=== PATIENT | female | born 1950 | race Caucasian/White ===

== ENCOUNTER 2019-11-10 20:00 | Outpatient (CLI) | payer MEDICARE, OTHER, SELFPAY | END 2019-11-10 20:01 | disposition home or self-care (01) | LOC: SLEEP 11-11 08:45 | PROVIDERS: Family Provider Internal Medicine; PCP Internal Medicine; Visit Provider Specialist | DX: G47.33 Obstructive sleep apnea (adult) (pediatric) (principal) | CPT/HCPCS: 95810; 95811 ==

== ENCOUNTER 2020-01-11 07:57 | Day surgery (SDC) | payer MEDICARE, OTHER, SELFPAY ==
[2020-01-08 07:49] VITALS: BMI 30.9
--- NOTE | 2020-01-11 08:34 | ANES.PREANE2 ---
Pre-Anesthetic Assessment Pre-Anesthetic Assessment: Height/Weight: Height 1.63 m Weight 81.647 kg Preop Diagnosis: dysphagia Proposed Procedure: Operation Date: 01/11/20 09:00 Proposed Procedures p EGD(Not Applicable) - Matthew Noel MD Was Beta Desmond taken within 24 hours: Yes Last intake: 1700 solid and liquid. Social: Social History: No alcohol and No tobacco (quit 1999. ) Exam: Pre-Anes Outpt Exam: alert, oriented x 3, clear to auscultation bilaterally and regular rate & rhythm Airway: Submandibular: Other Cervical ROM: WNL MP: 1 Dentition: Full Pulmonary: Pulmonary: MALDONADO and Sleep apnea (cpap) Comments: lung cancer CV/HEM: CV/HEM: Afib and HTN : : None reported Hepatic: Hepatic: None reported GI: GI: None reported Metabolic: Metabolic: Thyroid Musc/skel: Musc/skel: OA/DJD Neuropsych: Neuropsych: KRAUS Anesthetic Plan: ASA status: 3 Anesthesia: MAC PFSH Anesthesia PFSH: Social History Smoking and tobacco status: never smoked Alcohol intake: never Household members: spouse Housing: House Marital status: History of recent travel: No Data Anesthesia Cardiac Studies: No Data to Display
[2020-01-11 08:37] VITALS: BP 155/64; PULSE 73; RESP 20; TEMP 36.1; O2SAT 97
[2020-01-11] MEDS: sodium chloride 0.9% 1,000 ML 30 ML (08:56)
--- NOTE | 2020-01-11 08:59 | W.PM.OPSUD ---
Surgery/Procedure H&P Update DATE OF PROCEDURE: January 11, 2020 DATE H&P PERFORMED: 01/06/20 PREOP DIAGNOSIS: dysphagia PLANNED PROCEDURE: Operation Date: 01/11/20 09:00 Proposed Procedures p EGD(Not Applicable) - Matthew Noel MD
[2020-01-11 09:33] VITALS: BP 118/67; PULSE 67; RESP 16; TEMP 36.1
--- NOTE | 2020-01-11 09:36 | ANE.PACU2 ---
 Inpatient post-anesthesia follow up: Airway intact: Yes Vital signs: Temperature 97 F Pulse Rate 73 Respiratory Rate 20 Blood Pressure 155/64 Pulse Oximetry 97 Oxygen Delivery Me thod Room Air Oxygen Flow Rate Fraction of Inspir ed Oxygen Hydration adequate: Yes Nausea and vomiting: No Mental status: Baseline
[2020-01-11 09:48] VITALS: BP 122/85; PULSE 61; RESP 18; O2SAT 95
== END 2020-01-11 10:11 | disposition home or self-care (01) ==
PROVIDERS: Family Provider Internal Medicine; PCP Internal Medicine; Visit Provider Internal Medicine
PROC: 0DJ08ZZ Inspection of Upper Intestinal Tract, Via Natural or Artificial Opening Endoscopic (ICD-10-PCS; CPT 43235; principal; 2020-01-11 09:00)
DX: R13.10 Dysphagia, unspecified (principal); I48.91 Unspecified atrial fibrillation; K21.9 Gastro-esophageal reflux disease without esophagitis; Z85.118 Personal history of other malignant neoplasm of bronchus and lung; G47.33 Obstructive sleep apnea (adult) (pediatric); Z87.891 Personal history of nicotine dependence; G47.30 Sleep apnea, unspecified; I10 Essential (primary) hypertension; M19.90 Unspecified osteoarthritis, unspecified site
CPT/HCPCS: 12345; 43235; J2704; J7030

== ENCOUNTER 2020-03-11 13:07 | Outpatient (CLI) | payer MEDICARE, OTHER, SELFPAY ==
--- NOTE | 2020-03-11 13:30 | CT_ITS ---
WS: [id number] CT HEAD TECHNIQUE: Noncontrast and contrast-enhanced CT of the head. 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 FINDINGS: Prior postoperative changes right frontotemporal craniotomy with beam hardening artifact from aneury sm clips. Beam hardening artifact degrades images through the right temporal lobe. Chondromalacia at right temporal lobe. Right parietal shunt catheter with tip in the body of the left lateral ventricle . Lateral ventricles are stable since the prior examinations in 2018. Third ventricle measures 13 mm unchanged since April 10, 2019. Temporal lobes and fourth ventricle are decompressed. No significant transependymal edema. No evidenc e of progressive hydrocephalus. Mild small vessel changes with moderate parenchymal volume loss.Chronic lacunar infarct right thalamu s. Right parietal kolby hole. Mastoid air cells are well aerated. Paranasal sinuses are well aerated. Small left maxillary retentio n cyst. No abnormal intracranial enhancement. CT/CT head wo/w con [id number] IMPRESSION: 1. Right parietal shunt catheter with tip in the left lateral ventricle. No ev idence of progressive hydrocephalus. Stable dilatation of the third ventricle c ompared to April 10, 2019. No transependymal edema. 2. 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 Right parietal kolby hole. Marii m Bernardo artifact. 3. Chronic lacunar infarct right thalamus is unchanged. 4. No abnormal intracranial enhancement. 5. Mild small vessel changes with moderate parenchymal volume loss.
[2020-03-11 13:49] LABS: Blood Urea Nitrogen 12 mg/dL (8-23)
[2020-03-11] MEDS: iohexol 300 mg/mL 100 mL Btl IV (14:10)
== END 2020-03-11 13:08 | disposition home or self-care (01) ==
LOC: RADWPI 13:14
PROVIDERS: Family Provider Internal Medicine; PCP Internal Medicine; Visit Provider Internal Medicine
DX: Z98.2 Presence of cerebrospinal fluid drainage device (principal); I63.81 Other cerebral infarction due to occlusion or stenosis of small artery
CPT/HCPCS: 70470; 82565; 84520; Q9967

== ENCOUNTER → 2020-04-06 16:06 | Outpatient (BNVA) | payer MEDICARE, OTHER, SELFPAY | PROVIDERS: Family Provider Internal Medicine; PCP Internal Medicine; Visit Provider Internal Medicine | DX: R41.89 Other symptoms and signs involving cognitive functions and awareness (principal); E03.9 Hypothyroidism, unspecified; N39.0 Urinary tract infection, site not specified; Z98.2 Presence of cerebrospinal fluid drainage device | CPT/HCPCS: 80053; 82607; 84443; 85025 ==

== ENCOUNTER 2020-05-11 12:00 | Outpatient (CLI) | payer MEDICARE, OTHER, SELFPAY ==
--- NOTE | 2020-05-11 12:15 | MM_ITS ---
WS: [id number] BILATERAL SCREENING DIGITAL MAMMOGRAM WITH CAD HISTORY: SCREENING COMPARISON: 01/01/2019 and 12/25/2017 and 12/11/2017 Bilateral CC and MLO views submitted. Computer aided detection analyzed. Breast composition: The breasts are heterogeneously dense, which may obscure small masses. No suspici ous masses, microcalcifications or architectural distortion. MM/[place] [id number] IMPRESSION: BI-RADS: 1-Negative FOLLOW UP: 1 Year Follow-up
== END 2020-05-11 12:01 | disposition home or self-care (01) ==
LOC: RADSHAW 12:09
PROVIDERS: PCP Internal Medicine; Visit Provider Legal Medicine
DX: Z12.31 Encounter for screening mammogram for malignant neoplasm of breast (principal)
CPT/HCPCS: 77067

== ENCOUNTER 2020-10-27 15:23 | Inpatient (IN) | payer MEDICARE, OTHER, SELFPAY ==
[2020-10-27] VITALS (11 sets, daily range): BP systolic 121–176; BP diastolic 53–82; PULSE 66–98; RESP 16–25; TEMP 36.4–37.7; O2SAT 90–97; BMI 29.8
--- NOTE | 2020-10-27 | SCC_ITS ---
Procedure Done: Intramedullary nail left hip 95.8 seconds of fluoroscopic guidance, for a cumulative dose of 19.48 mGy, was provided to Dr. Esteves by the radiology department. C-arm images of the LEFT hip were saved for the patient's permanent record. [facility]
--- NOTE | 2020-10-27 15:45 | CTR_ITS ---
PROCEDURE INFORMATION: Exam: CT Head Without Contrast Exam date and time: 10/27/2020 4:01 PM Age: 70 years old Clinical indication: Injury or trauma; Blunt trauma (contusions or hematomas); Without loss of consciousness; Prior surgery; Surgery date: 6+ months; Surgery type: Lift Operator shunt; Patient HX: Nh PT w unwitnessed fall denies loc C/O L hip pain - multiple recent falls per staff TECHNIQUE: Imaging protocol: Computed tomography of the head without contrast. Radiation optimization: All CT scans at this facility use at least one of these dose optimization techniques: automated exposure control; mA and/or kV adjustment per patient size (includes targeted exams where dose is matched to clinical indication); or iterative reconstruction. COMPARISON: CT head wo/w con [id number] 03/11/2020 1:58 PM RADIATION DOSE METRICS: Total DLP (mGy-cm): 888.07 FINDINGS: Tubes, catheters and devices: Right parietal approach ventriculostomy catheter with its tip in the left lateral ventricle. Brain: There are moderate periventricular and subcortical lucencies consistent with chronic microvascular ischemic changes. Cerebral ventricles: No ventriculomegaly. Bones/joints: Right frontotemporal craniotomy . 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 Paranasal sinuses: Visualized sinuses are unremarkable. No fluid levels. Mastoid air cells: Visualized mastoid air cells are well aerated. Orbital cavity: Bilateral cataract surgery. Soft tissues: Unremarkable. CT/CT head wo con* [id number] IMPRESSION: No acute intracranial abnormality. Chronic microvascular ischemic changes. Radiation Dose CTDIVOL = (mGy): DLP = 888.07 (mGy-cm)
--- NOTE | 2020-10-27 15:45 | CTR_ITS ---
PROCEDURE INFORMATION: Exam: CT Abdomen And Pelvis Without Contrast Exam date and time: 10/27/2020 4:01 PM Age: 70 years old Clinical indication: Injury or trauma; Blunt; Lower; Prior surgery; Surgery date: 6+ months; Surgery type: Hyst, aneurysm; Patient HX: Nh PT w unwitnessed fall denies loc C/O L hip pain - multiple recent falls per staff TECHNIQUE: Imaging protocol: Computed tomography of the abdomen and pelvis without contrast. Radiation optimization: All CT scans at this facility use at least one of these dose optimization techniques: automated exposure control; mA and/or kV adjustment per patient size (includes targeted exams where dose is matched to clinical indication); or iterative reconstruction. COMPARISON: No relevant prior studies available. RADIATION DOSE METRICS: Total DLP (mGy-cm): 947.47 FINDINGS: Mediastinal space: Moderate size hiatal hernia. Liver: Normal. No mass. Gallbladder and bile ducts: Normal. No calcified stones. No ductal dilation. Pancreas: Normal. No ductal dilation. Spleen: Normal. No splenomegaly. Adrenal glands: Normal. No mass. Kidneys and ureters: 1.2 cm cyst in the lower pole of left kidney. Stomach and bowel: Diverticulosis of the sigmoid colon. Appendix: No evidence of appendicitis. Intraperitoneal space: Unremarkable. No free air. No significant fluid collection. Vasculature: Atherosclerotic calcification of the abdominal aorta and bilateral iliac vessels. Lymph nodes: Unremarkable. No enlarged lymph nodes. Urinary bladder: Unremarkable as visualized. Reproductive: Unremarkable as visualized. Bones/joints: There is acute comminuted fracture of the left femoral neck . Diffuse demineralization of the bones. Soft tissues: Bilateral inguinal hernias containing fat. A catheter, likely a AUTOMOTIVE LUBE TECHNICIAN shunt with its tip in the left lower abdomen. CT/CT abdomen pelvis wo con [id number] IMPRESSION: Acute comminuted fracture of the left femoral neck. COMMENTS: Consistent with the [employer]'s Incidental Findings Committee white paper (J Am Miguel Radiol 2018): Any incidental renal lesion less than 1 cm or classified as too small to characterize, or any incidental cystic renal lesion characterized as simple-appearing, is likely benign. No follow-up imaging is recommended for these lesions per consensus recommendations based on imaging criteria. Radiation Dose CTDIVOL = (mGy): DLP = 947.47 (mGy-cm)
--- NOTE | 2020-10-27 15:45 | XRR_ITS ---
PROCEDURE INFORMATION: Exam: XR Chest, 1 View Exam date and time: 10/27/2020 3:51 PM Age: 70 years old Clinical indication: Injury or trauma; Fall; Sprain or strain TECHNIQUE: Imaging protocol: XR of the chest Views: 1 view. COMPARISON: CR Chest 2 views* [id number] 12/21/2016 12:16 PM FINDINGS: Lungs: Unremarkable. No consolidation. Pleural space: Unremarkable. No pleural effusion. No pneumothorax. Heart/Mediastinum: Unremarkable. No cardiomegaly. Bones/joints: Unremarkable. XR/XR chest 1V portable [id number] IMPRESSION: No acute findings.
--- NOTE | 2020-10-27 15:56 | ED_ITS ---
HPI - Extremity Problem General: Chief complaint: Extremity Injury, Lower Stated complaint: FALL, L HIP PAIN Time Seen by Provider: 10/27/20 15:26 History of Present Illness: HPI Narrative: The patient is a 70-year-old female on Xarelto who comes to the ER after a fall. She says she was getting out of the bathroom and fell backwards hitting her tailbone and back of her head and upper neck. Says she still has pain in those areas. Denies loss of consciousn ess. She says she laid there for a while and then decided to call ambulance to come in. She is in severe pain in her tailbone region Pain Consistency: constant Quality: sharp Associated symptoms: Deny chest pain or rash Review of Systems 2 General: Reports: 10 or more systems reviewed and unremarkable except in HPI and below Const: Denies: fatigue Eyes: Denies: change in vision, blurry vision or eye redness ENMT: Denies: throat pain, swelling of lips/tongue, ear or mastoid pain or nasal congestion Card: Denies: chest pain, palpitations, irregular heart rhythm, edema, dyspnea on exertion or orthopnea Resp: Denies: dyspnea, productive cough or non-productive cough GI: Denies: abdominal pain, diarrhea or GI cramping : Denies: flank pain, difficulty voiding, urinary frequency or urinary urgency Musc: Reports: neck pain, back pain, joint pain and limited range of motion; Denies: extremity pain, joint redness or muscle weakness Skin/Breast: Denies: rash, pruritus, erythema, skin pain or skin tenderness Neuro: Reports: headache(s) and difficulty walking; Denies: numbness in extremities, weakness in extremities, sensory changes, dizziness, confusion or Slurred speech present Psych: Denies: anxiety or depression Endo: Denies: polyuria All/Imm: Denies: urticaria, throat swelling or tongue swelling PFSH ED PFSH: Medical History A-fib GERD (gastroesophageal reflux disease) H/O: lung cancer KRISTIN (obstructive sleep apnea) Surgical History S/P aneurysm repair X3 S/P hemorrhoidectomy S/P hysterectomy S/P LATHE WINDER shunt Social History Smoking and tobacco status: never smoked Alcohol intake: never Household members: spouse Housing: House Marital status: History of recent travel: No Physical Exam Const: COMMON NORMALS: no acute distress, average body habitus, patient oriented x3, no limitations, healthy appearing, alert and well nourished GENERAL APPEARANCE: cooperative, comfortable, well kempt and well developed ORIENTATION/CONSCIOUSNESS: Yes awake, Yes oriented to person, Yes oriented to place and Yes oriented to time HENMT: COMMON NORMALS: normocephalic, external ears normal and Normal external nose present HEAD & SCALP: normal to inspection and normocephalic NOSE: Normal external nose present EXTERNAL EAR: Yes external ears normal MOUTH: Normal oral and palatal mucosa present THROAT: posterior oropharynx normal Eye: COMMON NORMALS: Equal, round and reactive pupils present and EOMs intact bilaterally GENERAL EYE: appearance normal, both eyes and all related structures PUPIL: Yes Equal, round and reactive pupils present Neck/C-Spine: COMMON NORMALS: full ROM, no lymphadenopathy, no meningeal signs and no JVD GENERAL: Yes normal visual inspection OTHER: Mild tenderness to paracervical musculature. No midline tenderness or bony step-offs. Mild tenderness to posterior scalp no significant bruising or abrasions seen. Lymph: LYMPHATIC: no lymphadenopathy noted Chest: COMMONS NORMALS: normal inspection of the chest and normal palpation of entire chest wall Resp: COMMON NORMALS: normal respiratory effort, No retractions, No use of accessory muscles, clear to auscultation bilaterally and percussion normal EFFORT & INSPECTION: Yes able to speak in complete sentences AUSCULTATION: clear to auscultation bilaterally PERCUSSION: percussion normal Cardio: COMMON NORMALS: no JVD, regular rate, regular rhythm, S1 normal heart sound present, S2 normal heart sound present and Peripheral pulses 2+ throughout RATE: regular rate RHYTHM: regular rhythm HEART SOUNDS: S1 normal heart sound present and S2 normal heart sound present PERIPHERAL PULSES: Peripheral pulses 2+ throughout GI: COMMON NORMALS: Normal to inspection, nondistended, normoactive bowel sounds present, Soft to palpation, non-tender and no masses INSPECTION: Yes normal to inspection PALPATION: Yes Soft to palpation : COMMON NORMALS: Yes no CVA tenderness BLADDER/KIDNEY EXAM: Yes no CVA tenderness Back/Pelvis: COMMON NORMALS: no CVA tenderness and thoracic and lumbar spine normal to inspection LUMBAR SPINE/LOWER BACK: Yes ROM limited, Yes pain with ROM, Yes lumbar spinal tenderness and Yes paraspinal muscle tenderness SACRUM: tenderness COCCYX: Coccyx tenderness present BACK IMAGE (FEMALE): 1. Severe pain and tenderness Extremity: COMMON NORMALS: normal to inspection, full ROM, capillary refill normal, no joint enlargement and no pedal edema GENERAL: Yes normal exam except as noted Neuro: COMMON NORMALS: patient oriented x3, CN's II-XII intact bilaterally, moves all extremities, no focal motor deficits, no sensory deficits noted and gait normal SENSORIUM/ORIENTATION: Yes alert, Yes oriented to person, Yes oriented to place and Yes oriented to time MENINGEAL SIGNS: Yes no meningeal signs Psych: COMMON NORMALS: mental status grossly normal, Normal thought process present, cooperative, normal affect and speech normal APPEARANCE: Yes well kempt ATTITUDE: Yes calm SPEECH: Yes normal speech THOUGHT PROCESS: Normal thought process present Skin: COMMON NORMALS: no rashes or lesions noted GENERAL SKIN EXAM: no rashes or lesions noted Course Vital Signs: Vital signs: Vital Signs Temperature 97.5 F L 10/27/20 15:23 Pulse Rate 79 10/27/20 16:31 Respiratory Rate 21 H 10/27/20 16:31 Blood Pressure 163/75 10/27/20 15:31 Pulse Oximetry 97 10/27/20 16:31 MDM - Extremity (Nontraumatic) MDM Narrative: Medical decision making narrative: The patient came in after a fall. She has a fracture to her left femoral neck. Discussed with Dr. Esteves who will see her tomorrow. Dr. Wade accepts for her care upstairs Lab Data: Labs: Lab Results 10/27/20 10/27/20 10/27/20 Range/Units 16:50 16:50 16:50 WBC 15.5 H (4.0-10.0) 10^3/ uL RBC 4.38 (4.1-5.3) 10^6/u L Hgb 12.7 (11.5-15.3) g/dL Hct 39.4 (37.0-47.0) % MCV 90.0 (81-99) fL MCH 29.0 (28.0-34.0) pg MCHC 32.2 (30.0-36.0) g/dL RDW 13.1 (12.1-15.1) % Plt Count 321 (130-400) 10^3/c mm MPV 8.9 (7.4-10.4) fL Neut % (Auto) 83.8 % Lymph % (Auto) 11.0 % [place] % (Auto) 3.8 % Eos % (Auto) 0.3 % Baso % (Auto) 0.3 % Neut # (Auto) 12.95 H (1.8-7.7) 10^3/u L Lymph # (Auto) 1.7 (0.8-4.8) 10^3/u L [place] # (Auto) 0.6 (0.2-0.9) 10^3/u L Eos # (Auto) 0.1 (0.0-0.8) 10^3/u L Baso # (Auto) 0.1 (0.0-0.1) 10^3/u L Nucleated RBC % (a uto) 0 % Nucleated RBCs # 0.0 /100WBC Sodium 141 (136-145) mmol/L Potassium 3.9 (3.5-5.1) mmol/L Chloride 104 (98-107) mmol/L Carbon Dioxide 27 (22-29) mmol/L Anion Gap 13.9 (5-19) BUN 26 H (8-23) mg/dL Creatinine 1.3 H (0.5-0.9) mg/dL GFR Calculation Not Reportable Glucose 120 H (65-115) mg/dL Calculated Osmolal ity 298 H (285-295) mOsm/k g Calcium 9.7 (8.5-10.5) mg/dL Total Bilirubin 0.4 (0.15-1.2) mg/dL AST 38 H (0-32) U/L ALT 30 (0-33) U/L Alkaline Phosphata se 105 (35-105) IU/L Total Protein 7.3 (6.6-8.7) g/dL Albumin 4.1 (3.5-5.2) g/dL Globulin 3.2 (1.3-4.6) g/dL Urine Color Yellow (Yellow) Urine Appearance Hazy A (CLEAR) Urine pH 5 (5-7) Ur Specific Gravit y 1.020 (1.005-1.030) Urine Protein Neg (Negative) Urine Glucose (UA) Norm (Normal) Urine Ketones Negative (Negative) Urine Blood Neg (Negative) Urine Nitrate Negative (Negative) Urine Bilirubin Neg (Negative) Urine Urobilinogen Norm (Negative) mg/dL Ur Leukocyte Laila ase Negative (Negative) Amorphous Sediment Not Reportable Discharge Plan Discharge Prescriptions: No Action Xarelto 20 mg tablet 20 mg PO DAILY@08 RF: 0 metoprolol succinate 25 mg tablet extended release 24 hr 25 mg PO DAILY@08 RF: 0 Advair HFA 115-21 mcg/actuation HFA aerosol inhaler 2 puff INHALATION BID PRN (Reason: sob) Qty: 36 RF: 3 doxycycline hyclate 100 mg capsule 100 mg PO BID@08,20 RF: 0 citalopram 40 mg tablet 40 mg PO DAILY@08 RF: 0 levothyroxine [Synthroid] 25 mcg tablet 25 mcg PO DAILY@06 RF: 0 pantoprazole 40 mg tablet,delayed release (DR/EC) 40 mg PO DAILY@06 RF: 0 fluticasone propionate [Allergy Relief (fluticasone)] 50 mcg/actuation spray,suspension 2 spray INTRANASAL BID@08,20 RF: 0 quetiapine 50 mg tablet 50 mg PO BID@08,20 RF: 0 Discharge Diet: Usual diet Discharge Activity: Bedrest Coding Level of Care Code ED Registered Physical Therapist for [facility]el[facility] Fwd Exam Comprehensive
--- NOTE | 2020-10-27 16:44 | XRR_ITS ---
PROCEDURE INFORMATION: Exam: XR Cervical Spine, 2 or 3 Views Exam date and time: 10/27/2020 5:07 PM Age: 70 years old Clinical indication: Injury or trauma; Fall; Sprain or strain, cervical ligaments; Prior surgery; Surgery date: 6+ months TECHNIQUE: Imaging protocol: XR of the cervical spine, 2 or 3 views. COMPARISON: MRA Carotid wo contrast [id number] 07/12/2016 12:28 PM FINDINGS: Tubes, catheters and devices: A right-sided CARDIAC CATHETERIZATION TECHNICIAN shunt catheter is visualized. Bones/joints: Degenerative changes of the spine. Soft tissues: Unremarkable. Vasculature: Atherosclerotic calcification of the aortic arch. XR/XR cervical spine 3V* [id number] IMPRESSION: No acute abnormality.
--- NOTE | 2020-10-27 16:49 | ECG_ITS ---
[facility] Test Date: 2020-10-27 Pat Name: Hilary Moreno Department: Room: Gender: Female Cardiac Care Unit Nurse: : 1950 Requested By: Ted Arellano Order Number: [id number] Mcmahan MD: Joon Almeida M.D. Measurements Intervals [place] Rate: 65 P: 82 CT: 171 QRS: 36 QRSD: 86 T: 63 QT: 425 QTc: 444 Interpretive Statements SINUS RHYTHM WITH SINUS ARRHYTHMIA No previous ECG available for comparison Electronically Signed On 10-28-2020 17:56:27 TOOL ROOM ATTENDANT by Joon Almeida M.D. [email or web address]
[2020-10-27 17:03] LABS: Basophils # 0.1 10^3/uL (0.0-0.1); Basophils % 0.3 %; Eosinophils # 0.1 10^3/uL (0.0-0.8); Eosinophils % 0.3 %; Hematocrit 39.4 % (37.0-47.0); Hemoglobin 12.7 g/dL (11.5-15.3); Lymphocytes # 1.7 10^3/uL (0.8-4.8); Mean Corpuscular HGB Conc 32.2 g/dL (30.0-36.0); Mean Platelet Volume 8.9 fL (7.4-10.4); Monocytes # 0.6 10^3/uL (0.2-0.9); Monocytes % 3.8 %; Neutrophils # 12.95 10^3/uL (1.8-7.7); Neutrophils % 83.8 %; Nucleated Red Blood Cells % 0 %; Platelet Count 321 10^3/cmm (130-400); Red Blood Count 4.38 10^6/uL (4.1-5.3); Red Cell Distribution Width 13.1 % (12.1-15.1); White Blood Count 15.5 10^3/uL (4.0-10.0)
[2020-10-27 17:28] LABS: Alanine Aminotransferase 30 U/L (0-33); Albumin Level 4.1 g/dL (3.5-5.2); Alkaline Phosphatase 105 IU/L (35-105); Anion Gap 13.9 (5-19); Aspartate Amino Transferase 38 U/L (0-32); Blood Urea Nitrogen 26 mg/dL (8-23); Calcium 9.7 mg/dL (8.5-10.5); Carbon Dioxide 27 mmol/L (22-29); Chloride 104 mmol/L (98-107); Globulin 3.2 g/dL (1.3-4.6); Glucose 120 mg/dL (65-115); Osmolality Calculated 298 mOsm/kg (285-295); Potassium 3.9 mmol/L (3.5-5.1); Sodium 141 mmol/L (136-145); Total Bilirubin 0.4 mg/dL (0.15-1.2); Total Protein 7.3 g/dL (6.6-8.7)
[2020-10-27 17:50] LABS: Add Urine Microscopic? YES; Bilirubin Urine Neg (Negative); Blood Urine Neg (Negative); Glucose Urine UA Norm (Normal); Ketones Urine Negative (Negative); Leukocyte Esterase Urine Negative (Negative); Nitrate Urine Negative (Negative); Protein Urine Neg (Negative); Urine Appearance Hazy (CLEAR); Urine Color Yellow (Yellow); Urobilinogen Urine Norm (Negative); pH Urine 5 (5-7)
[2020-10-27 18:01] LABS: Add Urine Culture? No; Bacteria Urine 1+ /hpf; Mucus Urine 2+ /hpf; RBC Urine 0-4 /hpf (0-2)
[2020-10-27] MEDS: morphine 4 mg/mL SDV 1 mL 2 MG IVP ×2 (18:04→21:33)
--- NOTE | 2020-10-27 18:41 | P.HP_ITS ---
Providers/Chief Complaint Primary Care Provider: Matthew Noel MD Chief Complaint: FALL, L HIP PAIN History of Present Illness Hilary Moreno is a 70 year old female with a past medical history of atrial fibrillation on Xarelto, history of ventricular peritoneal shunt, history of stroke, history of pulmonary emboli, dementia, GERD, KRISTIN who presents to [facility] status post fall. Currently patient is alert to person, place, not to time, she at times is fairly scattered, is difficult to get a straight answer from her. She tells me that today she was in a local hardware store, she is playing with her grandkids, when she turned around, and fell to the ground, hitting her tailbone, the back of her head, her upper neck, no loss of consciousness, no preceding chest pain, no palpitations, no loss of consciousness, no seizure-like episodes, no urinary or bowel incontinence, currently having severe pain over the right pelvis Patient also repeats intermittent episodes of chest pain, denies a cardiovascular history, does have a history of atrial fibrillation, chest pain is substernal, fairly nonspecific, nonradiating, not associate with lightheadedness, dizziness, no diaphoresis Review of Systems Const: Denies: fever(s), chills, fatigue or malaise Eyes: Denies: change in vision or blurry vision ENMT: Denies: nasal congestion Resp: Denies: dyspnea, productive cough, non-productive cough or wheezing GI: Denies: abdominal pain, nausea, vomiting, hematemesis, diarrhea, constipation, hematochezia or melena : Denies: flank pain, dysuria or urinary frequency Musc: Reports: neck pain, back pain, extremity pain and joint pain Skin/Breast: Denies: rash Neuro: Denies: headache(s), dizziness or vertigo Psych: Denies: anxiety or depression Endo: Denies: polyuria or polydipsia Medications/Allergies Home Medications Medication Instructions Recorded Confirmed Last Taken Type rivaroxaban 20 mg tablet 20 mg PO DAILY@11/12/19 10/27/20 10/27/20 History fluticasone propionate 115 2 puff INHALATION BID PRN #36 gm 03/10/20 10/27/20 Unknown Rx mcg-salmeterol 21 mcg/actuation HFA inhaler metoprolol succinate 25 mg 25 mg PO DAILY@08 10/10/20 10/27/20 10/27/20 History tablet,extended release 24 hr citalopram 40 mg PO DAILY@10/27/20 10/27/20 10/27/20 History doxycycline hyclate 100 mg PO BID@10/27/20 10/27/20 10/27/20 History fluticasone propionate [Allergy 2 spray INTRANASAL BID@10/27/20 10/27/20 10/27/20 History Relief (fluticasone)] levothyroxine [Synthroid] 25 mcg PO DAILY@10/27/20 10/27/20 10/27/20 History pantoprazole 40 mg PO DAILY@10/27/20 10/27/20 10/27/20 History quetiapine 50 mg PO BID@10/27/20 10/27/20 10/27/20 History Allergies Allergy/AdvReac Type Severity Reaction Status Date / Time lorazepam [From Ativan] Allergy Unknown Verified 10/24/20 12:52 PFSH Acute PFSH: Medical History (Updated 10/27/20 @ 18:52 by Darshan Wade MD) A-fib Cataract Cerebral aneurysm Chronic diarrhea GERD (gastroesophageal reflux disease) H/O: lung cancer History of CVA (cerebrovascular accident) History of pulmonary embolism Hyperthyroidism Hypertriglyceridemia KRISTIN (obstructive sleep apnea) Primary osteoarthritis of left knee Surgical History (Updated 10/27/20 @ 18:48 by Darshan Wade MD) History of esophagogastroduodenoscopy (EGD) 06/14/2014 S/P aneurysm repair X3 S/P appendectomy S/P arterial stent S/P colonoscopy 06/14/2014- REFLUX ESOGAPHAGITIS- GASTRITIS S/P hemorrhoidectomy S/P hysterectomy S/P ventriculoperitoneal shunt S/P COPYIST shunt Social History Smoking and tobacco status: never smoked Alcohol intake: never Household members: spouse Housing: House Marital status: History of recent travel: No Vitals/I&O/Wt Last Vital Signs Temp 97.5 F L 10/27/20 15:23 Pulse 87 10/27/20 18:00 Resp 18 10/27/20 18:04 BP 132/66 10/27/20 18:00 Pulse Ox 90 10/27/20 18:00 Weight last 48 hrs Weight 83.915 kg Physical Exam Const: COMMON NORMALS: no acute distress GENERAL APPEARANCE: cooperative and comfortable ORIENTATION/CONSCIOUSNESS: Yes awake, Yes oriented to person and Yes oriented to place; not oriented to time HENMT: COMMON NORMALS: normocephalic HEAD & SCALP: normocephalic Eye: COMMON NORMALS: Equal, round and reactive pupils present and EOMs intact bilaterally GENERAL EYE: appearance normal, both eyes and all related stru ctures PUPIL: Yes Equal, round and reactive pupils present Neck/C-Spine: COMMON NORMALS: full ROM, no lymphadenopathy, no JVD and Thyroid normal THYROID: Thyroid normal Lymph: LYMPHATIC: no lymphadenopathy noted Resp: COMMON NORMALS: normal respiratory effort, No retractions, No use of accessory muscles and clear to auscultation bilaterally AUSCULTATION: clear to auscultation bilaterally Cardio: COMMON NORMALS: no JVD, regular rate, regular rhythm, S1 normal heart sound present, S2 normal heart sound present, No gallops present (Cardio), No clicks present (Cardio) and No murmurs present (Cardio) RATE: regular rate RHYTHM: regular rhythm HEART SOUNDS: S1 normal heart sound present and S2 no rmal heart sound present GI: COMMON NORMALS: Normal to inspection, nondistended, normoactive bowel sounds present, Soft to palpation, non-tender and No hepatosplenomegaly present PALPATION: Yes Soft to palpation and Yes No hepatosplenomegaly present Extremity: COMMON NORMALS: normal to inspection, full ROM and no pedal edema Neuro: COMMON NORMALS: patient oriented x3, CN's II-XII intact bilaterally and no focal motor deficits OTHER: Does not move the right extremity, has right pelvic pain Psych: COMMON NORMALS: mental status grossly normal, Normal thought process present and cooperative THOUGHT PROCESS: Normal thought process present Urinary Catheter Management^: Gar: Cath Placed During This Visit: yes Reason for Continuing Indwelling Catheter: Required Immobilization for Trauma or Surgery or Anesthesia Urinary Catheter Date of Insertion: 10/27/20 Urinary Catheter Time of Insertion: 17:28 Data : 10/27/20 16:50 10/27/20 16:50 A&P Assessment and plan (1) Fracture of hip: -Acute comminuted fracture of the left femoral neck -Anticoagulation currently Xarelto on hold -SCDs -Pain control with morphine -Orthopedic surgery on consult -Patient has chest pain, will have to have a cardiac evaluation -Risk factors include prior history of stroke, pulmonary emboli Status: Acute (2) Dementia with behavioral disturbance: - Status: Acute (3) UTI (urinary tract infection): Rocephin Status: Acute (4) Acute kidney injury: Gentle IV hydration Status: Acute (5) GERD (gastroesophageal reflux disease): Status: Acute (6) A-fib: -Continue metoprolol - telemetry monitoring -Hold Xarelto Status: Acute (7) KRISTIN (obstructive sleep apnea): Will start CPAP Status: Acute (8) History of CVA (cerebrovascular accident): Brain: There are moderate periventricular and subcortical lucencies consistent with chronic microvascular ischemic changes. Cerebral ventricles: No ventriculomegaly. Bones/joints: Right frontotemporal craniotomy . 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 Paranasal sinuses: Visualized sinuses are unremarkable. No fluid levels. Mastoid air cells: Visualized mastoid air cells are well aerated. Orbital cavity: Bilateral cataract surgery. Soft tissues: Unremarkable. Status: Inactive (9) History of pulmonary embolism: -Has finished Xarelto therapy Status: Inactive (10) Chest pain: -Atypical chest pain -Initial EKG shows sinus tachycardia, no acute ST-T wave changes -Serial troponins, serial EKGs, cardiac echo -Telemetry monitoring -N.p.o. midnight for stress test tomorrow morning Status: Acute Attestations Medical Necessity Statement*: Patient requires hospitalization, inpatient, greater than 2 midnights, for left hip fracture, chest pain Coding Level of Care Code Acute Motors And Controls Tester for [facility] Fwd Diagnoses Fracture of hip S72.009A Dementia with behavioral disturbance F03.91 UTI (urinary tract infection) N39.0 Acute kidney injury N17.9 GERD (gastroesophageal reflux disease) K21.9 A-fib I48.91 KRISTIN (obstructive sleep apnea) G47.33 History of CVA (cerebrovascular accident) Z86.73 History of pulmonary embolism Z86.711 Chest pain R07.9
--- NOTE | 2020-10-27 18:53 | P.PN_ITS ---
Subjective Subjective: Interval history: chart and images reviewed will put full consult in am Plan to do IM hip nail in am at 9 Vitals/I&O/Wt Last Vital Signs Temp 97.5 F L 10/27/20 15:23 Pulse 87 10/27/20 18:00 Resp 18 10/27/20 18:04 BP 132/66 10/27/20 18:00 Pulse Ox 90 10/27/20 18:00 Weight last 48 hrs Weight 185 lb Physical Exam Urinary Catheter Management^: Gar: Cath Placed During This Visit: yes Reason for Continuing Indwelling Catheter: Required Immobilization for Trauma or Surgery or Anesthesia Urinary Catheter Date of Insertion: 10/27/20 Urinary Catheter Time of Insertion: 17:28 Data : 10/27/20 16:50 10/27/20 16:50 Attestations Medical Necessity Statement*: surgery Coding Level of Care Code Acute 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
--- NOTE | 2020-10-27 18:56 | XRR_ITS ---
PROCEDURE INFORMATION: Exam: XR Left Hip with Pelvis when Performed Exam date and time: 10/27/2020 7:59 PM Age: 70 years old Clinical indication: Injury or trauma; Fall; Blunt trauma (contusions or hematomas); Injury date: 10/27/20; Injury details: PT fell on left hip, pain in left hip; Additional info: Plan to do surgery on left hip in am TECHNIQUE: Imaging protocol: XR Left hip with pelvis when performed. Views: 2 or 3 views. COMPARISON: CT abdomen pelvis wo con [id number] 10/27/2020 4:13 PM FINDINGS: Bones/joints: Acute comminuted fracture of the left femoral neck. The femoral head remains located in the acetabulum. Degenerative changes of the right hip joint. Soft tissues: Unremarkable. XR/XR hip LT 2-3V wo/w pel* [id number] IMPRESSION: Acute comminuted fracture of the left femoral neck.
--- NOTE | 2020-10-27 20:34 | ECG_ITS ---
[facility] Test Date: 2020-10-27 Pat Name: Hilary Moreno Department: Room: Gender: Female Cardiology Technologist: : 1950 Requested By: Darshan Wade Order Number: [id number] Martir MD: Abiola Hannon M.D. Measurements Intervals [place] Rate: 88 P: 77 CT: 178 QRS: 49 QRSD: 85 T: 58 QT: 383 QTc: 464 Interpretive Statements SINUS RHYTHM Compared to ECG 10/27/2020 15:46:21 Sinus arrhythmia no longer present Electronically Signed On 10-30-2020 10:02:56 JUSTOWRITER OPERATOR by Abiola Hannon M.D. [id number]
--- NOTE | 2020-10-27 21:20 | PC.NURSE ---
waiting on pharmacy to verify meds attempted to contact, but no answer to my call.
[2020-10-27 21:28] LABS: Lactic Sepsis W/Reflex 1.3 mmol/L (0.5-2.2)
[2020-10-27] MEDS: cefTRIAXone 1,000 MG in sodium chloride 0.9% (plus) 50 ML 100 MG IV (21:34)
[2020-10-27] MEDS: sodium chloride 0.9% 1,000 ML 75 ML IV (21:34)
[2020-10-27] MEDS: quetiapine 25 mg Tablet 50 MG PO (21:34)
[2020-10-27 21:40] LABS: NT Pro B Type Natriuretic Pept 731 pg/mL (0-125); Thyroid Stimulating Hormone 2.67 uIU/mL (0.27-4.20)
[2020-10-28] VITALS (24 sets, daily range): BP systolic 129–171; BP diastolic 46–103; PULSE 88–99; RESP 13–22; TEMP 36.5–37.2; O2SAT 18–98
--- NOTE | 2020-10-28 | XR_ITS ---
WS: [id number] Exam: XR hip LT 2-3V wo/w pel* [id number] Date/Time of Exam: 10/28/2020 12:00 AM Reason For Exam: OR PICS Comparison 10/27/2020. Previously noted comminuted intertrochanteric fracture of the left hip is been stabilized with an int ramedullary larry and femoral neck screw. Alignment appears excellent for healing. Postoperative change s in the adjacent soft tissues. XR/XR hip LT 2-3V wo/w pel* [id number] IMPRESSION: 1. Satisfactory internal orthopedic fixation involving an intertrochanteric fra cture of the left hip.
--- NOTE | 2020-10-28 00:30 | ECG_ITS ---
[facility] Test Date: 2020-10-28 Pat Name: Hilary Moreno Department: Room: 250 Gender: Female Closing Manager: : 1950 Requested By: Darshan Wade Order Number: [id number] Martir MD: Abiola Hannon M.D. Measurements Intervals [place] Rate: 89 P: 69 RI: 173 QRS: 3 QRSD: 89 T: 38 QT: 370 QTc: 453 Interpretive Statements SINUS RHYTHM MINIMAL VOLTAGE CRITERIA FOR LVH, CONSIDER NORMAL VARIANT [MEETS CRITERIA IN ONE OF: R(aVL), S(V1), R(V5), R(V5/V6)+S(V1)] NONSPECIFIC T-WAVE ABNORMALITY WARNING: DATA QUALITY MAY AFFECT INTERPRETATION Compared to ECG 10/27/2020 20:49:52 T-wave abnormality now present Electronically Signed On 10-30-2020 10:13:39 PHARMACY INFORMATICS MANAGER by Abiola Hannon M.D. [id number]
[2020-10-28 04:59] LABS: Basophils % 0.4 %; Eosinophils # 0.1 10^3/uL (0.0-0.8); Eosinophils % 0.8 %; Hematocrit 35.3 % (37.0-47.0); Hemoglobin 11.2 g/dL (11.5-15.3); Lymphocytes # 1.9 10^3/uL (0.8-4.8); Lymphocytes % 18.6 %; Mean Corpuscular HGB Conc 31.7 g/dL (30.0-36.0); Mean Corpuscular Hemoglobin 28.9 pg (28.0-34.0); Mean Platelet Volume 9.3 fL (7.4-10.4); Monocytes # 0.8 10^3/uL (0.2-0.9); Monocytes % 7.7 %; Neutrophils # 7.42 10^3/uL (1.8-7.7); Neutrophils % 72.2 %; Nucleated Red Blood Cells % 0 %; Platelet Count 268 10^3/cmm (130-400); Red Blood Count 3.88 10^6/uL (4.1-5.3); Red Cell Distribution Width 13.2 % (12.1-15.1); White Blood Count 10.3 10^3/uL (4.0-10.0)
[2020-10-28] MEDS: levothyroxine 25 mcg Tablet PO (05:11)
[2020-10-28] MEDS: sodium chloride 0.9% 1,000 ML 75 ML IV ×2 (05:11→22:52)
[2020-10-28] MEDS: pantoprazole DR 40 mg Tablet PO (05:11)
[2020-10-28 05:19] LABS: INR 1.31 (0.8-1.2)
[2020-10-28 05:32] LABS: Alanine Aminotransferase 23 U/L (0-33); Albumin Level 3.9 g/dL (3.5-5.2); Alkaline Phosphatase 93 IU/L (35-105); Aspartate Amino Transferase 30 U/L (0-32); Blood Urea Nitrogen 24 mg/dL (8-23); Carbon Dioxide 24 mmol/L (22-29); Chloride 107 mmol/L (98-107); Creatinine Clr Calc Pharmacy 50.4626; Globulin 2.5 g/dL (1.3-4.6); Glucose 102 mg/dL (65-115); Magnesium 1.8 mg/dL (1.7-2.3); Osmolality Calculated 298 mOsm/kg (285-295); Sodium 142 mmol/L (136-145); Total Bilirubin 0.4 mg/dL (0.15-1.2); Total Protein 6.4 g/dL (6.6-8.7)
[2020-10-28 05:37] LABS: Troponin(5th) Baseline 21 ng/L (0-10)
[2020-10-28 06:40] LABS: Troponin 5 2HR 19.53 ng/L (0-10)
[2020-10-28 06:41] LABS: Troponin 5 2HR Delta -1.47 ABS# (0-10)
[2020-10-28] MEDS: metoprolol succinate ER (24 HR) 25 mg Tablet PO (07:59)
--- NOTE | 2020-10-28 08:35 | PM.CONSULT ---
Providers/Reason For Consult Consulting Physican/Specialty*: hospitalist Reason for Consult*: left hip fracture Attending Physician: Darshan Wade MD Primary Care Provider: Matthew Noel MD History of Present Illness History of Present Illness Hilary Moreno is a 70 year old female with a past medical history of atrial fibrillation on Xarelto, history of ventricular peritoneal shunt, history of stroke, history of pulmonary emboli, dementia, GERD, KRISTIN who presents to [facility] status post fall. Currently patient is alert to person, place, not to time, she at times is fairly scattered, is difficult to get a straight answer from her. She tells me that today she was in a local hardware store, she is playing with her grandkids, when she turned around, and fell to the ground, hitting her tailbone, the back of her head, her upper neck, no loss of consciousness, no preceding chest pain, no palpitations, no loss of consciousness, no seizure-like episodes, no urinary or bowel incontinence, currently having severe pain over the right pelvis Review of Systems Narrative: General ROS: negative for weight changes, fever ENT ROS: negative for nasal congestion, drainage or bleeding, sore throat, dysphagia or ear pain Eyes: PERRL Hematological and Lymphatic ROS: negative for swollen glands or abnormal bleeding Endocrine ROS: negative for polyuria/polydpsia or new changes in weight Respiratory ROS: negative for cough, shortness of breath, or wheezing Cardiovascular ROS: negative for chest pain or dyspnea on exertion Gastrointestinal ROS: negative for reflux, abdominal pain, change in bowel habits, or black or bloody stools Musculoskeletal ROS: negative for back pain, neck pain, or joint pain or swelling except for current problem Neurological ROS: negative for TIA or stoke symptoms Skin: no rashes Meds/Allergies Home Medications and Allergies Home Medications Medication Instructions Recorded Confirmed Last Taken Type rivaroxaban 20 mg tablet 20 mg PO DAILY@11/12/19 10/27/20 10/27/20 History fluticasone propionate 115 2 puff INHALATION BID PRN #36 gm 03/10/20 10/27/20 Unknown Rx mcg-salmeterol 21 mcg/actuation HFA inhaler metoprolol succinate 25 mg 25 mg PO DAILY@10/10/20 10/27/20 10/27/20 History tablet,extended release 24 hr citalopram 40 mg PO DAILY@10/27/20 10/27/20 10/27/20 History doxycycline hyclate 100 mg PO BID@10/27/20 10/27/20 10/27/20 History fluticasone propionate [Allergy 2 spray INTRANASAL BID@10/27/20 10/27/20 10/27/20 History Relief (fluticasone)] levothyroxine [Synthroid] 25 mcg PO DAILY@10/27/20 10/27/20 10/27/20 History pantoprazole 40 mg PO DAILY@10/27/20 10/27/20 10/27/20 History quetiapine 50 mg PO BID@10/27/20 10/27/20 10/27/20 History Allergies Allergy/AdvReac Type Severity Reaction Status Date / Time lorazepam [From Ativan] Allergy Unknown Verified 10/24/20 12:52 Current Medications Current Medications Generic Name Dose Route Start Last Admin Trade Name Freq PRN Reason Stop Dose Admin Citalopram Hydrobromide 40 mg 10/28/20 08:00 10/28/20 07:54 Citalopram 20 Mg Tablet PO Not Given DAILY@08 [facility] Fluticasone Propionate 2 spray 10/27/20 20:34 10/28/20 07:54 Fluticasone Nasal [place] 16gm Btl INTRANASAL Not Given BID@, [facility] Sodium Chloride 1,000 mls @ 75 mls/hr 10/27/20 20:34 10/28/20 05:11 Sodium Chloride 0.9% IV 75 mls/hr .[id number] JASBIR Administration Ceftriaxone Sodium 1,000 mg/ 50 mls @ 100 mls/hr 10/27/20 20:34 10/27/20 21:34 Sodium Chloride IV 100 mls/hr Q24H JASBIR Administration Protocol Levothyroxine Sodium 25 mcg 10/28/20 06:00 10/28/20 05:11 Levothyroxine 25 Mcg Tablet PO 25 mcg DAILY@06 JASBIR Administration Metoprolol Succinate 25 mg 10/28/20 08:00 10/28/20 07:59 Metoprolol Succinate Er (24 Hr) 25 Mg Tablet PO 25 mg DAILY@08 JASBIR Administration Pantoprazole Sodium 40 mg 10/28/20 06:00 10/28/20 05:[address] 40 Mg Tablet PO 40 mg DAILY@06 [facility] Administration Quetiapine Fumarate 50 mg 10/27/20 20:34 10/28/20 07:55 Quetiapine 25 Mg Tablet PO Not Given BID@ [facility] PFSH Acute PFSH: Medical History (Updated 10/28/20 @ 08:42 by Nabil Esteves, DO) A-fib Cataract Cerebral aneurysm Chronic diarrhea GERD (gastroesophageal reflux disease) H/O: lung cancer History of CVA (cerebrovascular accident) History of pulmonary embolism Hyperthyroidism Hypertriglyceridemia KRISTIN (obstructive sleep apnea) Primary osteoarthritis of left knee Surgical History (Updated 10/27/20 @ 18:48 by Darshan Wade MD) History of esophagogastroduodenoscopy (EGD) 06/14/2014 S/P aneurysm repair X3 S/P appendectomy S/P arterial stent S/P colonoscopy 06/14/2014- REFLUX ESOGAPHAGITIS- GASTRITIS S/P hemorrhoidectomy S/P hysterectomy S/P ventriculoperitoneal shunt S/P DIRECTOR OF AGRONOMY shunt Social History Smoking and tobacco status: never smoked Alcohol intake: never Household members: spouse Housing: House Marital status: History of recent travel: No Vitals/I&O/Wt Last Vital Signs Temp 98.8 F 10/28/20 07:32 Pulse 90 10/28/20 07:32 Resp 18 10/28/20 07:32 BP 155/81 10/28/20 07:32 Pulse Ox 91 10/28/20 07:32 10/27/20 10/28/20 10/28/20 22:59 06:59 14:59 Intake Total 621.25 / 621.25 Output Total 475 / 475 Balance 146.25 / 146.25 Weight last 48 hrs Weight 185 lb Physical Exam Narrative: EXAM NARRATIVE: Skin: Intact and healthy Swelling: minimal Tenderness location: left hip pain Tenderness severity: severe No tenderness remaining ipsilateral extremity bones/joints R Sensation: Intact to light touch Motor exam: Flexes and extends toes and ankle, flexes and extends Urinary Catheter Management^: Gar: Cath Placed During This Visit: yes Reason for Continuing Indwelling Catheter: Other Urinary Catheter Date of Insertion: 10/27/20 Urinary Catheter Time of Insertion: 17:28 A&P Assessment and plan (1) Intertrochanteric fracture of left hip: Plan is to do a left hip nail. We will do this today. Status: Acute Consult Attestations Medical Necessity Statement: surgery today Coding Level of Care Code Acute Culinary Internship for [facility]ailon Diagnoses Intertrochanteric fracture of left hip S72.142A
[2020-10-28] MEDS: sodium chloride 0.9% 1,000 ML 30 ML IV (09:00)
--- NOTE | 2020-10-28 09:17 | P.ANESASSM_ITS ---
Pre-Anesthetic Assessment Pre-Anesthetic Assessment: Height/Weight: Height 1.68 m Weight 83.915 kg Temp Pulse Resp BP Pulse Ox 98.8 F 90 18 155/81 91 10/28/20 07:32 10/28/20 07:32 10/28/20 07:32 10/28/20 07:32 10/28/20 07:32 Preop Diagnosis: dysphagia Proposed Procedure: Operation Date: 10/28/20 09:00 Proposed Procedures p Trochanteric Femoral Nail(Left) - Nabil H Linn, DO Was Beta Desmond taken within 24 hours: Yes Last intake: Intake Last Liquid Date 10/27/20 Last Liquid Time 19:00 Last Solid Date 10/27/20 Last Solid Time 17:00 Social: Social History: Tobacco and No alcohol Comment: h/o of smoking Exam: Pre-Anes Outpt Exam: alert and clear to auscultation bilaterally Additional Exam Findings (including area of procedure): Irregular (h/o a.fib), pleasantly confused Airway: Submandibular: WNL Cervical ROM: WNL MP: 2 Dentition: Full Pulmonary: Pulmonary: COPD and Sleep apnea CV/HEM: CV/HEM: Afib, Anemia and HTN : : Chronic renal Insufficiency Hepatic: Hepatic: None reported GI: GI: GERD Metabolic: Metabolic: Thyroid Musc/skel: Comments: acute frx Neuropsych: Neuropsych: Dementia Anesthetic Plan: ASA status: 3 Anesthesia: General Risk of > 500 ml blood loss (7ml/kg in children): No Meds/Allergies Current Medications: Current Medications Generic Name Dose Route Start Last Admin Trade Name Freq PRN Reason Stop Dose Admin Citalopram Hydrobr omide 40 mg 10/28/20 08:00 10/28/20 07:54 Citalopram 20 Mg Tablet PO Not Given DAILY@08 JASBIR Fluticasone Propio natasha 2 spray 10/27/20 20:34 10/28/20 07:54 Fluticasone Nasa l [place] 16gm Btl INTRANASAL Not Given BID@08,20 JASBIR Sodium Chloride 1,000 mls @ 75 ml s/hr 10/27/20 20:34 10/28/20 05:11 Sodium Chloride 0.9% IV 75 mls/hr .[id number] JASBIR Administration Ceftriaxone Sodium 1,000 mg/ 50 mls @ 100 mls/ hr 10/27/20 20:34 10/27/20 21:34 Sodium Chloride IV 100 mls/hr Q24H JASBIR Administration Protocol Levothyroxine Sodi um 25 mcg 10/28/20 06:00 10/28/20 05:11 Levothyroxine 25 Mcg Tablet PO 25 mcg DAILY@06 JASBIR Administration Metoprolol Succina te 25 mg 10/28/20 08:00 10/28/20 07:59 Metoprolol Succi natasha Er (24 Hr) 25 Mg Tablet PO 25 mg DAILY@08 JASBIR Administration Pantoprazole Sodiu m 40 mg 10/28/20 06:00 10/28/20 05:[address] 40 Mg Tablet PO 40 mg DAILY@06 JASBIR Administration Quetiapine Fumarat e 50 mg 10/27/20 20:34 10/28/20 07:55 Quetiapine 25 Mg Tablet PO Not Given BID@ [facility] PFSH Anesthesia PFSH: Medical History (Updated 10/28/20 @ 08:42 by Nabil Esteves DO) A-fib Cataract Cerebral aneurysm Chronic diarrhea GERD (gastroesophageal reflux disease) H/O: lung cancer History of CVA (cerebrovascular accident) History of pulmonary embolism Hyperthyroidism Hypertriglyceridemia KRISTIN (obstructive sleep apnea) Primary osteoarthritis of left knee Surgical History (Updated 10/27/20 @ 18:48 by Darshan Wade MD) History of esophagogastroduodenoscopy (EGD) 06/14/2014 S/P aneurysm repair X3 S/P appendectomy S/P arterial stent S/P colonoscopy 06/14/2014- REFLUX ESOGAPHAGITIS- GASTRITIS S/P hemorrhoidectomy S/P hysterectomy S/P ventriculoperitoneal shunt S/P [employer] shunt Social History Smoking and tobacco status: never smoked Alcohol intake: never Household members: spouse Housing: House Marital status: History of recent travel: No Data Anesthesia CBC & Chem 7: 10/28/20 04:10 10/28/20 04:10 Other Labs: Laboratory Results - last 48 hr 10/27/20 10/27/20 10/27/20 16:50 16:50 16:50 WBC 15.5 H RBC 4.38 Hgb 12.7 Hct 39.4 MCV 90.0 MCH 29.0 MCHC 32.2 RDW 13.1 Plt Count 321 MPV 8.9 Neut % (Auto) 83.8 Lymph % (Auto) 11.0 [place] % (Auto) 3.8 Eos % (Auto) 0.3 Baso % (Auto) 0.3 Neut # (Auto) 12.95 H Lymph # (Auto) 1.7 [place] # (Auto) 0.6 Eos # (Auto) 0.1 Baso # (Auto) 0.1 Nucleated RBC % (auto) 0 Nucleated RBCs # 0.0 PT INR Sodium 141 Potassium 3.9 Chloride 104 Carbon Dioxide 27 Anion Gap 13.9 BUN 26 H Creatinine 1.3 H GFR Calculation Not Reportable Glucose 120 H Calculated Osmolality 298 H Lactic Acid Calcium 9.7 Phosphorus Magnesium Total Bilirubin 0.4 AST 38 H ALT 30 Alkaline Phosphatase 105 Troponin T Baseline Troponin T 120 Minute Delta Troponin T NT-Pro-B Natriuret Pep Total Protein 7.3 Albumin 4.1 Globulin 3.2 TSH Urine Color Yellow Urine Appearance Hazy A Urine pH 5 Ur Specific [place] 1.020 Urine Protein Neg Urine Glucose (UA) Norm Urine Ketones Negative Urine Blood Neg Urine Nitrate Negative Urine Bilirubin Neg Urine Urobilinogen Norm Ur Leukocyte Esterase Negative Urine RBC 0-4 H Urine WBC None Ur Squamous Epith Cells 5-10 H Amorphous Sediment Not Reportable Urine Bacteria 1+ H Hyaline Casts 5-10 H Urine Mucus 2+ 10/27/20 10/27/20 10/28/20 16:50 16:50 04:10 WBC RBC Hgb Hct MCV MCH MCHC RDW Plt Count MPV Neut % (Auto) Lymph % (Auto) [place] % (Auto) Eos % (Auto) Baso % (Auto) Neut # (Auto) Lymph # (Auto) [place] # (Auto) Eos # (Auto) Baso # (Auto) Nucleated RBC % (auto) Nucleated RBCs # PT INR Sodium Potassium Chloride Carbon Dioxide Anion Gap BUN Creatinine GFR Calculation Glucose Calculated Osmolality Lactic Acid 1.3 Calcium Phosphorus Magnesium Total Bilirubin AST ALT Alkaline Phosphatase Troponin T Baseline 21 H Troponin T 120 Minute Delta Troponin T NT-Pro-B Natriuret Pep 731 H Total Protein Albumin Globulin TSH 2.67 Urine Color Urine Appearance Urine pH Ur Specific [place] Urine Protein Urine Glucose (UA) Urine Ketones Urine Blood Urine Nitrate Urine Bilirubin Urine Urobilinogen Ur Leukocyte Esterase Urine RBC Urine WBC Ur Squamous Epith Cells Amorphous Sediment Urine Bacteria Hyaline Casts Urine Mucus 10/28/20 10/28/20 10/28/20 04:10 04:10 04:10 WBC 10.3 H RBC 3.88 L Hgb 11.2 L Hct 35.3 L MCV 91.0 MCH 28.9 MCHC 31.7 RDW 13.2 Plt Count 268 MPV 9.3 Neut % (Auto) 72.2 Lymph % (Auto) 18.6 [place] % (Auto) 7.7 Eos % (Auto) 0.8 Baso % (Auto) 0.4 Neut # (Auto) 7.42 Lymph # (Auto) 1.9 [place] # (Auto) 0.8 Eos # (Auto) 0.1 Baso # (Auto) 0.0 Nucleated RBC % (auto) 0 Nucleated RBCs # 0.0 PT 16.80 H INR 1.31 H Sodium 142 Potassium 4.0 Chloride 107 Carbon Dioxide 24 Anion Gap 15.0 BUN 24 H Creatinine 1.1 H GFR Calculation Not Reportable Glucose 102 Calculated Osmolality 298 H Lactic Acid Calcium 9.0 Phosphorus 3.0 Magnesium 1.8 Total Bilirubin 0.4 AST 30 ALT 23 Alkaline Phosphatase 93 Troponin T Baseline Troponin T 120 Minute Delta Troponin T NT-Pro-B Natriuret Pep Total Protein 6.4 L Albumin 3.9 Globulin 2.5 TSH Urine Color Urine Appearance Urine pH Ur Specific [place] Urine Protein Urine Glucose (UA) Urine Ketones Urine Blood Urine Nitrate Urine Bilirubin Urine Urobilinogen Ur Leukocyte Esterase Urine RBC Urine WBC Ur Squamous Epith Cells Amorphous Sediment Urine Bacteria Hyaline Casts Urine Mucus 10/28/20 06:06 WBC RBC Hgb Hct MCV MCH MCHC RDW Plt Count MPV Neut % (Auto) Lymph % (Auto) [place] % (Auto) Eos % (Auto) Baso % (Auto) Neut # (Auto) Lymph # (Auto) [place] # (Auto) Eos # (Auto) Baso # (Auto) Nucleated RBC % (auto) Nucleated RBCs # PT INR Sodium Potassium Chloride Carbon Dioxide Anion Gap BUN Creatinine GFR Calculation Glucose Calculated Osmolality Lactic Acid Calcium Phosphorus Magnesium Total Bilirubin AST ALT Alkaline Phosphatase Troponin T Baseline Troponin T 120 Minute 19.53 H Delta Troponin T -1.47 L NT-Pro-B Natriuret Pep Total Protein Albumin Globulin TSH Urine Color Urine Appearance Urine pH Ur Specific [place] Urine Protein Urine Glucose (UA) Urine Ketones Urine Blood Urine Nitrate Urine Bilirubin Urine Urobilinogen Ur Leukocyte Esterase Urine RBC Urine WBC Ur Squamous Epith Cells Amorphous Sediment Urine Bacteria Hyaline Casts Urine Mucus Cardiac Studies: No Data to Display
--- NOTE | 2020-10-28 09:24 | PC.CHAP ---
Pastoral Care Encounter/Spiritual Assessment Type of Contact [] Declined boiler testing technician visit [] Patient/Family/Request visit [] Outpatient visit [] Follow-up visit [] Physician referral [] Code/Alert [x] Routine visit [] Staff referral [] Actively dying [] Patient sleeping [] Family support [] [] Out of room [] Palliative care [] [] Receiving care in room [] Pre-surgical visit [] Trauma [] Long length of stay [] ICU visit [] Other: Relational/Emotional Strength [x] Patient feels connected with others/family/visitors/staff [] Distress [] Loneliness/isolation [] Abandonment Spirituality of Patient [x] Person of Mikki [] Attends Faith of their Mikki [] Believes in Prayer [] Reads Bible or Religion materials [] There are Spiritual issues to be addressed Dress Cap Maker Interventions [x] Prayer [x] Active listening [] Non-anxious presence [] Spiritual/emotional support [] Crisis/trauma care [] Spiritual counseling [] Bereavement support [] Provided bereavement packet [] Provided Bible/devotional materials [] Provided toy/stuffed animal, coloring book to patient or family member [] Provided Communion [] Anointing/[place] [] Salvation [x] Completed spiritual assessment [] Other: Impact on Illness or Injury [] Angry [] Fearful [] Anxious [] Often cries [] Exhaustion [] Unable to work [] Unable to attend caodaism [] Unable to walk/stand [] Unable to read [] Unable to drive [] Unable to eat/drink [] Unable to sleep [] Unable to be with family [] Patient intubated [] Other: Summary patient has great attitude feeling much better Time spent with patient 10 min
--- NOTE | 2020-10-28 09:50 | PC.OT ---
Patient is currently in surgery, evaluation will be completed on 10.29.2020.
--- NOTE | 2020-10-28 10:41 | PM.OP ---
Operative Report Date of procedure: October 28, 2020 Pre-op Diagnosis: left Intertrochanteric hip fracture Post-op diagnosis: same Procedure Done: Intramedullary nail left hip Procedure: Intramedullary nail left hip Patient was brought to the operative suite. After undergoing anesthesia place was placed on the [place] table. All areas of impingement were well-padded. Patient's fractured leg was attached to the boot on the bed. And the other leg was attached to the bar. Patient was positioned traction was applied in slight internal rotation in order to reduce the fracture. AP lateral fluoroscopy ensured the fracture was in the prone position. Next attention was brought to prepping and draping patient was prepped and draped in normal sterile fashion. Skin incision made proximal to the greater trochanter starting pin was inserted. Opening reamer was inserted. Canal was narrow it was reamed to 14 mm. The gamma nail from [facility] was inserted. It is a preposition. Then guidewire was placed into the femoral head and center center position on AP lateral fluoroscopy. The guidewire was was drilled. In the size 95 lag screw was placed. This was then locked in position proximally and slightly backed off. And then a locking screw was placed distally through the nail. This is a size 35. AP lateral fluoroscopy ensured the fracture and hardware preposition. Wounds were irrigated and closed with Vicryl and jocy.
--- NOTE | 2020-10-28 10:48 | SUR.OPER ---
Ancef 2 grams given IVP per anesthesia prior to case. Pulled from Anesthesia pyxis, unable to document in JAN.
[2020-10-28] MEDS: ondansetron 2 mg/ML SDV 2 mL 4 MG IVP (11:27)
--- NOTE | 2020-10-28 11:48 | ANE.PACU2 ---
Inpatient post-anesthesia follow up: Airway intact: Yes Vital signs: Temperature 98.2 F Pulse Rate [Monito r] 66 Pulse Rate 89 Respiratory Rate 16 Blood Pressure [Ri ght Arm] 163/75 Blood Pressure 154/77 Pulse Oximetry 95 Oxygen Delivery Me thod Nasal Cannula Oxygen Flow Rate 2 Fraction of Inspir ed Oxygen Hydration adequate: Yes Nausea and vomiting: No Pain level: 2 Mental status: Baseline
[2020-10-28] MEDS: morphine 4 mg/mL SDV 1 mL 2 MG IVP (12:24)
[2020-10-28 12:53] LABS: Troponin 5 6HR 22.67 ng/L (0-10)
[2020-10-28 13:04] LABS: Troponin 5 6HR Delta 3.14 ng/L (0-12)
--- NOTE | 2020-10-28 17:07 | P.PN_ITS ---
Subjective Subjective: Interval history: Patient was examined this afternoon, postoperatively, she is a bit confused, she does follow commands, knows her name, knows her birthdate, no she is that she is in the hospital, but does not know the date or time, does not know the president, has no particular complaints Vitals/I&O/Wt Last Vital Signs Temp 97.7 F 10/28/20 15:43 Pulse 99 10/28/20 15:43 Resp 18 10/28/20 15:43 BP 157/87 10/28/20 15:43 Pulse Ox 94 10/28/20 15:43 10/28/20 10/28/20 10/28/20 06:59 14:59 22:59 Intake Total 621.25 / 621.25 60 / 60 Output Total 475 / 475 200 / 200 250 / 450 Balance 146.25 / 146.25 -140 / -140 -250 / -390 Weight last 48 hrs Weight 83.915 kg Physical Exam Const: COMMON NORMALS: no acute distress ORIENTATION/CONSCIOUSNESS: Yes awake and Yes oriented to person; not oriented to place and not oriented to time HENMT: COMMON NORMALS: normocephalic HEAD & SCALP: normocephalic Neck/C-Spine: COMMON NORMALS: no JVD Resp: COMMON NORMALS: normal respiratory effort, No retractions, No use of accessory muscles and clear to auscultation bilaterally AUSCULTATION: clear to auscultation bilaterally Cardio: COMMON NORMALS: no JVD, regular rate, regular rhythm, S1 normal heart sound present and S2 normal heart sound present RATE: regular rate RHYTHM: regular rhythm HEART SOUNDS: S1 normal heart sound present and S2 normal heart sound present GI: COMMON NORMALS: Normal to inspection, nondistended, normoactive bowel sounds present, Soft to palpation, non-tender, No hepatosplenomegaly present, no masses and no bruits PALPATION: Yes Soft to palpation and Yes No hepatosplenomegaly present Extremity: COMMON NORMALS: capillary refill normal, no clubbing, cyanosis or edema, no calf tenderness and no pedal edema NARRATIVE EXTREMITY EXAM: Surgical site looks clean and dry Neuro: COMMON NORMALS: CN's II-XII intact bilaterally and moves all extremities SENSORIUM/ORIENTATION: Yes oriented to person, No oriented to place and No oriented to time Psych: COMMON NORMALS: mental status grossly normal Urinary Catheter Management^: Gar: Cath Placed During This Visit: yes Reason for Continuing Indwelling Catheter: Other Urinary Catheter Date of Insertion: 10/27/20 Urinary Catheter Time of Insertion: 17:28 Data : 10/28/20 04:10 10/28/20 04:10 A&P Assessment and plan (1) Fracture of hip: -Acute comminuted fracture of the left femoral neck status post intramedullary nail of left hip postop 0 -Anticoagulation currently Xarelto -SCDs -Postoperatively confused some component related to dementia, anesthesia, pain medication -Pain control with morphine -Orthopedic surgery on consult -PT OT -Will require care home placement Status: Acute (2) Dementia with behavioral disturbance: - Status: Acute (3) UTI (urinary tract infection): Rocephin Status: Acute (4) Acute kidney injury: Gentle IV hydration Status: Acute (5) GERD (gastroesophageal reflux disease): Status: Acute (6) A-fib: -Continue metoprolol - telemetry monitoring -Hold Xarelto Status: Acute (7) KRISTIN (obstructive sleep apnea): Will start CPAP Status: Acute (8) History of CVA (cerebrovascular accident): Brain: There are moderate periventricular and subcortical lucencies consistent with chronic microvascular ischemic changes. Cerebral ventricles: No ventriculomegaly. Bones/joints: Right frontotemporal craniotomy . 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 Paranasal sinuses: Visualized sinuses are unremarkable. No fluid levels. Mastoid air cells: Visualized mastoid air cells are well aerated. Orbital cavity: Bilateral cataract surgery. Soft tissues: Unremarkable. Status: Inactive (9) History of pulmonary embolism: -Has finished Xarelto therapy Status: Inactive (10) Chest pain: -Atypical chest pain -Initial EKG shows sinus tachycardia, no acute ST-T wave changes -Serial troponins, no significant delta troponin -Telemetry monitoring - echocardiogram pending -Stress test as outpatient Status: Acute Attestations Medical Necessity Statement*: Patient requires hospitalization for hip fracture, requiring care home placement Coding Level of Care Code Acute Lockstitch Front Edge Tape Sewer for [facility] Fwd Diagnoses Fracture of hip S72.009A Dementia with behavioral disturbance F03.91 UTI (urinary tract infection) N39.0 Acute kidney injury N17.9 GERD (gastroesophageal reflux disease) K21.9 A-fib I48.91 KRISTIN (obstructive sleep apnea) G47.33 History of CVA (cerebrovascular accident) Z86.73 History of pulmonary embolism Z86.711 Chest pain R07.9
--- NOTE | 2020-10-28 18:23 | PC.PT ---
Attempted to see patient in afternoon. Patient was able to state her own name, but was confused and intelligible. Will attempt evaluation tomorrow.
[2020-10-28] MEDS: cefTRIAXone 1,000 MG in sodium chloride 0.9% (plus) 50 ML 100 MG IV (21:09)
[2020-10-28] MEDS: quetiapine 25 mg Tablet 50 MG PO (21:09)
[2020-10-28] MEDS: doxycycline 100 mg Tablet PO (21:09)
[2020-10-28] MEDS: fluticasone nasal spray 16gm Btl 2 SPRAY INTRANASAL (22:51)
[2020-10-29] VITALS (10 sets, daily range): BP systolic 101–139; BP diastolic 62–84; PULSE 69–96; RESP 18–22; TEMP 36.6–37.4; O2SAT 92–99
[2020-10-29 05:36] LABS: Basophils # 0.1 10^3/uL (0.0-0.1); Basophils % 0.6 %; Eosinophils # 0.3 10^3/uL (0.0-0.8); Eosinophils % 2.5 %; Hematocrit 31.4 % (37.0-47.0); Hemoglobin 9.8 g/dL (11.5-15.3); Lymphocytes # 1.9 10^3/uL (0.8-4.8); Lymphocytes % 18.4 %; Mean Corpuscular HGB Conc 31.2 g/dL (30.0-36.0); Mean Corpuscular Hemoglobin 28.9 pg (28.0-34.0); Mean Corpuscular Volume 92.6 fL (81-99); Mean Platelet Volume 9.6 fL (7.4-10.4); Monocytes # 0.9 10^3/uL (0.2-0.9); Monocytes % 8.9 %; Neutrophils # 6.97 10^3/uL (1.8-7.7); Nucleated Red Blood Cells % 0 %; Platelet Count 222 10^3/cmm (130-400); Red Blood Count 3.39 10^6/uL (4.1-5.3); Red Cell Distribution Width 13.3 % (12.1-15.1); White Blood Count 10.1 10^3/uL (4.0-10.0)
[2020-10-29 05:53] LABS: INR 1.18 (0.8-1.2)
[2020-10-29] MEDS: levothyroxine 25 mcg Tablet PO (05:53)
[2020-10-29] MEDS: pantoprazole DR 40 mg Tablet PO (05:53)
[2020-10-29 05:58] LABS: Alanine Aminotransferase 14 U/L (0-33); Albumin Level 3.5 g/dL (3.5-5.2); Alkaline Phosphatase 75 IU/L (35-105); Anion Gap 11.6 (5-19); Aspartate Amino Transferase 18 U/L (0-32); Blood Urea Nitrogen 15 mg/dL (8-23); Calcium 8.3 mg/dL (8.5-10.5); Carbon Dioxide 24 mmol/L (22-29); Chloride 109 mmol/L (98-107); Globulin 2.3 g/dL (1.3-4.6); Glucose 92 mg/dL (65-115); Magnesium 1.8 mg/dL (1.7-2.3); Osmolality Calculated 292 mOsm/kg (285-295); Phosphorus 2.1 mg/dL (2.5-4.5); Potassium 3.6 mmol/L (3.5-5.1); Sodium 141 mmol/L (136-145); Total Bilirubin 0.4 mg/dL (0.15-1.2); Total Protein 5.8 g/dL (6.6-8.7)
[2020-10-29] MEDS: citalopram 20 mg Tablet 40 MG PO (07:58)
[2020-10-29] MEDS: rivaroxaban 10 mg Tablet 20 MG PO (07:58)
[2020-10-29] MEDS: metoprolol succinate ER (24 HR) 25 mg Tablet PO (07:58)
[2020-10-29] MEDS: doxycycline 100 mg Tablet PO ×2 (07:58→21:53)
[2020-10-29] MEDS: quetiapine 25 mg Tablet 50 MG PO ×2 (07:58→21:53)
[2020-10-29] MEDS: fluticasone nasal spray 16gm Btl 2 SPRAY INTRANASAL ×2 (08:01→21:53)
--- NOTE | 2020-10-29 08:16 | PM.PN ---
Subjective Subjective: Interval history: pain controlled Vitals/I&O/Wt Last Vital Signs Temp 99.4 F 10/29/20 04:00 Pulse 96 10/29/20 07:18 Resp 22 H 10/29/20 04:00 BP 126/69 10/29/20 04:00 Pulse Ox 96 10/29/20 04:00 10/28/20 10/29/20 10/29/20 22:59 06:59 14:59 Intake Total 1300 / 1360 240 / 1600 Output Total 250 / 450 500 / 950 Balance 1050 / 910 -260 / 650 Weight last 48 hrs Weight 185 lb Physical Exam Narrative: EXAM NARRATIVE: Skin: Intact and healthy Swelling: minimal Tenderness location: lef thip Tenderness severity: minor No tenderness remaining ipsilateral extremity bones/joints Sensation: Intact to light touch Motor exam: Flexes and extends toes and ankle, flexes and extends Urinary Catheter Management^: Gar: Cath Placed During This Visit: yes, but has since been removed by the nurse Reason for Continuing Indwelling Catheter: Decision to DC Catheter Urinary Catheter Date of Insertion: 10/27/20 Urinary Catheter Time of Insertion: 17:28 Date Urinary Catheter Removed: 10/29/20 Time Urinary Catheter Discontinued: 06:44 Data : 10/29/20 04:04 10/29/20 04:04 A&P Additional A&P Information POD #1 left hip IMHS WBAT Up With PT D/C planning Attestations Medical Necessity Statement*: needs PT Coding Level of Care Code Acute Insurance Checker for Edith Bailon
[2020-10-29] MEDS: acetaminophen 325 mg Tablet 650 MG PO (08:56)
--- NOTE | 2020-10-29 09:50 | CTR_ITS ---
PROCEDURE INFORMATION: Exam: CT Head Without Contrast Exam date and time: 10/29/2020 9:56 AM Age: 70 years old Clinical indication: Altered mental status/memory loss; Prior surgery; Additional info: AMS TECHNIQUE: Imaging protocol: Computed tomography of the head without contrast. Radiation optimization: All CT scans at this facility use at least one of these dose optimization techniques: automated exposure control; mA and/or kV adjustment per patient size (includes targeted exams where dose is matched to clinical indication); or iterative reconstruction. COMPARISON: CT head wo con* [id number] 10/27/2020 4:09 PM RADIATION DOSE METRICS: Total DLP (mGy-cm): 844.99 FINDINGS: Brain: Prominence of the cortical and cerebellar sulci. Chronic small vessel ischemic change and lacunar infarcts. Stable 2.5 mm nodular hyperdensity in the right temporal lobe (series 2: Image 20). Cerebral ventricles: Stable ventriculomegaly with the 3rd ventricle measuring 15 mm in transverse dimension. Right parietal ventriculostomy terminates in the left lateral ventricle. Bones/joints: Right temporal craniectomy. Paranasal sinuses: No sinus fluid. Mastoid air cells: No mastoid effusion. Vasculature: Aneurysm clips producing prominent beam hardening artifact. Vascular, basal ganglia, and dural calcifications. Soft tissues: Stable radiopaque density in the soft tissues lateral to the right orbit. When correlating with the previous study, no significant interval changes are present. CT/CT head wo con* [id number] IMPRESSION: Stable appearance of the brain, not significantly changed from 10/27/2020 . Radiation Dose CTDIVOL = (mGy): DLP = 844.99 (mGy-cm)
--- NOTE | 2020-10-29 09:52 | XRR_ITS ---
PROCEDURE INFORMATION: Exam: XR Chest, 1 View Exam date and time: 10/29/2020 9:56 AM Age: 70 years old Clinical indication: Shortness of breath; Additional info: SOB TECHNIQUE: Imaging protocol: XR of the chest Views: 1 view. COMPARISON: CR XR chest 1V portable [id number] 10/27/2020 3:52 PM FINDINGS: Lungs: Interstitial prominence. Poorly defined left basilar density, believed to represent epicardial. Correlation with PA and lateral chest radiographs can be performed for confirmation, as clinically indicated. Pleural space: No significant pleural effusion. Heart/Mediastinum: No cardiomegaly. Bones/joints: Degenerative change. Other findings: Obscuration of the right apex by the patient's mandible. XR/XR chest 1V portable [id number] IMPRESSION: Poorly defined left basilar density, believed to represent epicardial. Correlation with PA and lateral chest radiographs can be performed for confirmation, as clinically indicated.
[2020-10-29 11:08] LABS: Procalcitonin 0.13 ng/mL (0-0.5)
--- NOTE | 2020-10-29 16:27 | P.PN_ITS ---
Subjective Subjective: Interval history: This 18 patient was examined, she is alert to person, not to place, not to time, her has left nursing staff know that she does have moderate dementia, she does follow commands such as squeezing my fingers, is difficult to get answers from her at times, and she is quite tangential, she has no particular complaints, afebrile overnight, normotensive Vitals/I&O/Wt Last Vital Signs Temp 98.1 F 10/29/20 12:00 Pulse 88 10/29/20 12:00 Resp 18 10/29/20 12:00 BP 101/70 10/29/20 12:00 Pulse Ox 92 10/29/20 12:00 10/29/20 10/29/20 10/29/20 06:59 14:59 22:59 Intake Total 300 / 1660 480 / 480 Output Total 500 / 950 Balance -200 / 710 480 / 480 Physical Exam Const: COMMON NORMALS: no acute distress and alert ORIENTATION/CONSCIOUSNESS: Yes awake, Yes oriented to person and Yes confused; not oriented to place and not oriented to time HENMT: COMMON NORMALS: normocephalic HEAD & SCALP: normocephalic Neck/C-Spine: COMMON NORMALS: no JVD Resp: COMMON NORMALS: normal respiratory effort, No retractions, No use of accessory muscles and clear to auscultation bilaterally AUSCULTATION: clear to auscultation bilaterally Cardio: COMMON NORMALS: no JVD, regular rate, regular rhythm, S1 normal heart sound present and S2 normal heart sound present RATE: regular rate RHYTHM: regular rhythm HEART SOUNDS: S1 normal heart sound present and S2 normal heart sound present GI: COMMON NORMALS: Normal to inspection, nondistended, normoactive bowel sounds present, Soft to palpation, non-tender, No hepatosplenomegaly present, no masses and no bruits PALPATION: Yes Soft to palpation and Yes No hepatosplenomegaly present Extremity: COMMON NORMALS: capillary refill normal, no clubbing, cyanosis or edema, no calf tenderness and no pedal edema Neuro: SENSORIUM/ORIENTATION: Yes alert, Yes oriented to person, No oriented to place and No oriented to time OTHER: Difficult to do with neurologic exam, as patient does not follow neurologic testing Psych: COMMON NORMALS: mental status grossly normal Urinary Catheter Management^: Gar: Cath Placed During This Visit: yes, but has since been removed by the nurse Reason for Continuing Indwelling Catheter: Decision to DC Catheter Urinary Catheter Date of Insertion: 10/27/20 Urinary Catheter Time of Insertion: 17:28 Date Urinary Catheter Removed: 10/29/20 Time Urinary Catheter Discontinued: 06:44 Data : 10/29/20 04:04 10/29/20 04:04 Micro: Microbiology 10/29/20 11:54 Blood Culture - Preliminary Blood SPECIMEN COLLECTED 10/29/20 11:50 Blood Culture - Preliminary Blood SPECIMEN COLLECTED A&P Assessment and plan (1) Fracture of hip: -Acute comminuted fracture of the left femoral neck status post intramedullary nail of left hip postop 1 -Anticoagulation currently Xarelto -SCDs -Postoperatively confused some component related to dementia, anesthesia, pain medication -Pain control with morphine -Orthopedic surgery on consult -PT OT -Will require half-way placement Status: Acute (2) Dementia with behavioral disturbance: -He is much more confused this morning, his antibiotics for UTI -We will redraw urine cultures, blood cultures, UA, pro-Michael, CT of the head Status: Acute (3) UTI (urinary tract infection): Rocephin Status: Acute (4) Acute kidney injury: Gentle IV hydration Status: Acute (5) GERD (gastroesophageal reflux disease): Status: Acute (6) A-fib: -Continue metoprolol - telemetry monitoring -Hold Xarelto Status: Acute (7) KRISTIN (obstructive sleep apnea): Will start CPAP Status: Acute (8) History of CVA (cerebrovascular accident): Brain: There are moderate periventricular and subcortical lucencies consistent with chronic microvascular ischemic changes. Cerebral ventricles: No ventriculomegaly. Bones/joints: Right frontotemporal craniotomy . 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 Paranasal sinuses: Visualized sinuses are unremarkable. No fluid levels. Mastoid air cells: Visualized mastoid air cells are well aerated. Orbital cavity: Bilateral cataract surgery. Soft tissues: Unremarkable. Status: Inactive (9) History of pulmonary embolism: -Has finished Xarelto therapy Status: Inactive (10) Chest pain: -Atypical chest pain -Initial EKG shows sinus tachycardia, no acute ST-T wave changes -Serial troponins, no significant delta troponin -Telemetry monitoring - echocardiogram pending -Stress test as outpatient Status: Acute Attestations Medical Necessity Statement*: Patient requires hospitalization for fracture, required half-way placement, worsening confusion Coding Level of Care Code Acute Analytical Scientist for Chg Fwd Diagnoses Fracture of hip S72.009A Dementia with behavioral disturbance F03.91 UTI (urinary tract infection) N39.0 Acute kidney injury N17.9 GERD (gastroesophageal reflux disease) K21.9 A-fib I48.91 KRISTIN (obstructive sleep apnea) G47.33 History of CVA (cerebrovascular accident) Z86.73 History of pulmonary embolism Z86.711 Chest pain R07.9
[2020-10-29 18:38] LABS: Add Urine Microscopic? YES; Bilirubin Urine Neg (Negative); Blood Urine 2+ (Negative); Glucose Urine UA Norm (Normal); Ketones Urine Negative (Negative); Leukocyte Esterase Urine Negative (Negative); Nitrate Urine Negative (Negative); Protein Urine Neg (Negative); Urine Appearance Clear (CLEAR); Urine Color Yellow (Yellow); Urobilinogen Urine Norm (Negative); pH Urine 5 (5-7)
[2020-10-29 18:39] LABS: Add Urine Culture? No; Bacteria Urine 1+ /hpf; RBC Urine 0-4 /hpf (0-2); WBC Urine 0-4 /hpf (0-5)
[2020-10-29] MEDS: cefTRIAXone 1,000 MG in sodium chloride 0.9% (plus) 50 ML 100 MG IV (21:49)
[2020-10-30] VITALS (12 sets, daily range): BP systolic 115–146; BP diastolic 61–81; PULSE 70–99; RESP 16–92; TEMP 36.5–37.3; O2SAT 90–99
[2020-10-30 05:13] LABS: Basophils # 0.1 10^3/uL (0.0-0.1); Basophils % 0.5 %; Eosinophils # 0.4 10^3/uL (0.0-0.8); Eosinophils % 3.8 %; Hematocrit 28.8 % (37.0-47.0); Lymphocytes # 1.7 10^3/uL (0.8-4.8); Mean Corpuscular HGB Conc 31.3 g/dL (30.0-36.0); Mean Corpuscular Hemoglobin 28.7 pg (28.0-34.0); Mean Corpuscular Volume 91.7 fL (81-99); Mean Platelet Volume 9.8 fL (7.4-10.4); Monocytes # 0.7 10^3/uL (0.2-0.9); Neutrophils % 69.3 %; Nucleated Red Blood Cells % 0 %; Platelet Count 181 10^3/cmm (130-400); Red Blood Count 3.14 10^6/uL (4.1-5.3); Red Cell Distribution Width 13.3 % (12.1-15.1); White Blood Count 9.2 10^3/uL (4.0-10.0)
[2020-10-30] MEDS: sodium chloride 0.9% 1,000 ML 75 ML IV (05:20)
[2020-10-30 05:38] LABS: Alanine Aminotransferase 10 U/L (0-33); Albumin Level 3.3 g/dL (3.5-5.2); Alkaline Phosphatase 71 IU/L (35-105); Aspartate Amino Transferase 21 U/L (0-32); Blood Urea Nitrogen 16 mg/dL (8-23); Calcium 8.5 mg/dL (8.5-10.5); Carbon Dioxide 24 mmol/L (22-29); Chloride 109 mmol/L (98-107); Globulin 2.6 g/dL (1.3-4.6); Glucose 95 mg/dL (65-115); Magnesium 1.8 mg/dL (1.7-2.3); Osmolality Calculated 295 mOsm/kg (285-295); Phosphorus 2.2 mg/dL (2.5-4.5); Sodium 142 mmol/L (136-145); Total Bilirubin 0.4 mg/dL (0.15-1.2); Total Protein 5.9 g/dL (6.6-8.7)
[2020-10-30] MEDS: pantoprazole DR 40 mg Tablet PO (05:40)
[2020-10-30] MEDS: levothyroxine 25 mcg Tablet PO (05:40)
[2020-10-30 05:41] LABS: Anion Gap 12.6 (5-19); Potassium 3.6 mmol/L (3.5-5.1)
[2020-10-30 05:48] LABS: INR 1.66 (0.8-1.2)
--- NOTE | 2020-10-30 06:00 | USCV_ITS ---
Hilary Moreno Age: 70 Gender: F : 1950 Exam Date: 10/30/2020 09:01 Ordering Phys: Darshan Wade MD Technologist: Tanvi Rothman Exam Location: [facility] [place] Indication: CHEST PAIN BP: 146 / 75 HR: 94 Rhythm: Sinus Technical Quality: Fair MEASUREMENTS (Male / Female) Normal Values 2D ECHO LV Diastolic Diameter PLAX 3.8 cm 4.2 - 5.9 / 3.9 - 5.3 cm LV Systolic Diameter PLAX 2.2 cm LV Chamber Size 3.5 cm IVS Diastolic Thickness 1.4 cm 0.6 - 1.0 / 0.6 - 0.9 cm IVS Systolic Thickness 1.8 cm LVPW Diastolic Thickness 0.9 cm 0.6 - 1.0 / 0.6 - 0.9 cm LVPW Systolic Thickness 1.2 cm RV Chamber Size 1.8 cm LVOT Diameter 2.0 cm LV Ejection Fraction 2D Teich 74.0 % LV Ejection Fraction MOD 2C 52.4 % LV Ejection Fraction 2C AL 52.4 % LA Diameter 2.7 cm LA Width 2.7 cm LA Height 4.7 cm RA Width 2.4 cm RA Height 4.3 cm Aorta at Sinotubular Diameter 2.3 cm M-MODE LV Diastolic Diameter MM 4.1 cm 4.2 - 5.9 / 3.9 - 5.3 cm LV Systolic Diameter MM 2.5 cm LV Ejection Fraction MM Teich 69.4 % IVS Diastolic Thickness MM 1.1 cm 0.6 - 1.0 / 0.6 - 0.9 cm IVS Systolic Thickness MM 1.3 cm LVPW Diastolic Thickness MM 1.1 cm 0.6 - 1.0 / 0.6 - 0.9 cm LVPW Systolic Thickness MM 1.6 cm RV Diastolic Diameter MM 1.3 cm Aortic Annulus Diameter 2.8 cm LA Ao Ratio MM 1.1 MV E Point Septal Separation 0.6 cm DOPPLER AV Peak Velocity 111.0 cm/s LVOT Peak Velocity 81.0 cm/s AV Area Cont Eq vti 2.1 cm squared AV Area Cont Eq pk 2.4 cm squared MV Area PHT 4.2 cm squared Mitral E to A Ratio 0.9 MV E' Velocity 34.0 cm/s Mitral E to MV E' Ratio 6.1 Mitral E to LV E' Lateral Ratio 5.3 Mitral E to LV E' Septal Ratio 7.3 TR Peak Velocity 296.5 cm/s TR Peak Gradient 35.2 mmHg TV Peak E Velocity 46.0 cm/s Right Atrial Pressure 3.0 mmHg Pulmonary Artery Systolic Pressu 38.2 mmHg PV Peak Velocity 76.0 cm/s RV Acceleration Time 0.1 s RV Ejection Time 0.3 s RV AcT/ET 0.3 FINDINGS Left Ventricle Normal left ventricular size and systolic function with no regional wall motion abnormalities. LVEF is 60 to 65%. Normal diastolic filling pattern. Right Ventricle The right ventricle is normal in size and function. Right Atrium The right atrium is normal in size. Left Atrium The left atrium is normal in size. Mitral Valve Structurally normal mitral valve without significant stenosis or prolapse. There is no mitral regurgitation. Aortic Valve Structurally normal aortic valve without significant sclerosis or stenosis. There is mild to moderate aortic regurgitation. Tricuspid Valve Structurally normal tricuspid valve without significant stenosis. There is mild to moderate tricuspid regurgitation. RVSP is 35 to 40 mmHg. Mild pulmonary hypertension is noted. Pulmonic Valve Structurally normal pulmonic valve without significant stenosis. There is trace pulmonic regurgitation. Pericardium Normal pericardium without effusion. Aorta Normal ascending aorta dimension. CONCLUSIONS LV systolic function is normal with EF of 60 to 65%. Normal diastolic function. There is mild to moderate aortic regurgitation. There is mild to moderate tricuspid regurgitation. Mild pulmonary hypertension is noted. No comparison studies are available. Joon Almeida MD (Electronically Signed) Final Date: 30 October 2020 10:55 S
[2020-10-30] MEDS: doxycycline 100 mg Tablet PO ×2 (08:09→21:16)
[2020-10-30] MEDS: metoprolol succinate ER (24 HR) 25 mg Tablet PO (08:09)
[2020-10-30] MEDS: rivaroxaban 10 mg Tablet 20 MG PO (08:10)
[2020-10-30] MEDS: quetiapine 25 mg Tablet 50 MG PO ×2 (08:10→21:15)
[2020-10-30] MEDS: citalopram 20 mg Tablet 40 MG PO (08:10)
[2020-10-30] MEDS: fluticasone nasal spray 16gm Btl 2 SPRAY INTRANASAL (08:14)
--- NOTE | 2020-10-30 09:55 | P.PN_ITS ---
Subjective Subjective: Interval history: Patient is resting comfortably. Vitals/I&O/Wt Last Vital Signs Temp 99.1 F 10/30/20 07:15 Pulse 98 10/30/20 07:15 Resp 17 10/30/20 07:15 BP 146/75 10/30/20 07:15 Pulse Ox 98 10/30/20 07:15 10/29/20 10/30/20 10/30/20 22:59 06:59 14:59 Intake Total 120 / 1600 60 / 1660 Balance 120 / 1600 60 / 1660 Physical Exam Narrative: EXAM NARRATIVE: Patient is resting comfortably dressing is intact. Urinary Catheter Management^: Gar: Cath Placed During This Visit: yes, but has since been removed by the nurse Reason for Continuing Indwelling Catheter: Acute Urinary Retention or Obstruction Urinary Catheter Date of Insertion: 10/30/20 Urinary Catheter Time of Insertion: 04:18 Date Urinary Catheter Removed: 10/29/20 Time Urinary Catheter Discontinued: 06:44 Data : 10/30/20 04:33 10/30/20 04:33 Micro: Microbiology 10/29/20 11:50 Blood Culture - Preliminary Blood 10/29/20 11:54 Blood Culture - Preliminary Blood SPECIMEN COLLECTED A&P Additional A&P Information Patient is postop day #2 of left intramedullary hip nail. Attestations Medical Necessity Statement*: ok to d/c from ortho standpoint Coding Level of Care Code Acute Kitchen Mechanic for Edith Bailon
--- NOTE | 2020-10-30 10:05 | PC.SOCIAL ---
IMM Page 2 of IMM given to patient, however she seems confused. Will attempt to explain IMM with family by phone.
--- NOTE | 2020-10-30 13:35 | PM.PN ---
Subjective Subjective: Interval history: This morning patient was examined, she follows commands, but has confusion, likely related to underlying dementia, afebrile overnight, no complaints of pain Vitals/I&O/Wt Last Vital Signs Temp 99.1 F 10/30/20 07:15 Pulse 98 10/30/20 07:15 Resp 17 10/30/20 07:15 BP 146/75 10/30/20 07:15 Pulse Ox 98 10/30/20 07:15 10/29/20 10/30/20 10/30/20 22:59 06:59 14:59 Intake Total 120 / 1600 60 / 1660 Balance 120 / 1600 60 / 1660 Physical Exam Const: COMMON NORMALS: no acute distress and alert GENERAL APPEARANCE: cooperative and comfortable ORIENTATION/CONSCIOUSNESS: Yes awake, Yes oriented to person and Yes confused; not oriented to place and not oriented to time HENMT: COMMON NORMALS: normocephalic HEAD & SCALP: normocephalic Neck/C-Spine: COMMON NORMALS: no JVD Resp: COMMON NORMALS: normal respiratory effort, No retractions, No use of accessory muscles and clear to auscultation bilaterally AUSCULTATION: clear to auscultation bilaterally Cardio: COMMON NORMALS: no JVD, regular rate, regular rhythm, S1 normal heart sound present and S2 normal heart sound present RATE: regular rate RHYTHM: regular rhythm HEART SOUNDS: S1 normal heart sound present and S2 normal heart sound present GI: COMMON NORMALS: Normal to inspection, nondistended, normoactive bowel sounds present, Soft to palpation, non-tender, No hepatosplenomegaly present, no masses and no bruits PALPATION: Yes Soft to palpation and Yes No hepatosplenomegaly present Extremity: COMMON NORMALS: capillary refill normal, no clubbing, cyanosis or edema, no calf tenderness and no pedal edema Neuro: COMMON NORMALS: CN's II-XII intact bilaterally, moves all extremities and no focal motor deficits SENSORIUM/ORIENTATION: Yes alert, Yes oriented to person, No oriented to place and No oriented to time Psych: COMMON NORMALS: mental status grossly normal Urinary Catheter Management^: Gar: Cath Placed During This Visit: yes, but has since been removed by the nurse Reason for Continuing Indwelling Catheter: Acute Urinary Retention or Obstruction Urinary Catheter Date of Insertion: 10/30/20 Urinary Catheter Time of Insertion: 04:18 Date Urinary Catheter Removed: 10/29/20 Time Urinary Catheter Discontinued: 06:44 Data : 10/30/20 04:33 10/30/20 04:33 Micro: Microbiology 10/29/20 11:54 Blood Culture - Preliminary Blood NEGATIVE TO DATE 10/29/20 11:50 Blood Culture - Preliminary Blood A&P Assessment and plan (1) Fracture of hip: -Acute comminuted fracture of the left femoral neck status post intramedullary nail of left hip postop 1 -Anticoagulation currently Xarelto -Postoperative anemia, hemoglobin 9.0, will continue to monitor -SCDs -Postoperatively confused some component related to dementia, anesthesia, pain medication -Pain control with morphine -Orthopedic surgery on consult -PT OT -Will require fpc placement Status: Acute (2) Dementia with behavioral disturbance: -Her confusion is about at baseline, no sudden changes, has significant dementia -Culture so far negative -Chest x-ray negative for focal pneumonia -Head CT no acute stroke Status: Acute (3) UTI (urinary tract infection): Rocephin Status: Acute (4) Acute kidney injury: Gentle IV hydration Status: Acute (5) GERD (gastroesophageal reflux disease): Status: Acute (6) A-fib: -Continue metoprolol - telemetry monitoring -Hold Xarelto Status: Acute (7) KRISTIN (obstructive sleep apnea): Will start CPAP Status: Acute (8) History of CVA (cerebrovascular accident): Brain: There are moderate periventricular and subcortical lucencies consistent with chronic microvascular ischemic changes. Cerebral ventricles: No ventriculomegaly. Bones/joints: Right frontotemporal craniotomy . 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 Paranasal sinuses: Visualized sinuses are unremarkable. No fluid levels. Mastoid air cells: Visualized mastoid air cells are well aerated. Orbital cavity: Bilateral cataract surgery. Soft tissues: Unremarkable. Status: Inactive (9) History of pulmonary embolism: -Has finished Xarelto therapy Status: Inactive (10) Chest pain: -Atypical chest pain -Initial EKG shows sinus tachycardia, no acute ST-T wave changes -Serial troponins, no significant delta troponin -Telemetry monitoring - echocardiogram LV systolic function is normal with EF of 60 to 65%. Normal diastolic function. There is mild to moderate aortic regurgitation. There is mild to moderate tricuspid regurgitation. Mild pulmonary hypertension is noted. No comparison studies are available. -Stress test as outpatient, if desired butlikely medical management given severe dementia Status: Acute Attestations Medical Necessity Statement*: Patient requires hospitalization for hip fracture, requiring fpc placement, anemia postoperatively, UTI Coding Level of Care Code Acute Wire Spring Relay Adjuster for Chg Fwd Diagnoses Fracture of hip S72.009A Dementia with behavioral disturbance F03.91 UTI (urinary tract infection) N39.0 Acute kidney injury N17.9 GERD (gastroesophageal reflux disease) K21.9 A-fib I48.91 KRISTIN (obstructive sleep apnea) G47.33 History of CVA (cerebrovascular accident) Z86.73 History of pulmonary embolism Z86.711 Chest pain R07.9
--- NOTE | 2020-10-30 14:16 | PC.OT ---
Patient declined occupational therapy on this date, stating she couldn't do it. She refused to open her eyes when responding and asked to be left alone.
--- NOTE | 2020-10-30 15:54 | PC.NURSE ---
THIS NURSE NOTIFIED DR ROTHMAN DUE TO PT HAVING ABDOMINAL PAIN TENDER TO TOUCH TO ABDOMEN JUST ABOVE THE NAVEL. SHE IS BLOATED WITH NO BM SINCE AT LEAST THE . DR ROTHMAN ORDERED FOR COLACE 100 MG BID START NOW, MIRALAX 17MG DAILY.
[2020-10-30] MEDS: docusate sodium 100 mg Capsule PO (17:55)
[2020-10-30] MEDS: morphine 4 mg/mL SDV 1 mL 2 MG IVP (18:10)
[2020-10-30] MEDS: cefTRIAXone 1,000 MG in sodium chloride 0.9% (plus) 50 ML 100 MG IV (21:16)
[2020-10-31] VITALS (12 sets, daily range): BP systolic 119–131; BP diastolic 57–76; PULSE 80–105; RESP 16–87; TEMP 36.6–37.4; O2SAT 92–97
--- NOTE | 2020-10-31 01:04 | PC.NURSE ---
O2 SAT O2 sat was noted to be at 87% with VS check. RT came up and adjusted CPAP and placed O2 with it. Sat to 92%
[2020-10-31] MEDS: acetaminophen 325 mg Tablet 650 MG PO (03:13)
[2020-10-31 05:25] LABS: Basophils # 0.1 10^3/uL (0.0-0.1); Basophils % 0.6 %; Eosinophils # 0.3 10^3/uL (0.0-0.8); Eosinophils % 3.6 %; Hematocrit 26.7 % (37.0-47.0); Hemoglobin 8.2 g/dL (11.5-15.3); Lymphocytes # 1.7 10^3/uL (0.8-4.8); Mean Corpuscular HGB Conc 30.7 g/dL (30.0-36.0); Mean Corpuscular Hemoglobin 28.6 pg (28.0-34.0); Monocytes # 0.7 10^3/uL (0.2-0.9); Monocytes % 8.4 %; Neutrophils # 5.25 10^3/uL (1.8-7.7); Neutrophils % 65.9 %; Nucleated Red Blood Cells % 0 %; Platelet Count 204 10^3/cmm (130-400); Red Blood Count 2.87 10^6/uL (4.1-5.3); Red Cell Distribution Width 13.2 % (12.1-15.1)
[2020-10-31] MEDS: pantoprazole DR 40 mg Tablet PO (05:38)
[2020-10-31] MEDS: levothyroxine 25 mcg Tablet PO (05:38)
[2020-10-31 05:48] LABS: Alanine Aminotransferase 9 U/L (0-33); Albumin Level 2.8 g/dL (3.5-5.2); Alkaline Phosphatase 72 IU/L (35-105); Anion Gap 11.8 (5-19); Aspartate Amino Transferase 15 U/L (0-32); Blood Urea Nitrogen 18 mg/dL (8-23); Calcium 8.5 mg/dL (8.5-10.5); Carbon Dioxide 25 mmol/L (22-29); Chloride 108 mmol/L (98-107); Globulin 2.7 g/dL (1.3-4.6); Glucose 105 mg/dL (65-115); Magnesium 2.1 mg/dL (1.7-2.3); Osmolality Calculated 294 mOsm/kg (285-295); Phosphorus 2.8 mg/dL (2.5-4.5); Potassium 3.8 mmol/L (3.5-5.1); Sodium 141 mmol/L (136-145); Total Bilirubin 0.4 mg/dL (0.15-1.2); Total Protein 5.5 g/dL (6.6-8.7)
--- NOTE | 2020-10-31 06:35 | PC.NURSE ---
SHIFT SUMMARY Has rested well. Quite confused when awake. Only oriented to person tonight. Given Tylenol po X1 for pain per FLACC. Good response noted. Does holler out with pain when moved in bed. Dressing to lat left hip/thigh with some drainage present but not seeping through dressing. Ice pack in place. Has to be encouraged to drink water. NPO since midnight except water for stress test this am. Gar intact and draining montez colored urine
--- NOTE | 2020-10-31 07:09 | PM.PN ---
Subjective Subjective: Interval history: resting comfortably Vitals/I&O/Wt Last Vital Signs Temp 98.1 F 10/31/20 03:23 Pulse 84 10/31/20 05:36 Resp 18 10/31/20 03:23 BP 128/76 10/31/20 03:23 Pulse Ox 96 10/31/20 03:23 10/30/20 10/31/20 10/31/20 22:59 06:59 14:59 Intake Total 110 / 110 555 / 665 Output Total 1000 / 1000 350 / 1350 Balance -890 / -890 205 / -685 Physical Exam Narrative: EXAM NARRATIVE: resting comfortably Urinary Catheter Management^: Gar: Cath Placed During This Visit: yes, but has since been removed by the nurse Reason for Continuing Indwelling Catheter: Acute Urinary Retention or Obstruction Urinary Catheter Date of Insertion: 10/30/20 Urinary Catheter Time of Insertion: 04:18 Date Urinary Catheter Removed: 10/29/20 Time Urinary Catheter Discontinued: 06:44 Data : 10/31/20 04:20 10/31/20 04:20 Micro: Microbiology 10/29/20 11:54 Blood Culture - Preliminary Blood NEGATIVE TO DATE A&P Additional A&P Information POD#3 Left hip nail wbat d/c planning ok to d/c from ortho standpoint Attestations Medical Necessity Statement*: ok to d/c from ortho standpoint Coding Level of Care Code Acute Credit Control Officer for Edith Bailon
--- NOTE | 2020-10-31 07:40 | SUR.PREOP ---
STRESS TEST CANCEL Notified by Floor RN that DR Wade is cancelling today's stress test! Verified. Cancelled as ordered.
[2020-10-31] MEDS: doxycycline 100 mg Tablet PO ×2 (09:27→19:47)
[2020-10-31] MEDS: docusate sodium 100 mg Capsule PO ×2 (09:27→18:05)
[2020-10-31] MEDS: polyethylene glycol 3350 Pkt 17 gm PO (09:28)
[2020-10-31] MEDS: metoprolol succinate ER (24 HR) 25 mg Tablet PO (09:28)
[2020-10-31] MEDS: quetiapine 25 mg Tablet 50 MG PO ×2 (09:28→19:47)
[2020-10-31] MEDS: citalopram 20 mg Tablet 40 MG PO (09:28)
[2020-10-31] MEDS: fluticasone nasal spray 16gm Btl 2 SPRAY INTRANASAL ×2 (09:35→19:47)
[2020-10-31 09:47] LABS: Ferritin 316 ng/mL (15-150); Iron 14 ug/dL (37-145); Total Iron Binding Capacity 154 mcg/dl; Unsaturated Iron Binding 140 ug/dL (112-347)
--- NOTE | 2020-10-31 10:05 | PC.OT ---
Patient agreed to therapy but would not open her eyes or participate. Will attempt later if time.
--- NOTE | 2020-10-31 12:12 | PM.PN ---
Subjective Subjective: Interval history: This morning patient was seen on a nasal CPAP, she does awaken, she does follow some commands, she tells me she is doing okay, but does have episodes of confusion Vitals/I&O/Wt Last Vital Signs Temp 98.1 F 10/31/20 12:00 Pulse 84 10/31/20 12:00 Resp 16 10/31/20 12:00 BP 122/74 10/31/20 12:00 Pulse Ox 97 10/31/20 12:00 10/30/20 10/31/20 10/31/20 22:59 06:59 14:59 Intake Total 110 / 110 555 / 665 120 / 120 Output Total 1000 / 1000 350 / 1350 Balance -890 / -890 205 / -685 120 / 120 Physical Exam Const: COMMON NORMALS: no acute distress and patient oriented x3 HENMT: COMMON NORMALS: normocephalic HEAD & SCALP: normocephalic Neck/C-Spine: COMMON NORMALS: no JVD Resp: COMMON NORMALS: normal respiratory effort, No retractions, No use of accessory muscles and clear to auscultation bilaterally AUSCULTATION: clear to auscultation bilaterally Cardio: COMMON NORMALS: no JVD, regular rate, regular rhythm, S1 normal heart sound present and S2 normal heart sound present RATE: regular rate RHYTHM: regular rhythm HEART SOUNDS: S1 normal heart sound present and S2 normal heart sound present GI: COMMON NORMALS: Normal to inspection, nondistended, normoactive bowel sounds present, Soft to palpation, non-tender, No hepatosplenomegaly present, no masses and no bruits PALPATION: Yes Soft to palpation and Yes No hepatosplenomegaly present Extremity: COMMON NORMALS: capillary refill normal and no calf tenderness NARRATIVE EXTREMITY EXAM: 2+ pitting edema Neuro: COMMON NORMALS: patient oriented x3 Psych: COMMON NORMALS: mental status grossly normal Urinary Catheter Management^: Gar: Cath Placed During This Visit: yes, but has since been removed by the nurse Reason for Continuing Indwelling Catheter: Acute Urinary Retention or Obstruction Urinary Catheter Date of Insertion: 10/30/20 Urinary Catheter Time of Insertion: 04:18 Date Urinary Catheter Removed: 10/29/20 Time Urinary Catheter Discontinued: 06:44 Data : 10/31/20 04:20 10/31/20 04:20 Micro: Microbiology 10/29/20 17:10 Urine Culture - Final Urine Catheterized 10/29/20 11:54 Blood Culture - Preliminary Blood NEGATIVE TO DATE A&P Assessment and plan (1) Fracture of hip: -Acute comminuted fracture of the left femoral neck status post intramedullary nail of left hip postop -Anticoagulation currently Xarelto -Postoperative anemia, hemoglobin 8.2, iron studies, Hemoccult, hold Xarelto -SCDs -Postoperatively confused some component related to dementia, anesthesia, pain medication -Pain control with morphine -Orthopedic surgery on consult -PT OT -Will require [place] [facility] placement Status: Acute (2) Dementia with behavioral disturbance: -Her confusion is about at baseline, no sudden changes, has significant dementia -Culture so far negative -Chest x-ray negative for focal pneumonia -Head CT no acute stroke Status: Acute (3) UTI (urinary tract infection): Urine cultures unremarkable UTI, stop Rocephin Status: Acute (4) Acute kidney injury: Gentle IV hydration Status: Acute (5) GERD (gastroesophageal reflux disease): Status: Acute (6) A-fib: -Continue metoprolol - telemetry monitoring -Hold Xarelto Status: Acute (7) KRISTIN (obstructive sleep apnea): Will start CPAP Status: Acute (8) History of CVA (cerebrovascular accident): Brain: There are moderate periventricular and subcortical lucencies consistent with chronic microvascular ischemic changes. Cerebral ventricles: No ventriculomegaly. Bones/joints: Right frontotemporal craniotomy . 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 Paranasal sinuses: Visualized sinuses are unremarkable. No fluid levels. Mastoid air cells: Visualized mastoid air cells are well aerated. Orbital cavity: Bilateral cataract surgery. Soft tissues: Unremarkable. Status: Inactive (9) History of pulmonary embolism: -Has finished Xarelto therapy Status: Inactive (10) Chest pain: -Atypical chest pain -Initial EKG shows sinus tachycardia, no acute ST-T wave changes -Serial troponins, no significant delta troponin -Telemetry monitoring - echocardiogram LV systolic function is normal with EF of 60 to 65%. Normal diastolic function. There is mild to moderate aortic regurgitation. There is mild to moderate tricuspid regurgitation. Mild pulmonary hypertension is noted. No comparison studies are available. -Stress test as outpatient, if desired butlikely medical management given severe dementia Status: Acute Additional A&P Information For today, monitor hemoglobin, kurtis Dangelo, working on [place] [facility] [place] Attestations Medical Necessity Statement*: Patient requires hospitalization for left hip fracture, now with postoperative pain pneumonia, requiring [place] [facility] placement Coding Level of Care Code Acute Gum Puller for jesus Fwd Diagnoses Fracture of hip S72.009A Dementia with behavioral disturbance F03.91 UTI (urinary tract infection) N39.0 Acute kidney injury N17.9 GERD (gastroesophageal reflux disease) K21.9 A-fib I48.91 KRISTIN (obstructive sleep apnea) G47.33 History of CVA (cerebrovascular accident) Z86.73 History of pulmonary embolism Z86.711 Chest pain R07.9
[2020-10-31 13:36] LABS: Basophils # 0.1 10^3/uL (0.0-0.1); Basophils % 0.7 %; Eosinophils # 0.3 10^3/uL (0.0-0.8); Eosinophils % 4.3 %; Hematocrit 28.1 % (37.0-47.0); Hemoglobin 8.9 g/dL (11.5-15.3); Lymphocytes # 1.3 10^3/uL (0.8-4.8); Lymphocytes % 17.6 %; Mean Corpuscular HGB Conc 31.7 g/dL (30.0-36.0); Mean Corpuscular Hemoglobin 29.3 pg (28.0-34.0); Mean Corpuscular Volume 92.4 fL (81-99); Mean Platelet Volume 9.6 fL (7.4-10.4); Monocytes # 0.6 10^3/uL (0.2-0.9); Monocytes % 7.7 %; Neutrophils # 5.19 10^3/uL (1.8-7.7); Neutrophils % 69.2 %; Nucleated Red Blood Cells % 0 %; Platelet Count 213 10^3/cmm (130-400); Red Blood Count 3.04 10^6/uL (4.1-5.3); Red Cell Distribution Width 13.4 % (12.1-15.1); White Blood Count 7.5 10^3/uL (4.0-10.0)
[2020-11-01] VITALS (7 sets, daily range): BP systolic 94–136; BP diastolic 47–78; PULSE 77–93; RESP 14–18; TEMP 36.6–37.7; O2SAT 92–95
[2020-11-01] MEDS: pantoprazole DR 40 mg Tablet PO (05:29)
[2020-11-01] MEDS: levothyroxine 25 mcg Tablet PO (05:29)
--- NOTE | 2020-11-01 05:30 | PC.NURSE ---
SHIFT SUMMARY Has been awake much of this night. Has been more talkative with nurse and sometimes just talks to herself. Remains quite confused but is cooperative. Has denied pain or need for pain med. Does holler out anytime is moved in bed. Has serosanguinous drainage on dressings to Lat hip/thigh but not coming through. Edema to hip & thigh. Ice pack has remained in place. Gar patent with good urine output. Wears CPAP at night with O2.
--- NOTE | 2020-11-01 07:59 | P.PN_ITS ---
Subjective Subjective: Interval history: resting comfortably Vitals/I&O/Wt Last Vital Signs Temp 99.9 F H 11/01/20 07:24 Pulse 93 11/01/20 07:24 Resp 18 11/01/20 07:24 BP 100/58 11/01/20 07:24 Pulse Ox 93 11/01/20 07:24 10/31/20 11/01/20 11/01/20 22:59 06:59 14:59 Intake Total 75 / 415 120 / 535 Output Total 450 / 450 550 / 1000 Balance -375 / -35 -430 / -465 Physical Exam Narrative: EXAM NARRATIVE: resting comfortably Urinary Catheter Management^: Gar: Cath Placed During This Visit: yes, but has since been removed by the nurse Reason for Continuing Indwelling Catheter: Acute Urinary Retention or Obstruction Urinary Catheter Date of Insertion: 10/30/20 Urinary Catheter Time of Insertion: 04:18 Date Urinary Catheter Removed: 10/29/20 Time Urinary Catheter Discontinued: 06:44 Data : 10/31/20 13:26 10/31/20 04:20 Micro: Microbiology 10/29/20 17:10 Urine Culture - Final Urine Catheterized A&P Additional A&P Information POD#4 let [facility] wbat need jocy out at 2 weeks OK to D/C from ortho standpoint Attestations Medical Necessity Statement*: ok to d/c Coding Level of Care Code 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
[2020-11-01] MEDS: quetiapine 25 mg Tablet 50 MG PO (08:10)
[2020-11-01] MEDS: doxycycline 100 mg Tablet PO (08:10)
[2020-11-01] MEDS: polyethylene glycol 3350 Pkt 17 gm PO (08:10)
[2020-11-01] MEDS: citalopram 20 mg Tablet 40 MG PO (08:10)
[2020-11-01] MEDS: metoprolol succinate ER (24 HR) 25 mg Tablet PO (08:10)
[2020-11-01] MEDS: docusate sodium 100 mg Capsule PO (08:10)
[2020-11-01] MEDS: fluticasone nasal spray 16gm Btl 2 SPRAY INTRANASAL (08:11)
[2020-11-01 08:29] LABS: Basophils % 0.5 %; Eosinophils # 0.3 10^3/uL (0.0-0.8); Eosinophils % 4.4 %; Hematocrit 29.6 % (37.0-47.0); Hemoglobin 9.1 g/dL (11.5-15.3); Lymphocytes # 1.4 10^3/uL (0.8-4.8); Lymphocytes % 18.5 %; Mean Corpuscular HGB Conc 30.7 g/dL (30.0-36.0); Mean Corpuscular Hemoglobin 29.3 pg (28.0-34.0); Mean Corpuscular Volume 95.2 fL (81-99); Mean Platelet Volume 9.6 fL (7.4-10.4); Monocytes # 0.7 10^3/uL (0.2-0.9); Monocytes % 8.9 %; Neutrophils # 5.05 10^3/uL (1.8-7.7); Neutrophils % 67.2 %; Nucleated Red Blood Cells % 0 %; Platelet Count 214 10^3/cmm (130-400); Red Blood Count 3.11 10^6/uL (4.1-5.3); Red Cell Distribution Width 13.3 % (12.1-15.1); White Blood Count 7.5 10^3/uL (4.0-10.0)
[2020-11-01 08:45] LABS: Alanine Aminotransferase 9 U/L (0-33); Albumin Level 2.9 g/dL (3.5-5.2); Alkaline Phosphatase 73 IU/L (35-105); Aspartate Amino Transferase 19 U/L (0-32); Blood Urea Nitrogen 16 mg/dL (8-23); Calcium 8.7 mg/dL (8.5-10.5); Carbon Dioxide 24 mmol/L (22-29); Chloride 108 mmol/L (98-107); Globulin 2.9 g/dL (1.3-4.6); Glucose 101 mg/dL (65-115); Magnesium 1.9 mg/dL (1.7-2.3); Osmolality Calculated 297 mOsm/kg (285-295); Phosphorus 2.9 mg/dL (2.5-4.5); Sodium 143 mmol/L (136-145); Total Bilirubin 0.5 mg/dL (0.15-1.2); Total Protein 5.8 g/dL (6.6-8.7)
[2020-11-01 08:50] LABS: Anion Gap 14.7 (5-19); Potassium 3.7 mmol/L (3.5-5.1)
--- NOTE | 2020-11-01 10:47 | PC.SOCIAL ---
IMM Update Pg. 2 of IMM updated. Initialed, dated, and timed and placed in chart. Copy provided.
--- NOTE | 2020-11-01 11:17 | PM.DCS ---
Discharge Providers Date of Admission: 10/27/20 18:01 Date of Discharge: November 01, 2020 Attending Provider at Admission: Darshan Wade MD Attending Provider at Discharge: Darshan Wade MD Primary Care Provider: Matthew Noel MD Diagnoses at Discharge Discharge Diagnosis (1) Fracture of hip: Status: Acute (2) Dementia with behavioral disturbance: Status: Acute (3) UTI (urinary tract infection): Status: Acute (4) Acute kidney injury: Status: Acute (5) GERD (gastroesophageal reflux disease): Status: Acute (6) A-fib: Status: Acute (7) KRISTIN (obstructive sleep apnea): Status: Acute (8) History of CVA (cerebrovascular accident): Status: Inactive (9) History of pulmonary embolism: Status: Inactive (10) Chest pain: Status: Acute Reason for Visit Reason for Visit: FALL, L HIP PAIN Hospital Course Hospital Course This is a 70-year-old female with a past medical history of atrial fibrillation on Xarelto, history of ventriculoperitoneal shunt, history of stroke, history of pulmonary emboli, dementia, GERD, KRISTIN who presents to [facility] status post fall Patient was admitted for left femoral neck fracture status post intramedullary nail of left hip, by Dr. Esteves, tolerated surgery well, will be discharged to senior living, with follow-up with Dr. Esteves 2 weeks for staple removal. Patient developed postoperative anemia, Xarelto was held, hemoglobin discharge was 9.1. Continue to hold Xarelto as outpatient, for at least a week, if hemoglobin is greater than 10, reinstitute Xarelto. Monitor for signs of bleeding, ambulation and calf exercises in bed. Patient has a history of dementia, she had episodes of delirium here in the hospital which were difficult to differentiate from underlying dementia, CT of the head was negative for any acute stroke, chest x-ray unremarkable focal pneumonia, she did receive antibiotic therapy for urinary tract infection, but urine cultures have been unremarkable. Patient did have chest pain complaints on admission, was a poor historian, EKG no acute ST-T wave changes, serial troponins no significant delta, echo showed EF of 60 to 65%, mild to moderate tricuspid regurg. Medically managed with aspirin, statin, beta-valente. Patient can follow-up with cardiology if she were to have worsening complaints of chest pain, but likely medical management given her severe dementia. Physical Exam Const: COMMON NORMALS: no acute distress GENERAL APPEARANCE: cooperative ORIENTATION/CONSCIOUSNESS: Yes awake, Yes oriented to person and Yes confused; not oriented to place and not oriented to time Neck/C-Spine: COMMON NORMALS: no JVD Resp: COMMON NORMALS: normal respiratory effort and clear to auscultation bilaterally EFFORT & INSPECTION: Yes able to speak in complete sentences AUSCULTATION: clear to auscultation bilaterally Cardio: COMMON NORMALS: no JVD, regular rate, regular rhythm, S1 normal heart sound present and S2 normal heart sound present RATE: regular rate RHYTHM: regular rhythm HEART SOUNDS: S1 normal heart sound present and S2 normal heart sound present GI: COMMON NORMALS: Normal to inspection, nondistended, normoactive bowel sounds present, Soft to palpation, non-tender and No hepatosplenomegaly present PALPATION: Yes Soft to palpation and Yes No hepatosplenomegaly present Extremity: COMMON NORMALS: normal to inspection, full ROM and capillary refill normal Neuro: SENSORIUM/ORIENTATION: Yes oriented to person, No oriented to place and No oriented to time Urinary Catheter Management^: Gar: Cath Placed During This Visit: yes, but has since been removed by the nurse Reason for Continuing Indwelling Catheter: Acute Urinary Retention or Obstruction Urinary Catheter Date of Insertion: 10/30/20 Urinary Catheter Time of Insertion: 04:18 Date Urinary Catheter Removed: 10/29/20 Time Urinary Catheter Discontinued: 06:44 Discharge Data Data Completed and Pending: Completed Studies During Hospitalization Category Date Time Status CT abdomen pelvis wo con [id number] Urge nt Cat Scan 10/27/20 15:[address] head wo con* 7 0450 Stat Cat Scan 10/29/20 09:[address] head wo con* 7 0450 Urgent Cat Scan 10/27/20 15:45 Completed XR cervical spine 3V* [id number] Stat Exams 10/27/20 16:44 Completed XR chest 1V radha ble [id number] Routine Exams 10/29/20 09:52 Completed XR chest 1V radha ble [id number] Urgent Exams 10/27/20 15:45 Completed XR hip LT 2-3V wo /w pel* [id number] Rout ine Exams 10/28/20 Completed XR hip LT 2-3V wo /w pel* [id number] Urge nt Exams 10/27/20 18:56 Completed CV echo complete* [id number] Routine Ultrasound 10/30/20 06:00 Completed Pending at discharge Category Date Time Status Sestamibi Stress Test Request Routi ne Exams 10/27/20 20:34 Stop Req Blood Culture Sta t Lab 10/29/20 11:54 Results Complete Blood Co unt w/Auto AM LABS Lab 11/02/20 04:00 Ordered Comprehensive Met abolic Panel AM LA BS Lab 11/02/20 04:00 Ordered Immunochemical Fe hunter OCB Routine Lab 10/31/20 09:18 Ordered Magnesium AM LABS Lab 11/02/20 04:00 Ordered Phosphorus AM LAB S Lab 11/02/20 04:00 Ordered Labs from last 24 hours 11/01/20 11/01/20 10/31/20 07:58 07:58 13:26 WBC 7.5 7.5 RBC 3.11 L 3.04 L Hgb 9.1 L 8.9 L Hct 29.6 L 28.1 L MCV 95.2 92.4 MCH 29.3 29.3 MCHC 30.7 31.7 RDW 13.3 13.4 Plt Count 214 213 MPV 9.6 9.6 Neut % (Auto) 67.2 69.2 Lymph % (Auto) 18.5 17.6 [place] % (Auto) 8.9 7.7 Eos % (Auto) 4.4 4.3 Baso % (Auto) 0.5 0.7 Neut # (Auto) 5.05 5.19 Lymph # (Auto) 1.4 1.3 [place] # (Auto) 0.7 0.6 Eos # (Auto) 0.3 0.3 Baso # (Auto) 0.0 0.1 Nucleated RBC % (a uto) 0 0 Nucleated RBCs # 0.0 0.0 Sodium 143 Potassium 3.7 Chloride 108 H Carbon Dioxide 24 Anion Gap 14.7 BUN 16 Creatinine 0.7 GFR Calculation Not Reportable Glucose 101 Calculated Osmolal ity 297 H Calcium 8.7 Phosphorus 2.9 Magnesium 1.9 Total Bilirubin 0.5 AST 19 ALT 9 Alkaline Phosphata se 73 Total Protein 5.8 L Albumin 2.9 L Globulin 2.9 Vitals: Last Vital Signs Temp 98.0 F 11/01/20 10:59 Pulse 86 11/01/20 10:59 Resp 18 11/01/20 10:59 BP 94/47 11/01/20 10:59 Pulse Ox 93 11/01/20 10:59 Discharge Plan Discharge Patient Disposition: Xfer SNF Condition: Stable Prescriptions: New aspirin 81 mg tablet,delayed release (DR/EC) 81 mg PO DAILY 30 Days Qty: 30 RF: 0 atorvastatin 40 mg tablet 40 mg PO DAILY 30 Days Qty: 30 RF: 0 Continued metoprolol succinate 25 mg tablet extended release 24 hr 25 mg PO DAILY@08 RF: 0 Advair HFA 115-21 mcg/actuation HFA aerosol inhaler 2 puff INHALATION BID PRN (Reason: sob) Qty: 36 RF: 3 citalopram 40 mg tablet 40 mg PO DAILY@08 RF: 0 levothyroxine [Synthroid] 25 mcg tablet 25 mcg PO DAILY@06 RF: 0 pantoprazole 40 mg tablet,delayed release (DR/EC) 40 mg PO DAILY@06 RF: 0 fluticasone propionate [Allergy Relief (fluticasone)] 50 mcg/actuation spray,suspension 2 spray INTRANASAL BID@, RF: 0 quetiapine 50 mg tablet 50 mg PO BID@, RF: 0 Held Xarelto 20 mg tablet 20 mg PO DAILY@08 RF: 0 Hold Instructions: Resume on 11/08/20. hold for 1 week, recheck cbc, if hgb>10 can restart xarelto Discontinued doxycycline hyclate 100 mg capsule 100 mg PO BID@,20 RF: 0 Discharge Orders: Discharge Order (Routine); Ordered 11/01/20 Ordered By: Darshan Wade Other Ambulatory Orders: Complete Blood Count w/Auto (Routine) Timeframe: 1 Week Location: Determined by Patient Ordered By: Darshan Wade Referrals: Nabil Esteves DO [Physician] - 2 weeks (staple removal) Matthew Noel MD [Primary Care Provider] - Discharge Diet: Usual diet Discharge Activity: Bedrest Activity Restrictions/Additional Instructions: -Monitor hemoglobin, hemoglobin discharge 9.1, Xarelto has been held -Recheck hemoglobin in 1 week, if hemoglobin is greater than 10, reinstitute Xarelto -Monitor for fevers, cough, chills, worsening shortness of breath Discharge Attestations Time Spent in Discharge Care*: less than 30 min Quality Metrics Clinical Quality Measures During this hospital stay, did patient experience: None Coding Level of Care Code Acute Buyer Internship for Chg Fwd Exam Detailed Diagnoses Fracture of hip S72.009A Dementia with behavioral disturbance F03.91 UTI (urinary tract infection) N39.0 Acute kidney injury N17.9 GERD (gastroesophageal reflux disease) K21.9 A-fib I48.91 KRISTIN (obstructive sleep apnea) G47.33 History of CVA (cerebrovascular accident) Z86.73 History of pulmonary embolism Z86.711 Chest pain R07.9
== END 2020-11-01 17:06 | disposition skilled nursing facility (03) | DRG 481 ==
LOC: ER 18:22 → MEDSURG 21:30
PROVIDERS: Orthopaedic Surgery; Admitting Provider Family Medicine; Emergency Provider Family Medicine; PCP Internal Medicine; Visit Provider Family Medicine
PROC: 0QS706Z Reposition Left Upper Femur with Intramedullary Internal Fixation Device, Open Approach (ICD-10-PCS; CPT 27245; principal; 2020-10-28 09:00)
DX: S72.142A Displaced intertrochanteric fracture of left femur, initial encounter for closed fracture (principal); F03.91 Unspecified dementia, unspecified severity, with behavioral disturbance; N39.0 Urinary tract infection, site not specified; N17.9 Acute kidney failure, unspecified; W19.XXXA Unspecified fall, initial encounter; I48.91 Unspecified atrial fibrillation; Z98.2 Presence of cerebrospinal fluid drainage device; Z86.73 Personal history of transient ischemic attack (TIA), and cerebral infarction without residual deficits; Z86.711 Personal history of pulmonary embolism; K21.9 Gastro-esophageal reflux disease without esophagitis; G47.33 Obstructive sleep apnea (adult) (pediatric); K52.9 Noninfective gastroenteritis and colitis, unspecified; Z85.118 Personal history of other malignant neoplasm of bronchus and lung; E05.90 Thyrotoxicosis, unspecified without thyrotoxic crisis or storm; E78.1 Pure hyperglyceridemia; M17.12 Unilateral primary osteoarthritis, left knee; R07.9 Chest pain, unspecified; D64.9 Anemia, unspecified; I07.1 Rheumatic tricuspid insufficiency
CPT/HCPCS: 12345; 36415; 51702; 70450; 71045; 72040; 73502; 74176; 76000; 80053; 81001; 82728; 83540; 83550; 83605; 83735; 83880; 84100; 84145; 84443; 84484; 85025; 85045; 85610; 87040; 87086; 93005; 93306; 94660; 94664; 97110; 97162; 97167; 97530; 97535; 99283; 99291; C1713; J0690; J0696; J1100; J2270; J2370; J2405; J2704; J3010; J3490; J7030; P9047

== ENCOUNTER 2020-12-14 03:22 | Inpatient (IN) | payer MEDICARE, OTHER, SELFPAY ==
[2020-12-14] VITALS (14 sets, daily range): BP systolic 107–160; BP diastolic 50–77; PULSE 60–95; RESP 12–19; TEMP 36.5–36.7; O2SAT 92–99; BMI 26.4
--- NOTE | 2020-12-14 03:34 | CTR_ITS ---
PROCEDURE INFORMATION: Exam: CT Abdomen And Pelvis With Contrast Exam date and time: 12/14/2020 3:41 AM Age: 70 years old Clinical indication: Nausea and vomiting; Prior surgery; Surgery type: Hysterectomy. Hip. ; Patient HX: N/v with abd distention; Additional info: Nausea, vomiting, abdominal distention TECHNIQUE: Imaging protocol: Computed tomography of the abdomen and pelvis with contrast. Radiation optimization: All CT scans at this facility use at least one of these dose optimization techniques: automated exposure control; mA and/or kV adjustment per patient size (includes targeted exams where dose is matched to clinical indication); or iterative reconstruction. Contrast material: OMNI 300; Contrast volume: 95 ml; Contrast route: INTRAVENOUS (IV); COMPARISON: CT abdomen pelvis wo con [id number] 10/27/2020 4:13 PM RADIATION DOSE METRICS: Total DLP (mGy-cm): 770.39 FINDINGS: Tubes, catheters and devices: Interval movement of the tip of the left shunt tube into the left flank; still no fluid collection around it. Mediastinal space: Interval prominent decrease in size of the small hiatal hernia. Liver: Still no apparent liver disease. Gallbladder and bile ducts: Still no calcified gallstones or biliary ductal dilatation. Pancreas: Continued fatty infiltration of the pancreatic head. Still no ductal dilatation. Spleen: Still no splenomegaly. Adrenal glands: Still no adrenal mass. Kidneys and ureters: Continued water density in the 15 mm mass arising from the anterolateral margin of the left mid kidney; much smaller low-density focus now visible in the adjacent cortex. Approximately 12 mm intracortical low-density mass in the posteroinferior left kidney more apparent than before, but too small to characterize. Still no hydronephrosis. Stomach and bowel: Interval disappearance of the prominent rectal feces. Continued marked sigmoid and moderate descending diverticulosis. Air-fluid levels now evident in the right and transverse colon. Interval mild fluid distension of the terminal ileum; adhesion of the terminal ileum to the right pelvic sidewall still conceivable. No obstruction. Appendix: No evidence of appendicitis. Intraperitoneal space: Still no free air. Vasculature: Findings raising the possibility of median arcuate ligament syndrome now evident. Continued atherosclerosis. Still no aortic aneurysm. Lymph nodes: No enlarged nodes. Urinary bladder: Interval appearance of a small amount of gas in the anterior aspect of the nondistended bladder. Reproductive: Hysterectomy again evident. Bones/joints: Interval appearance of the fixation rods in the left proximal femur; only slight callus formation around the comminuted left femoral intertrochanteric fracture. Continued mild degeneration of the right hip joint. Old compression fractures again evident. Continued degeneration of several discs. Old right rib fractures again evident. Soft tissues: Small right inguinal hernia containing fat still present. Interval thick stranding density in the subcutaneous fat lateral to the left proximal femur related to the recent surgery. CT/CT abdomen pelvis w con* [id number] IMPRESSION: 1. Air-fluid levels now evident in the right and transverse colon along with interval mild fluid distension of the terminal ileum such that ileocolitis not excluded. Still no free air. 2. Interval prominent decrease in size of the small hiatal hernia. 3. Interval movement of the tip of the left shunt tube into the left flank, but still no fluid collection around it. 4. Findings raising the possibility of median arcuate ligament syndrome now visible. 5. Interval appearance of gas in the bladder; clinical correlation recommended as to the history of recent catheterization. 6. Interval stabilization of the left femoral fracture. 7. Left renal mass consistent with a simple cyst still present. Other left renal masses too small to characterize now apparent. Other findings detailed above. COMMENTS: Consistent with the [employer]'s Incidental Findings Committee white paper (J Am Miguel Radiol 2018): Any incidental renal lesion less than 1 cm or classified as too small to characterize, or any incidental cystic renal lesion characterized as simple-appearing, is likely benign. No follow-up imaging is recommended for these lesions per consensus recommendations based on imaging criteria. Radiation Dose CTDIVOL = (mGy): DLP = 770.39 (mGy-cm)
--- NOTE | 2020-12-14 03:48 | ED_ITS ---
HPI - Abdominal Pain General: Chief Complaint: Nausea/Vomiting/Diarrhea Stated Complaint: N/V/D Time Seen by Provider: 12/14/20 03:34 PFSH ED PFSH: Medical History A-fib Cataract Cerebral aneurysm Chronic diarrhea GERD (gastroesophageal reflux disease) H/O: lung cancer History of CVA (cerebrovascular accident) History of pulmonary embolism Hyperthyroidism Hypertriglyceridemia KRISTIN (obstructive sleep apnea) Primary osteoarthritis of left knee Surgical History History of esophagogastroduodenoscopy (EGD) 06/14/2014 S/P aneurysm repair X3 S/P appendectomy S/P arterial stent S/P colonoscopy 06/14/2014- REFLUX ESOGAPHAGITIS- GASTRITIS S/P hemorrhoidectomy S/P hysterectomy S/P ventriculoperitoneal shunt 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 hold for 1 week, recheck cbc, if hgb>10 can restart xarelto metoprolol succinate 25 mg tablet extended release 24 hr 25 mg PO DAILY@08 RF: 0 Advair HFA 115-21 mcg/actuation HFA aerosol inhaler 2 puff INHALATION BID PRN (Reason: sob) Qty: 36 RF: 3 hydrocodone-acetaminophen [[place]] 5-325 mg tablet 1 tab PO Q6H PRN (Reason: pain) 30 Days Qty: 60 RF: 0 citalopram 40 mg tablet 40 mg PO DAILY@08 RF: 0 levothyroxine [Synthroid] 25 mcg tablet 25 mcg PO DAILY@06 RF: 0 pantoprazole 40 mg tablet,delayed release (DR/EC) 40 mg PO DAILY@06 RF: 0 fluticasone propionate [Allergy Relief (fluticasone)] 50 mcg/actuation spray,suspension 2 spray INTRANASAL BID@, RF: 0 quetiapine 50 mg tablet 50 mg PO BID@,20 RF: 0 Coding Level of Care Code ED 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
[2020-12-14] MEDS: ondansetron 2 mg/ML SDV 2 mL 4 MG IVP (03:57)
[2020-12-14] MEDS: sodium chloride 0.9% 1,000 ML 999 ML IV (03:57)
[2020-12-14 04:02] LABS: Basophils # 0.1 10^3/uL (0.0-0.1); Basophils % 0.4 %; Eosinophils # 0.2 10^3/uL (0.0-0.8); Eosinophils % 1.5 %; Hematocrit 41.5 % (37.0-47.0); Hemoglobin 12.8 g/dL (11.5-15.3); Lymphocytes # 1.8 10^3/uL (0.8-4.8); Lymphocytes % 12.7 %; Mean Corpuscular HGB Conc 30.8 g/dL (30.0-36.0); Mean Corpuscular Hemoglobin 28.7 pg (28.0-34.0); Mean Platelet Volume 9.1 fL (7.4-10.4); Monocytes # 0.6 10^3/uL (0.2-0.9); Monocytes % 4.5 %; Neutrophils # 11.25 10^3/uL (1.8-7.7); Neutrophils % 80.5 %; Nucleated Red Blood Cells % 0 %; Platelet Count 390 10^3/cmm (130-400); Red Blood Count 4.46 10^6/uL (4.1-5.3); Red Cell Distribution Width 12.7 % (12.1-15.1)
[2020-12-14 04:20] LABS: INR 1.68 (0.8-1.2)
[2020-12-14] MEDS: iohexol 300 mg/mL 100 mL Btl IV (04:23)
[2020-12-14 04:29] LABS: Lactate (Lactic Acid level) 1.4 mmol/L (0.5-2.2)
[2020-12-14 04:32] LABS: Alanine Aminotransferase 7 U/L (0-33); Albumin Level 4.3 g/dL (3.5-5.2); Alkaline Phosphatase 161 IU/L (35-105); Aspartate Amino Transferase 10 U/L (0-32); Blood Urea Nitrogen 13 mg/dL (8-23); Carbon Dioxide 26 mmol/L (22-29); Chloride 104 mmol/L (98-107); Globulin 3.9 g/dL (1.3-4.6); Glucose 106 mg/dL (65-115); Lipase 16 U/L (13-60); Magnesium 1.8 mg/dL (1.7-2.3); Osmolality Calculated 295 mOsm/kg (285-295); Sodium 142 mmol/L (136-145); Total Bilirubin 0.3 mg/dL (0.15-1.2); Total Protein 8.2 g/dL (6.6-8.7)
[2020-12-14 04:37] LABS: Anion Gap 15.4 (5-19); Potassium 3.4 mmol/L (3.5-5.1)
--- NOTE | 2020-12-14 05:03 | W.ED.ABDPA2 ---
HPI - Abdominal Pain General: Chief Complaint: Nausea/Vomiting/Diarrhea Stated Complaint: N/V/D Time Seen by Provider: 12/14/20 03:34 Source: patient, EMS and other (long term staff) Mode of arrival: EMS History of Present Illness: HPI narrative: 70-year-old female, [facility] resident, brought in by EMS after she woke up at 3 AM and proceeded to vomit -[facility] staff were concerned that her emesis was feculent. She was not complaining of abdominal pain. She has not been ill with fever or GI symptoms recently. She did undergo surgery for hip fracture 10/28/2020, and has been at rehab since then. She has dementia and is unable to provide a meaningful HPI. MD elicited complaint: abdominal pain Onset (ago): minute(s) Review of Systems General: Reports: ROS unobtainable due to mental status PFSH ED PFSH: Medical History A-fib Acute CVA (cerebrovascular accident) Cataract Cerebral aneurysm Chronic diarrhea Cognitive decline Dementia with behavioral disturbance GERD (gastroesophageal reflux disease) H/O: lung cancer History of CVA (cerebrovascular accident) History of pulmonary embolism Hyperthyroidism Hypertriglyceridemia KRISTIN (obstructive sleep apnea) Primary osteoarthritis of left knee Vomiting alone Surgical History History of esophagogastroduodenoscopy (EGD) 06/14/2014 S/P aneurysm repair X3 S/P appendectomy S/P arterial stent S/P colonoscopy 06/14/2014- REFLUX ESOGAPHAGITIS- GASTRITIS S/P hemorrhoidectomy S/P hysterectomy S/P ventriculoperitoneal shunt S/P MAINTENANCE TEAM LEADER shunt Social History Smoking and tobacco status: never smoked Alcohol intake: never Household members: spouse Housing: House Marital status: History of recent travel: No Physical Exam Const: COMMON NORMALS: average body habitus and alert EXAM LIMITATIONS: other limitations (Dementia) GENERAL APPEARANCE: anxious, ill appearing and frail appearing; not in distress ORIENTATION/CONSCIOUSNESS: Yes oriented to person HENMT: COMMON NORMALS: normocephalic HEAD & SCALP: normocephalic FACE & SINUS: normal facial exam and face symmetric Eye: COMMON NORMALS: Equal, round and reactive pupils present and EOMs intact bilaterally ALIGNMENT: Yes alignment normal SCLERA: scleral abnormal (Mild conjunctival injection bilaterally) PUPIL: Yes Equal, round and reactive pupils present Chest: Breast/axilla inspection: Yes no chest deformity, asymmetry, normal contours, no nodules, masses, tenderness Resp: COMMON NORMALS: normal respiratory effort EFFORT & INSPECTION: No abnormal respiratory pattern, No tachypneic and No respiratory distress Cardio: COMMON NORMALS: regular rate and regular rhythm RATE: regular rate RHYTHM: regular rhythm GI: INSPECTION: Yes normal to inspection and No Fluid wave present AUSCULTATION: Yes Absent bowel sounds PALPATION: Yes Firmness to palpation present (GI), Yes Tenderness to palpation present (GI) Details: RLQ, No Guarding due to palpation present (GI), No Pulsatile mass present and No Ascites present PERCUSSION: no fluid wave Extremity: COMMON NORMALS: normal to inspection and no clubbing, cyanosis or edema Neuro: COMMON NORMALS: moves all extremities SENSORIUM/ORIENTATION: Yes alert, Yes oriented to person and Yes Orientation impaired GAIT: Yes Unable to assess gait MOTOR EXAM: no asterixis, Motor fasciculations not present, Motor abnormalities not present, No Tremors during motor activity present, No Asterixis during motor activity present and No Motor fasciculations present Skin: COMMON NORMALS: no rashes or lesions noted GENERAL SKIN EXAM: no rashes or lesions noted, elasticity normal, no ecchymo, no erythema, no excoriation(s) and no jaundice Course Vital Signs: Vital signs: Vital Signs Temperature 97.9 F 12/16/20 18:05 Pulse Rate 78 12/16/20 18:05 Respiratory Rate 16 12/16/20 18:05 Blood Pressure 152/72 12/16/20 18:05 Pulse Oximetry 96 12/16/20 18:05 MDM - Abdominal Pain MDM Narrative: Medical decision making narrative: 70-year-old female with abdominal tenderness, vomiting. Differential diagnosis; small bowel obstruction, colitis, gastroenteritis, ischemic colitis, UTI, WBC count elevated, otherwise CBC stable. Lactic acid 1.4, mild alk phos elevation, normal liver function. Elevated CRP- 21 No indication of active infection on UA. CT abdomen pelvis; findings suggestive of ileocolitis without any free air. Possible median arcuate ligament syndrome, Zosyn started. IV fluid, symptomatic control, Discussed the case with Dr. Gonzalez, hospitalist, she accepts admission for further evaluation and treatment. Medical Records: Attestation: I reviewed the patient's medical records. Lab Data: Attestation: I reviewed the patient's lab results. Labs: Lab Results 12/14/20 12/14/20 12/14/20 Range/Units 03:46 03:50 03:50 WBC 14.0 H (4.0-10.0) 10^3/ uL RBC 4.46 (4.1-5.3) 10^6/u L Hgb 12.8 (11.5-15.3) g/dL Hct 41.5 (37.0-47.0) % MCV 93.0 (81-99) fL MCH 28.7 (28.0-34.0) pg MCHC 30.8 (30.0-36.0) g/dL RDW 12.7 (12.1-15.1) % Plt Count 390 (130-400) 10^3/c mm MPV 9.1 (7.4-10.4) fL Neut % (Auto) 80.5 % Lymph % (Auto) 12.7 % Tompkins % (Auto) 4.5 % Eos % (Auto) 1.5 % Baso % (Auto) 0.4 % Neut # (Auto) 11.25 H (1.8-7.7) 10^3/u L Lymph # (Auto) 1.8 (0.8-4.8) 10^3/u L Tompkins # (Auto) 0.6 (0.2-0.9) 10^3/u L Eos # (Auto) 0.2 (0.0-0.8) 10^3/u L Baso # (Auto) 0.1 (0.0-0.1) 10^3/u L Nucleated RBC % (a uto) 0 % Nucleated RBCs # 0.0 /100WBC PT 20.30 H (12.1-14.9) SECO NDS INR 1.68 H (0.8-1.2) Sodium (136-145) mmol/L Potassium (3.5-5.1) mmol/L Chloride (98-107) mmol/L Carbon Dioxide (22-29) mmol/L Anion Gap (5-19) BUN (8-23) mg/dL Creatinine (0.5-0.9) mg/dL GFR Calculation Glucose (65-115) mg/dL Calculated Osmolal ity (285-295) mOsm/k g Lactate (0.5-2.2) mmol/L Calcium (8.5-10.5) mg/dL Phosphorus (2.5-4.5) mg/dL Magnesium (1.7-2.3) mg/dL Iron (37-145) ug/dL TIBC mcg/dl % Saturation (20-50) % Unsat Iron Binding (112-347) ug/dL Total Bilirubin (0.15-1.2) mg/dL AST (0-32) U/L ALT (0-33) U/L Alkaline Phosphata se (35-105) IU/L C-Reactive Protein (0.0-4.9) mg/L NT-Pro-B Natriuret Pep (0-125) pg/mL Total Protein (6.6-8.7) g/dL Albumin (3.5-5.2) g/dL Globulin (1.3-4.6) g/dL Lipase (13-60) U/L Procalcitonin (0-0.5) ng/mL TSH (0.27-4.20) uIU/ mL Urine Color Yellow (Yellow) Urine Appearance Hazy A (CLEAR) Urine pH 5 (5-7) Ur Specific Gravit y 1.015 (1.005-1.030) Urine Protein Neg (Negative) Urine Glucose (UA) Norm (Normal) Urine Ketones 1+ H (Negative) Urine Blood Neg (Negative) Urine Nitrate Negative (Negative) Urine Bilirubin Neg (Negative) Urine Urobilinogen Norm (Negative) mg/dL Ur Leukocyte Laila ase Negative (Negative) Urine RBC 0-4 H (0-2) /hpf Urine WBC None (0-5) /hpf Ur Squamous Epith Cells 25-40 H (0-5) /hpf Amorphous Sediment Not Reportable Urine Bacteria Trace (NONE) /hpf 12/14/20 12/14/20 12/14/20 Range/Units 03:50 03:50 03:50 WBC (4.0-10.0) 10^3/ uL RBC (4.1-5.3) 10^6/u L Hgb (11.5-15.3) g/dL Hct (37.0-47.0) % MCV (81-99) fL MCH (28.0-34.0) pg MCHC (30.0-36.0) g/dL RDW (12.1-15.1) % Plt Count (130-400) 10^3/c mm MPV (7.4-10.4) fL Neut % (Auto) % Lymph % (Auto) % Tompkins % (Auto) % Eos % (Auto) % Baso % (Auto) % Neut # (Auto) (1.8-7.7) 10^3/u L Lymph # (Auto) (0.8-4.8) 10^3/u L Tompkins # (Auto) (0.2-0.9) 10^3/u L Eos # (Auto) (0.0-0.8) 10^3/u L Baso # (Auto) (0.0-0.1) 10^3/u L Nucleated RBC % (a uto) % Nucleated RBCs # /100WBC PT (12.1-14.9) SECO NDS INR (0.8-1.2) Sodium 142 (136-145) mmol/L Potassium 3.4 L (3.5-5.1) mmol/L Chloride 104 (98-107) mmol/L Carbon Dioxide 26 (22-29) mmol/L Anion Gap 15.4 (5-19) BUN 13 (8-23) mg/dL Creatinine 0.8 (0.5-0.9) mg/dL GFR Calculation Not Reportable Glucose 106 (65-115) mg/dL Calculated Osmolal ity 295 (285-295) mOsm/k g Lactate 1.4 (0.5-2.2) mmol/L Calcium 10.0 (8.5-10.5) mg/dL Phosphorus 3.4 (2.5-4.5) mg/dL Magnesium 1.8 1.8 (1.7-2.3) mg/dL Iron 29 L (37-145) ug/dL TIBC 234 mcg/dl % Saturation 12.3 L (20-50) % Unsat Iron Binding 205 (112-347) ug/dL Total Bilirubin 0.3 (0.15-1.2) mg/dL AST 10 (0-32) U/L ALT 7 (0-33) U/L Alkaline Phosphata se 161 H (35-105) IU/L C-Reactive Protein 21.0 H (0.0-4.9) mg/L NT-Pro-B Natriuret Pep 645 H (0-125) pg/mL Total Protein 8.2 (6.6-8.7) g/dL Albumin 4.3 (3.5-5.2) g/dL Globulin 3.9 (1.3-4.6) g/dL Lipase 16 (13-60) U/L Procalcitonin 0.05 (0-0.5) ng/mL TSH (0.27-4.20) uIU/ mL Urine Color (Yellow) Urine Appearance (CLEAR) Urine pH (5-7) Ur Specific Gravit y (1.005-1.030) Urine Protein (Negative) Urine Glucose (UA) (Normal) Urine Ketones (Negative) Urine Blood (Negative) Urine Nitrate (Negative) Urine Bilirubin (Negative) Urine Urobilinogen (Negative) mg/dL Ur Leukocyte Laila ase (Negative) Urine RBC (0-2) /hpf Urine WBC (0-5) /hpf Ur Squamous Epith Cells (0-5) /hpf Amorphous Sediment Urine Bacteria (NONE) /hpf 12/14/20 Range/Units 03:50 WBC (4.0-10.0) 10^3/ uL RBC (4.1-5.3) 10^6/u L Hgb (11.5-15.3) g/dL Hct (37.0-47.0) % MCV (81-99) fL MCH (28.0-34.0) pg MCHC (30.0-36.0) g/dL RDW (12.1-15.1) % Plt Count (130-400) 10^3/c mm MPV (7.4-10.4) fL Neut % (Auto) % Lymph % (Auto) % Tompkins % (Auto) % Eos % (Auto) % Baso % (Auto) % Neut # (Auto) (1.8-7.7) 10^3/u L Lymph # (Auto) (0.8-4.8) 10^3/u L Tompkins # (Auto) (0.2-0.9) 10^3/u L Eos # (Auto) (0.0-0.8) 10^3/u L Baso # (Auto) (0.0-0.1) 10^3/u L Nucleated RBC % (a uto) % Nucleated RBCs # /100WBC PT (12.1-14.9) SECO NDS INR (0.8-1.2) Sodium (136-145) mmol/L Potassium (3.5-5.1) mmol/L Chloride (98-107) mmol/L Carbon Dioxide (22-29) mmol/L Anion Gap (5-19) BUN (8-23) mg/dL Creatinine (0.5-0.9) mg/dL GFR Calculation Glucose (65-115) mg/dL Calculated Osmolal ity (285-295) mOsm/k g Lactate (0.5-2.2) mmol/L Calcium (8.5-10.5) mg/dL Phosphorus (2.5-4.5) mg/dL Magnesium (1.7-2.3) mg/dL Iron (37-145) ug/dL TIBC mcg/dl % Saturation (20-50) % Unsat Iron Binding (112-347) ug/dL Total Bilirubin (0.15-1.2) mg/dL AST (0-32) U/L ALT (0-33) U/L Alkaline Phosphata se (35-105) IU/L C-Reactive Protein (0.0-4.9) mg/L NT-Pro-B Natriuret Pep (0-125) pg/mL Total Protein (6.6-8.7) g/dL Albumin (3.5-5.2) g/dL Globulin (1.3-4.6) g/dL Lipase (13-60) U/L Procalcitonin (0-0.5) ng/mL TSH 0.87 (0.27-4.20) uIU/ mL Urine Color (Yellow) Urine Appearance (CLEAR) Urine pH (5-7) Ur Specific Gravit y (1.005-1.030) Urine Protein (Negative) Urine Glucose (UA) (Normal) Urine Ketones (Negative) Urine Blood (Negative) Urine Nitrate (Negative) Urine Bilirubin (Negative) Urine Urobilinogen (Negative) mg/dL Ur Leukocyte Laila ase (Negative) Urine RBC (0-2) /hpf Urine WBC (0-5) /hpf Ur Squamous Epith Cells (0-5) /hpf Amorphous Sediment Urine Bacteria (NONE) /hpf Other Data: Attestation for Other Data: I personally reviewed and interpreted the following: Discharge Plan Discharge Patient Disposition: Admitted As Inpatient Admit Provider: Rayna Gonzalez Clinical Impression: Colitis, Cognitive decline, Vomiting alone Condition: Stable Discharge Diet: Advance as tolerated and GI Soft Discharge Activity: Increase activity as tolerated Coding Level of Care Code ED Program Director [employer] for Chg Fwd Exam Comprehensive
[2020-12-14 05:13] LABS: Glucose Urine UA Norm (Normal); Protein Urine Neg (Negative); Specific Gravity, Urine 1.015 (1.005-1.030); Urine Appearance Hazy (CLEAR); Urine Color Yellow (Yellow); pH Urine 5 (5-7)
[2020-12-14 05:14] LABS: Add Urine Culture? No; Add Urine Microscopic? YES; Bacteria Urine TRACE /hpf; Bilirubin Urine Neg (Negative); Blood Urine Neg (Negative); Ketones Urine 1+ (Negative); Leukocyte Esterase Urine Negative (Negative); Nitrate Urine Negative (Negative); RBC Urine 0-4 /hpf (0-2); Squamous Epithelial Cell Urine 25-40 /hpf (0-5); Urobilinogen Urine Norm (Negative)
[2020-12-14] MEDS: piperacillin-tazobactam 4.5 GM in sodium chloride 0.9% (plus) 50 ML IV (06:05)
--- NOTE | 2020-12-14 07:11 | PC.NURSE ---
Pt resting in bed with lights out. Call light in reach, no needs at this time.
--- NOTE | 2020-12-14 10:46 | P.HP_ITS ---
Providers/Chief Complaint Admitting Physician: Rayna Gonzalez MD Primary Care Provider: Matthew Noel MD Chief Complaint: N/V/D History of Present Illness Hilary Moreno is a 70 year old female with a past medical history of atrial fibrillation on Xarelto, history of ventriculoperitoneal shunt, history of stroke, history of pulmonary emboli, dementia, GERD, KRISTIN. She was last in [facility] in late October for hip fracture and since then has been at [facility]. Most of the history taken through the nurse at [facility]. Apparently patient was at her baseline health until yesterday evening when she woke up last night with one episode of dark brown emesis which was not associated with hematemesis stool was foul-smelling. She also had one episode of foul-smelling very liquid runny diarrhea overnight. At baseline as per the nurse from alf patient is usually AO x2-3 with episodes of regular confusion. She has been working well with physical therapy. She was not no ticed to have any fevers. Her last dose of antibiotics was in last week October. Patient was tested negative for COVID-19 in mid November. Blood work done in the ER today showed a white count of 14,000, hemoglobin of 12.8 with a baseline hemoglobin of around 9.1, platelet count of 390, INR 1.6, potassium 3.4, sodium 142, creatinine 0.8, lactate of 1.4, AST/ALT of 10/7, alkaline phosphatase of 161 with proBNP of 645 UA negative for leuk esterase or nitrate with CT abdomen pelvis with contrast showing interval mild fluid distention of the terminal ileum, in addition of terminal ileum to right pelvic sidewall, air-fluid levels evident in right and transverse colon with possibility of ileocolitis without any free air. Review of Systems General: Reports: ROS unobtainable due to mental status Medications/Allergies Home Medications Medication Instructions Recorded Confirmed Last Taken Type rivaroxaban 20 mg tablet 20 mg PO DAILY@11/12/19 12/14/20 12/13/20 History metoprolol succinate 25 mg 25 mg PO DAILY@10/10/20 12/14/20 12/13/20 History tablet,extended release 24 hr citalopram 40 mg PO DAILY@10/27/20 12/14/20 12/13/20 History fluticasone propionate [Allergy 2 spray INTRANASAL BID@10/27/20 12/14/20 12/13/20 History Relief (fluticasone)] levothyroxine [Synthroid] 25 mcg PO DAILY@10/27/20 12/14/20 12/13/20 History pantoprazole 40 mg PO DAILY@10/27/20 12/14/20 12/13/20 History quetiapine 50 mg PO BID@10/27/20 12/14/20 12/13/20 History Advair HFA 2 puff INHALATION BID PRN 12/14/20 12/14/20 Unknown History acetaminophen 650 mg PO Q4H PRN 12/14/20 12/14/20 Unknown History aspirin 81 mg PO DAILY@12/14/20 12/14/20 12/13/20 History atorvastatin 40 mg PO BEDTIME@12/14/20 12/14/20 12/13/20 History Allergies Allergy/AdvReac Type Severity Reaction Status Date / Time lorazepam [From Ativan] Allergy Unknown Verified 11/28/20 10:56 PFSH Acute PFSH: Medical History A-fib Acute CVA (cerebrovascular accident) Cataract Cerebral aneurysm Chronic diarrhea GERD (gastroesophageal reflux disease) H/O: lung cancer History of CVA (cerebrovascular accident) History of pulmonary embolism Hyperthyroidism Hypertriglyceridemia KRISTIN (obstructive sleep apnea) Primary osteoarthritis of left knee Surgical History History of esophagogastroduodenoscopy (EGD) 06/14/2014 S/P aneurysm repair X3 S/P appendectomy S/P arterial stent S/P colonoscopy 06/14/2014- REFLUX ESOGAPHAGITIS- GASTRITIS S/P hemorrhoidectomy S/P hysterectomy S/P ventriculoperitoneal shunt S/P BODYWORK THERAPIST shunt Social History Smoking and tobacco status: never smoked Alcohol intake: never Household members: spouse Housing: House Marital status: History of recent travel: No Vitals/I&O/Wt Last Vital Signs Temp 98.1 F 12/14/20 09:29 Pulse 60 12/14/20 09:29 Resp 18 12/14/20 09:29 BP 146/66 12/14/20 09:29 Pulse Ox 95 12/14/20 09:29 12/13/20 12/14/20 12/14/20 22:59 06:59 14:59 Intake Total 50 / 50 1000 / 1000 Balance 50 / 50 1000 / 1000 Weight last 48 hrs Weight 74.389 kg Physical Exam Narrative: EXAM NARRATIVE: General: No acute distress, AO 2-3, mildly dehyd rated, slow to respond HEENT: PERRLA, pupils bilaterally equal and reactive Chest: Normal vesicular breath sounds, no added sounds, equal good air entry bilaterally CVS: S1-S2 regular, no murmurs, no tachycardia, no gallops, no rubs Abdomen: Soft, mild tenderness in right lower quadrant, sluggish bowel sounds, no organomegaly Neuro: No focal deficits, no facial deformity, AO x 2-3, moving all 4 limbs Data : 12/14/20 03:50 12/14/20 03:50 A&P Assessment and plan (1) Nausea and vomiting: Status: Acute (2) Colitis: Status: Acute (3) Dehydration: Status: Acute (4) A-fib: Status: Acute (5) Anemia: Status: Acute (6) Dementia with behavioral disturbance: Status: Acute Additional A&P Information Nausea and vomiting prior to admission most likely secondary to colitis seen on CT scan. No signs of sepsis as patient does not have any fever, tachycardia. Start patient on Zosyn for now. Follow-up blood cultures. Check urine Legionella, MRSA swab, procalcitonin, blood culture. Will de-escalate antibiotics as per culture results. Patient complaining of ongoing diarrhea. Check stool studies. Clear liquid diet for now. Will advance if patient stable tolerate diet further. IV hydration with D5 NS with 20 mg potassium at 50 cc an hour. Dehydration: Most likely secondary to above. IV fluids as above. No hemodynamic instability for now. Atrial fibrillation: Continue home dose of metoprolol for now. Rate controlled. Continue with Xarelto. Anemia: Chronic. Hemoglobin elevated right now most likely secondary dehydration. Check iron panel, vitamin B12, folate levels. Will start on IV/oral iron supplementation as per the results. Dementia KRISTIN GERD Continue other chronic medications including aspirin, statin, citalopram, levo thyroxine, Seroquel, Protonix. CODE STATUS: As per the paperwork from the alf patient is DNR/DNI. Xarelto will help with DVT prophylaxis. Protonix OPD prophylaxis Clear liquid diet for now. Attestations Medical Necessity Statement*: Patient requires admission for total more than 2 midnights for nausea/vomiting along with episodes of diarrhea most likely from colitis due to poor oral intake leading to dehydration. Time Spent in Patient Care: Greater than 35 minutes (>than 50% of time spent in counselling and/or direct pt care on unit) . Coding Level of Care Code Acute Lunchroom Monitor for Chg Fwd Diagnoses Nausea and vomiting R11.2 Colitis K52.9 Dehydration E86.0 A-fib I48.91 Anemia D64.9 Dementia with behavioral disturbance F03.91
[2020-12-14] MEDS: dextrose 5%-sod chloride 0.9% 1,000 ML 50 ML IV (11:14)
[2020-12-14 11:38] LABS: NT Pro B Type Natriuretic Pept 645 pg/mL (0-125); Procalcitonin 0.05 ng/mL (0-0.5); Thyroid Stimulating Hormone 0.87 uIU/mL (0.27-4.20)
[2020-12-14 11:49] LABS: Iron 29 ug/dL (37-145); Magnesium 1.8 mg/dL (1.7-2.3); Percent Saturation 12.3 % (20-50); Phosphorus 3.4 mg/dL (2.5-4.5); Total Iron Binding Capacity 234 mcg/dl; Unsaturated Iron Binding 205 ug/dL (112-347)
[2020-12-14] MEDS: piperacillin-tazobactam 3.375 GM in sodium chloride 0.9% (plus) 50 ML IV ×2 (12:29→20:16)
[2020-12-14] MEDS: iron sucrose 200 MG in sodium chloride 0.9% (100 ml) 100 ML 220 MG IV (17:52)
[2020-12-14] MEDS: atorvastatin 40 mg Tablet PO (20:12)
[2020-12-14] MEDS: quetiapine 25 mg Tablet 50 MG PO (20:13)
[2020-12-14] MEDS: rivaroxaban 10 mg Tablet 20 MG PO (20:14)
[2020-12-14] MEDS: fluticasone nasal spray 16gm Btl 2 SPRAY INTRANASAL (20:16)
[2020-12-15] VITALS (8 sets, daily range): BP systolic 121–161; BP diastolic 68–81; PULSE 72–89; RESP 16–18; TEMP 36.4–36.9; O2SAT 95–97
[2020-12-15] MEDS: pantoprazole DR 40 mg Tablet PO (05:04)
[2020-12-15] MEDS: levothyroxine 25 mcg Tablet PO (05:04)
[2020-12-15] MEDS: piperacillin-tazobactam 3.375 GM in sodium chloride 0.9% (plus) 50 ML IV ×3 (05:05→21:50)
[2020-12-15 05:41] LABS: Basophils # 0.1 10^3/uL (0.0-0.1); Basophils % 0.8 %; Eosinophils # 0.3 10^3/uL (0.0-0.8); Eosinophils % 4.2 %; Hemoglobin 10.6 g/dL (11.5-15.3); Lymphocytes # 1.8 10^3/uL (0.8-4.8); Lymphocytes % 24.6 %; Mean Corpuscular HGB Conc 31.2 g/dL (30.0-36.0); Mean Corpuscular Hemoglobin 28.7 pg (28.0-34.0); Mean Corpuscular Volume 92.1 fL (81-99); Mean Platelet Volume 9.4 fL (7.4-10.4); Monocytes # 0.6 10^3/uL (0.2-0.9); Monocytes % 7.7 %; Neutrophils # 4.55 10^3/uL (1.8-7.7); Neutrophils % 62.3 %; Nucleated Red Blood Cells % 0 %; Platelet Count 297 10^3/cmm (130-400); Red Blood Count 3.69 10^6/uL (4.1-5.3); Red Cell Distribution Width 12.7 % (12.1-15.1); White Blood Count 7.3 10^3/uL (4.0-10.0)
--- NOTE | 2020-12-15 06:00 | XR_ITS ---
WS: [id number] CHEST XRAY TECHNIQUE: Portable chest. CLINICAL INFORMATION: copd COMPARISON: October 29, 2020 FINDINGS: Heart: Cardiomegaly. Aortic calcification. Lungs: Moderate chronic emphysematous changes. No acute pulmonary infiltrates. No focal pneumonia or pleural fluid. Bones: Osteopenia. XR/XR chest 1V portable [id number] IMPRESSION: No acute chest findings
[2020-12-15 06:06] LABS: Alanine Aminotransferase 7 U/L (0-33); Albumin Level 3.3 g/dL (3.5-5.2); Alkaline Phosphatase 135 IU/L (35-105); Anion Gap 13.1 (5-19); Aspartate Amino Transferase 9 U/L (0-32); Blood Urea Nitrogen 8 mg/dL (8-23); Calcium 8.4 mg/dL (8.5-10.5); Carbon Dioxide 24 mmol/L (22-29); Chloride 111 mmol/L (98-107); Globulin 3.1 g/dL (1.3-4.6); Glucose 84 mg/dL (65-115); Osmolality Calculated 298 mOsm/kg (285-295); Potassium 3.1 mmol/L (3.5-5.1); Sodium 145 mmol/L (136-145); Total Bilirubin 0.4 mg/dL (0.15-1.2); Total Protein 6.4 g/dL (6.6-8.7)
[2020-12-15 06:08] LABS: C Reactive Protein 23.1 mg/L (0.0-4.9)
[2020-12-15] MEDS: fluticasone nasal spray 16gm Btl 2 SPRAY INTRANASAL ×2 (07:57→21:50)
[2020-12-15] MEDS: quetiapine 25 mg Tablet 50 MG PO ×2 (07:57→21:49)
[2020-12-15] MEDS: aspirin 81 mg Chew Tablet PO (07:57)
[2020-12-15] MEDS: dextrose 5%-sod chloride 0.9% 1,000 ML 50 ML IV (07:58)
[2020-12-15] MEDS: potassium chloride ER 20 mEq Tablet 40 MEQ PO (11:30)
--- NOTE | 2020-12-15 17:25 | P.PN_ITS ---
Subjective Subjective: Interval history: No complaints overnight. Patient has remained afebrile. Denies any nausea, vomiting, headache. Had one episode of vomiting early in the morning today post breakfast. Today morning on examination lying comfortably in bed awakes to physical stimulus. Is at her baseline AO x2-3. Is able to answer all the questions appropriately. Has not had any further bowel movements. Vitals/I&O/Wt Last Vital Signs Temp 98.4 F 12/15/20 16:00 Pulse 75 12/15/20 16:00 Resp 18 12/15/20 16:00 BP 161/81 12/15/20 16:00 Pulse Ox 95 12/15/20 16:00 12/15/20 12/15/20 12/15/20 06:59 14:59 22:59 Intake Total 938.333 / 2098.333 410 / 410 Output Total 0 / 0 Balance 938.333 / 2098.333 410 / 410 Weight last 48 hrs Weight 73.482 kg Weight 74.389 kg Physical Exam Narrative: EXAM NARRATIVE: General: No acute distress, AO 2-3, mildly dehydrated, slow to respond HEENT: PERRLA, pupils bilaterally equal and reactive Chest: Normal vesicular breath sounds, no added sounds, equal good air entry bilaterally CVS: S1-S2 regular, no murmurs, no tachycardia, no gallops, no rubs Abdomen: Soft, mild tenderness in right lower quadrant, sluggish bowel sounds, no organomegaly Neuro: No focal deficits, no facial deformity, AO x 2-3, moving all 4 limbs Data : 12/15/20 05:03 12/15/20 05:03 Other Labs: Pertinent Labs During Stay 12/14/20 12/14/20 12/14/20 03:50 03:50 03:50 Iron 29 L TIBC 234 % Saturation 12.3 L C-Reactive Protein 21.0 H NT-Pro-B Natriuret Pep 645 H Lipase 16 Procalcitonin 0.05 TSH 0.87 12/15/20 05:03 Iron TIBC % Saturation C-Reactive Protein 23.1 H NT-Pro-B Natriuret Pep Lipase Procalcitonin TSH Impressions Abdomen/Pelvis CT 12/14/20 03:34 IMPRESSION: 1. Air-fluid levels now evident in the right and transverse colon along with interval mild fluid distension of the terminal ileum such that ileocolitis not excluded. Still no free air. 2. Interval prominent decrease in size of the small hiatal hernia. 3. Interval movement of the tip of the left shunt tube into the left flank, but still no fluid collection around it. 4. Findings raising the possibility of median arcuate ligament syndrome now visible. 5. Interval appearance of gas in the bladder; clinical correlation recommended as to the history of recent catheterization. 6. Interval stabilization of the left femoral fracture. 7. Left renal mass consistent with a simple cyst still present. Other left renal masses too small to characterize now apparent. Other findings detailed above. COMMENTS: Consistent with the [employer]'s Incidental Findings Committee white paper (J Am Miguel Radiol 2018): Any incidental renal lesion less than 1 cm or classified as too small to characterize, or any incidental cystic renal lesion characterized as simple-appearing, is likely benign. No follow-up imaging is recommended for these lesions per consensus recommendations based on imaging criteria. Radiation Dose CTDIVOL = (mGy): DLP = 770.39 (mGy-cm) Chest X-Ray 12/15/20 06:00 IMPRESSION: No acute chest findings Micro: Microbiology 12/14/20 14:32 Blood Culture - Preliminary Blood NEGATIVE TO DATE 12/14/20 14:31 Blood Culture - Preliminary Blood NEGATIVE TO DATE 12/14/20 03:46 Legionella Urinary Antigen - Final Unknown Source A&P Assessment and plan (1) Nausea and vomiting: Status: Acute (2) Colitis: Status: Acute (3) Dehydration: Status: Acute (4) A-fib: Status: Acute (5) Anemia: Status: Acute (6) Dementia with behavioral disturbance: Status: Acute Additional A&P Information Nausea and vomiting prior to admission most likely secondary to colitis seen on CT scan. No signs of sepsis as patient does not have any fever, tachycardia. Leukocytosis has resolved. Patient has not had any further bowel movements or nausea or vomiting. Advance diet to GI soft and monitor. For now continue with Zosyn. Urine Legionella negative, MRSA swab awaited. Procalcitonin negative. For now we will continue the Zosyn and most likely if patient continues to do well can transition over to oral antibiotics tomorrow. We will do stool studies once patient has a bowel movement. Continue IV hydration with D5 NS with potassium at 50 cc an hour. Supplement oral potassium 40 mEq in addition to IV and fluid. Dehydration: Resolved. Most likely secondary to above. IV fluids as above. No hemodynamic instability for now. Atrial fibrillation: Continue home dose of metoprolol for now. Rate controlled. Continue with Xarelto. Anemia: Chronic. Hemoglobin at baseline now. Iron panel results appreciated. Start patient on IV iron supplementation. Most likely patient will require outpatient oral supplementation as well. Dementia KRISTIN GERD Continue other chronic medications including aspirin, statin, citalopram, levothyroxine, Seroquel, Protonix. CODE STATUS: As per the paperwork from the [facility] patient is DNR/DNI. Xarelto will help with DVT prophylaxis. Protonix OPD prophylaxis GI soft diet and advance as needed. Discharge planning: Most likely can discharge tomorrow if patient continues to tolerate the diet well through the day on oral antibiotics back to [facility]. Attestations Medical Necessity Statement*: Patient requires further hospitalization for management of colitis as her diet is advanced. Time Spent in Patient Care: Greater than 35 minutes (>than 50% of time spent in counselling and/or direct pt care on unit) . Coding Level of Care Code Acute Mud Jack Nozzleman for Chg Fwd Diagnoses Nausea and vomiting R11.2 Colitis K52.9 Dehydration E86.0 A-fib I48.91 Anemia D64.9 Dementia with behavioral disturbance F03.91
[2020-12-15] MEDS: iron sucrose 200 MG in sodium chloride 0.9% (100 ml) 100 ML 220 MG IV (18:32)
[2020-12-15] MEDS: rivaroxaban 10 mg Tablet 20 MG PO (21:49)
[2020-12-15] MEDS: atorvastatin 40 mg Tablet PO (21:50)
[2020-12-16] VITALS (9 sets, daily range): BP systolic 118–152; BP diastolic 57–80; PULSE 77–86; RESP 16–20; TEMP 36.3–36.6; O2SAT 94–98
[2020-12-16] MEDS: piperacillin-tazobactam 3.375 GM in sodium chloride 0.9% (plus) 50 ML IV (07:33)
[2020-12-16] MEDS: pantoprazole DR 40 mg Tablet PO (07:34)
[2020-12-16] MEDS: levothyroxine 25 mcg Tablet PO (07:34)
[2020-12-16] MEDS: dextrose 5%-sod chloride 0.9% 1,000 ML 50 ML IV (08:18)
[2020-12-16] MEDS: aspirin 81 mg Chew Tablet PO (08:20)
[2020-12-16] MEDS: fluticasone nasal spray 16gm Btl 2 SPRAY INTRANASAL (08:20)
[2020-12-16] MEDS: quetiapine 25 mg Tablet 50 MG PO (08:20)
--- NOTE | 2020-12-16 12:09 | PC.CHAP ---
Pastoral Care Encounter/Spiritual Assessment Type of Contact [] Declined mail sorter and delivery visit [] Patient/Family/Request visit [] Outpatient visit [xx] Follow-up visit [] Physician referral [] Code/Alert [xx] Routine visit [] Staff referral [] Actively dying [] Patient sleeping [] Family support [] [] Out of room [] Palliative care [] [] Receiving care in room [] Pre-surgical visit [] Trauma [] Long length of stay [] ICU visit [] Other: Relational/Emotional Strength [xx] Patient feels connected with others/family/visitors/staff [] Distress [] Loneliness/isolation [] Abandonment Spirituality of Patient [xx] Person of Mikki [] Attends Evangelical of their Mikki [xx] Believes in Prayer [xx] Reads Bible or Quaker materials [] There are Spiritual issues to be addressed Net Architect Interventions [xx] Prayer [xx] Active listening [xx] Non-anxious presence [] Spiritual/emotional support [] Crisis/trauma care [] Spiritual counseling [] Bereavement support [] Provided bereavement packet [xx] Provided Bible/devotional materials [] Provided toy/stuffed animal, coloring book to patient or family member [] Provided Communion [] Anointing/[place] [] Salvation [xx] Completed spiritual assessment [] Other: Impact on Illness or Injury [] Angry [] Fearful [] Anxious [] Often cries [] Exhaustion [] Unable to work [] Unable to attend episcopal [] Unable to walk/stand [] Unable to read [] Unable to drive [] Unable to eat/drink [] Unable to sleep [] Unable to be with family [] Patient intubated [] Other: Summary Patient stated she feels much better. She is concerned about her family and hopes to be discharged before the snow storm and extreme cold arrives in about 48 hours. Patien accepted devotional [employer]. Time spent with patient 12 minutes
--- NOTE | 2020-12-16 12:27 | PM.DCS ---
Discharge Providers Date of Admission: 12/14/20 07:06 Date of Discharge: December 16, 2020 Attending Provider at Admission: Rayna Gonzalez MD Attending Provider at Discharge: Raffaele Hunter MD Primary Care Provider: Matthew Noel MD Diagnoses at Discharge Discharge Diagnosis (1) Nausea and vomiting: Status: Acute (2) Colitis: Status: Acute (3) Dehydration: Status: Acute (4) A-fib: Status: Acute (5) Anemia: Status: Acute (6) Dementia with behavioral disturbance: Status: Acute Reason for Visit Reason for Visit: N/V/D Hospital Course Hospital Course Hilary Moreno is a 70 year old female with a past medical history of atrial fibrillation on Xarelto, history of ventriculoperitoneal shunt, history of stroke, history of pulmonary emboli, dementia, GERD, KRISTIN. She was last in hospital in late October for hip fracture and since then has been at [facility]. Most of the history taken through the nurse at [facility]. Apparently patient was at her baseline health until yesterday evening when she woke up last night with one episode of dark brown emesis which was not associated with hematemesis stool was foul-smelling. She also had one episode of foul-smelling very liquid runny diarrhea overnight. At baseline as per the nurse from [facility] patient is usually AO x2-3 with episodes of regular confusion. She has been working well with physical therapy. She was not noticed to have any fevers. Her last dose of antibiotics was in last week October. Patient was tested negative for COVID-19 in mid November. Blood work done in the ER today showed a white count of 14,000, hemoglobin of 12.8 with a baseline hemoglobin of around 9.1, platelet count of 390, INR 1.6, potassium 3.4, sodium 142, creatinine 0.8, lactate of 1.4, AST/ALT of 10/7, alkaline phosphatase of 161 with proBNP of 645 UA negative for leuk esterase or nitrate with CT abdomen pelvis with contrast showing interval mild fluid distention of the terminal ileum, in addition of terminal ileum to right pelvic sidewall, air-fluid levels evident in right and transverse colon with possibility of ileocolitis without any free air. She is out of the hospital for treatment of ileocolitis. She was kept n.p.o. for 1 day and started on broad-spectrum antibiotics. She did not have any further nausea vomiting or diarrhea. Blood cultures remain negative. Diet was advanced eventually and she did well on GI soft diet for more than 12 hours. She is been discharged hemodynamically stable condition on oral ciprofloxacin and Flagyl for 5 more days. She is advised to take GI soft diet for next 7 days and then advance gradually to regular diet. Patient during hospitalization did not have any episodes of agitation or confusion. She is been discharged on her baseline mentation. Physical Exam Narrative: EXAM NARRATIVE: General: No acute distress, AO 2-3, mildly dehydrated, slow to respond HEENT: PERRLA, pupils bilaterally equal and reactive Chest: Normal vesicular breath sounds, no added sounds, equal good air entry bilaterally CVS: S1-S2 regular, no murmurs, no tachycardia, no gallops, no rubs Abdomen: Soft, mild tenderness in right lower quadrant, sluggish bowel sounds, no organomegaly Neuro: No focal deficits, no facial deformity, AO x 2-3, moving all 4 limbs Discharge Data Data Completed and Pending: Completed Studies During Hospitalization Category Date Time Status CT abdomen pelvis w con* [id number] Stat Cat Scan 12/14/20 03:34 Completed XR chest 1V radha ble [id number] Routine Exams 12/15/20 06:00 Completed Pending at discharge Category Date Time Status Blood Culture Sta t Lab 12/14/20 14:32 Results Clostridioides Di fficile PCR Routin e Lab 12/14/20 10:51 Ordered Enteric Bacterial Panel by PCR Rout ine Lab 12/14/20 10:51 Ordered Enteric Parasite Panel by PCR Routi ne Lab 12/14/20 10:51 Ordered Immunochemical Fe hunter OCB Routine Lab 12/14/20 10:51 Ordered Lactoferrin Routi ne Lab 12/14/20 10:51 Ordered Miscellaneous Anastasia t Routine Lab 12/14/20 14:39 Received Labs from last 24 hours 12/16/20 06:50 Misc Test Referenc e Pending Laboratory Results WBC 7.3 10^3/uL (4.0- 10.0) 12/15/20 05:03 RBC 3.69 10^6/uL (4.1 -5.3) L 12/15/20 05:03 Hgb 10.6 g/dL (11.5-1 5.3) L 12/15/20 05:03 Hct 34.0 % (37.0-47.0 ) L 12/15/20 05:03 MCV 92.1 fL (81-99) 12/15/20 05:03 MCH 28.7 pg (28.0-34. 0) 12/15/20 05:03 MCHC 31.2 g/dL (30.0-3 6.0) 12/15/20 05:03 RDW 12.7 % (12.1-15.1 ) 12/15/20 05:03 Plt Count 297 10^3/cmm (130 -400) 12/15/20 05:03 MPV 9.4 fL (7.4-10.4) 12/15/20 05:03 Neut % (Auto) 62.3 % 12/15/20 05:03 Lymph % (Auto) 24.6 % 12/15/20 05:03 [place] % (Auto) 7.7 % 12/15/20 05:03 Eos % (Auto) 4.2 % 12/15/20 05:03 Baso % (Auto) 0.8 % 12/15/20 05:03 Neut # (Auto) 4.55 10^3/uL (1.8 -7.7) 12/15/20 05:03 Lymph # (Auto) 1.8 10^3/uL (0.8- 4.8) 12/15/20 05:03 [place] # (Auto) 0.6 10^3/uL (0.2- 0.9) 12/15/20 05:03 Eos # (Auto) 0.3 10^3/uL (0.0- 0.8) 12/15/20 05:03 Baso # (Auto) 0.1 10^3/uL (0.0- 0.1) 12/15/20 05:03 Nucleated RBC % (a uto) 0 % 12/15/20 05:03 Nucleated RBCs # 0.0 /100WBC 12/15/20 05:03 PT 20.30 SECONDS (12 .1-14.9) H 12/14/20 03:50 INR 1.68 (0.8-1.2) H 12/14/20 03:50 Sodium 145 mmol/L (136-1 45) 12/15/20 05:03 Potassium 3.1 mmol/L (3.5-5 .1) L 12/15/20 05:03 Chloride 111 mmol/L (98-10 7) H 12/15/20 05:03 Carbon Dioxide 24 mmol/L (22-29) 12/15/20 05:03 Anion Gap 13.1 (5-19) 12/15/20 05:03 BUN 8 mg/dL (8-23) 12/15/20 05:03 Creatinine 0.8 mg/dL (0.5-0. 9) 12/15/20 05:03 GFR Calculation Not Reportable 12/15/20 05:03 Glucose 84 mg/dL (65-115) 12/15/20 05:03 Calculated Osmolal ity 298 mOsm/kg (285- 295) H 12/15/20 05:03 Lactate 1.4 mmol/L (0.5-2 .2) 12/14/20 03:50 Calcium 8.4 mg/dL (8.5-10 .5) L 12/15/20 05:03 Phosphorus 3.4 mg/dL (2.5-4. 5) 12/14/20 03:50 Magnesium 1.8 mg/dL (1.7-2. 3) 12/14/20 03:50 Magnesium 1.8 mg/dL (1.7-2. 3) 12/14/20 03:50 Iron 29 ug/dL (37-145) L 12/14/20 03:50 TIBC 234 mcg/dl 12/14/20 03:50 % Saturation 12.3 % (20-50) L 12/14/20 03:50 Unsat Iron Binding 205 ug/dL (112-34 7) 12/14/20 03:50 Total Bilirubin 0.4 mg/dL (0.15-1 .2) 12/15/20 05:03 AST 9 U/L (0-32) 12/15/20 05:03 ALT 7 U/L (0-33) 12/15/20 05:03 Alkaline Phosphata se 135 IU/L (35-105) H 12/15/20 05:03 C-Reactive Protein 23.1 mg/L (0.0-4. 9) H 12/15/20 05:03 NT-Pro-B Natriuret Pep 645 pg/mL (0-125) H 12/14/20 03:50 Total Protein 6.4 g/dL (6.6-8.7 ) L 12/15/20 05:03 Albumin 3.3 g/dL (3.5-5.2 ) L 12/15/20 05:03 Globulin 3.1 g/dL (1.3-4.6 ) 12/15/20 05:03 Lipase 16 U/L (13-60) 12/14/20 03:50 Procalcitonin 0.05 ng/mL (0-0.5 ) 12/14/20 03:50 TSH 0.87 uIU/mL (0.27 -4.20) 12/14/20 03:50 Urine Color Yellow (Yellow) 12/14/20 03:46 Urine Appearance Hazy (CLEAR) A 12/14/20 03:46 Urine pH 5 (5-7) 12/14/20 03:46 Ur Specific [place]it y 1.015 (1.005-1.0 30) 12/14/20 03:46 Urine Protein Neg (Negative) 12/14/20 03:46 Urine Glucose (UA) Norm (Normal) 12/14/20 03:46 Urine Ketones 1+ (Negative) H 12/14/20 03:46 Urine Blood Neg (Negative) 12/14/20 03:46 Urine Nitrate Negative (Negati ve) 12/14/20 03:46 Urine Bilirubin Neg (Negative) 12/14/20 03:46 Urine Urobilinogen Norm mg/dL (Negat jeffery) 12/14/20 03:46 Ur Leukocyte Laila ase Negative (Negati ve) 12/14/20 03:46 Urine RBC 0-4 /hpf (0-2) H 12/14/20 03:46 Urine WBC None /hpf (0-5) 12/14/20 03:46 Ur Squamous Epith Cells 25-40 /hpf (0-5) H 12/14/20 03:46 Amorphous Sediment Not Reportable 12/14/20 03:46 Urine Bacteria Trace /hpf (NONE) 12/14/20 03:46 Impressions Abdomen/Pelvis CT 12/14/20 03:34 IMPRESSION: 1. Air-fluid levels now evident in the right and transverse colon along with interval mild fluid distension of the terminal ileum such that ileocolitis not excluded. Still no free air. 2. Interval prominent decrease in size of the small hiatal hernia. 3. Interval movement of the tip of the left shunt tube into the left flank, but still no fluid collection around it. 4. Findings raising the possibility of median arcuate ligament syndrome now visible. 5. Interval appearance of gas in the bladder; clinical correlation recommended as to the history of recent catheterization. 6. Interval stabilization of the left femoral fracture. 7. Left renal mass consistent with a simple cyst still present. Other left renal masses too small to characterize now apparent. Other findings detailed above. COMMENTS: Consistent with the [employer]'s Incidental Findings Committee white paper (J Am Miguel Radiol 2018): Any incidental renal lesion less than 1 cm or classified as too small to characterize, or any incidental cystic renal lesion characterized as simple-appearing, is likely benign. No follow-up imaging is recommended for these lesions per consensus recommendations based on imaging criteria. Radiation Dose CTDIVOL = (mGy): DLP = 770.39 (mGy-cm) Chest X-Ray 12/15/20 06:00 IMPRESSION: No acute chest findings Vitals: Last Vital Signs Temp 97.5 F L 12/16/20 12:00 Pulse 78 12/16/20 12:00 Resp 18 12/16/20 12:00 BP 121/57 12/16/20 12:00 Pulse Ox 94 12/16/20 12:00 Discharge Plan Discharge Patient Disposition: Xfer SNF Condition: Stable Prescriptions: New ondansetron 8 mg tablet,disintegrating 8 mg PO BID PRN (Reason: nausea and vomiting) 2 Days Qty: 14 RF: 0 Cipro 500 mg tablet 500 mg PO Q12H Qty: 10 RF: 0 Flagyl 500 mg tablet 500 mg PO TID Qty: 14 RF: 0 ferrous sulfate 250 mg (50 mg iron) tablet extended release 250 mg PO DAILY Qty: 30 RF: 0 Continued Xarelto 20 mg tablet 20 mg PO DAILY@20 RF: 0 Hold Instructions: Resume on 11/08/20. hold for 1 week, recheck cbc, if hgb>10 can restart xarelto metoprolol succinate 25 mg tablet extended release 24 hr 25 mg PO DAILY@08 RF: 0 citalopram 40 mg tablet 40 mg PO DAILY@08 RF: 0 levothyroxine [Synthroid] 25 mcg tablet 25 mcg PO DAILY@05 RF: 0 pantoprazole 40 mg tablet,delayed release (DR/EC) 40 mg PO DAILY@06 RF: 0 fluticasone propionate [Allergy Relief (fluticasone)] 50 mcg/actuation spray,suspension 2 spray INTRANASAL BID@08,20 RF: 0 quetiapine 50 mg tablet 50 mg PO BID@08,20 RF: 0 atorvastatin 40 mg Tablet 40 mg PO BEDTIME@20 RF: 0 acetaminophen 325 mg Tablet 650 mg PO Q4H PRN (Reason: Pain) RF: 0 aspirin 81 mg Tablet,Chewable 81 mg PO DAILY@08 RF: 0 Advair HFA 115-21 mcg/actuation HFA aerosol inhaler 2 puff INHALATION BID PRN (Reason: Shortness Of Breath) RF: 0 Discharge Orders: Discharge Order (Routine); Ordered 12/16/20 Ordered By: Raffaele Hunter Referrals: Matthew Noel MD [Primary Care Provider] - Discharge Diet: Advance as tolerated and GI Soft Discharge Activity: Increase activity as tolerated Patient Instructions: Infectious Colitis (ED) Activity Restrictions/Additional Instructions: Please continue GI soft diet for 1 week and then advance as needed. Take small frequent meals. Continue with ciprofloxacin and Flagyl for 5 more days to finish a course of antibiotics. Follow-up with your primary care provider in the next 1 week. Discharge Attestations Time Spent in Discharge Care*: greater than 30 min Specific Discharge Activities: discussing with case management specialist/social workers/dc planners, documenting/other paperwork and evaluating patient/reviewing data Status at Discharge: Cognitive status at discharge: mildly impaired cognition, Behavioral status at discharge: cooperative, Functional status at discharge: other assisted ambulation Overall status at discharge: patient is back to baseline Quality Metrics Clinical Quality Measures During this hospital stay, did patient experience: None Coding Level of Care Code Acute Document Analyst for Chg Fwd Diagnoses Nausea and vomiting R11.2 Colitis K52.9 Dehydration E86.0 A-fib I48.91 Anemia D64.9 Dementia with behavioral disturbance F03.91
== END 2020-12-16 17:50 | disposition skilled nursing facility (03) | DRG 392 ==
LOC: ER 05:55 → MEDSURG 08:43
PROVIDERS: Admitting Provider Hospitalist; Emergency Provider Family Medicine; PCP Internal Medicine; Visit Provider Student in an Organized Health Care Education/Training Program
DX: K52.9 Noninfective gastroenteritis and colitis, unspecified (principal); F03.91 Unspecified dementia, unspecified severity, with behavioral disturbance; R11.13 Vomiting of fecal matter; E86.0 Dehydration; I48.91 Unspecified atrial fibrillation; Z66 Do not resuscitate; D64.9 Anemia, unspecified; G47.33 Obstructive sleep apnea (adult) (pediatric); K21.9 Gastro-esophageal reflux disease without esophagitis; Z86.73 Personal history of transient ischemic attack (TIA), and cerebral infarction without residual deficits; Z79.01 Long term (current) use of anticoagulants; Z86.711 Personal history of pulmonary embolism; Z79.82 Long term (current) use of aspirin; Z85.118 Personal history of other malignant neoplasm of bronchus and lung
CPT/HCPCS: 12345; 36415; 71045; 74177; 80053; 81001; 83540; 83550; 83605; 83690; 83735; 83880; 84100; 84145; 84443; 85025; 85610; 86140; 87040; 87449; 87641; 94664; 99283; J1756; J2405; J2543; J7030; Q9967

== ENCOUNTER 2023-06-20 10:40 | Inpatient (IN) | payer MEDICARE, OTHER, SELFPAY ==
[2023-06-20] VITALS (31 sets, daily range): BP systolic 86–124; BP diastolic 44–88; PULSE 82–150; RESP 16–36; TEMP 36.5–39.5; O2SAT 90–97; BMI 27.4
--- NOTE | 2023-06-20 10:41 | XR_ITS ---
WS: [id number] Portable AP semiupright chest, 06/20/2023 Clinical Data: fever Comparison: Portable chest, 12/15/2020 Findings: No nodules, masses or effusions are seen. The heart is normal. The pulmonary vascularity is not increased. No pneumonia or pneumothorax is seen. The aortic arch and descending thoracic aorta s hows tortuosity and calcification. There are monitor leads on the chest wall. Impression: Atherosclerosis.
--- NOTE | 2023-06-20 10:42 | ECG_ITS ---
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 Measurements Intervals [place] Rate: 149 P: 0 LA: 0 QRS: 26 QRSD: 85 T: 64 QT: 287 QTc: 453 Interpretive Statements SUPRAVENTRICULAR TACHYCARDIA MINIMAL ST DEPRESSION [0.025+ mV ST DEPRESSION] Compared to ECG 10/28/2020 00:27:09 ST (T wave) deviation now present Sinus rhythm no longer present T-wave abnormality no longer present Electronically Signed On 06-20-2023 15:17:15 CDT by Joon Almeida M.D. [id number]
--- NOTE | 2023-06-20 10:46 | ED_ITS ---
HPI - General Adult General: Chief complaint: Nausea/Vomiting/Diarrhea Stated complaint: n/v/d Time Seen by Provider: 06/20/23 10:41 Source: EMS Mode of arrival: EMS Limitations: altered mental status History of Present Illness: 72-year-old female who is here from correction with a fever she does have a history of dementia but correction states that she has been more confused than typical and less responsive. Here she is only orientated to self is not really able answer much more questioning. He states that she has had some nausea vomiting over the last day along with fever she does have a fever here 103. Review of Systems General: Reports: ROS unobtainable due to mental status PFSH ED PFSH: Medical History A-fib Acute CVA (cerebrovascular accident) Cataract Cerebral aneurysm Chronic diarrhea Cognitive decline Dementia with behavioral disturbance GERD (gastroesophageal reflux disease) H/O: lung cancer History of CVA (cerebrovascular accident) History of pulmonary embolism Hyperthyroidism Hypertriglyceridemia KRISTIN (obstructive sleep apnea) Primary osteoarthritis of left knee Vomiting alone Surgical History History of esophagogastroduodenoscopy (EGD) 06/14/2014 S/P aneurysm repair X3 S/P appendectomy S/P arterial stent S/P colonoscopy 06/14/2014- REFLUX ESOGAPHAGITIS- GASTRITIS S/P hemorrhoidectomy S/P hysterectomy S/P ventriculoperitoneal shunt 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 Social History Smoking and tobacco status: never smoked Alcohol intake: never Substance/Drug Use: never Household members: spouse Housing: House Marital status: Physical Exam Const: COMMON NORMALS: alert; negative for patient oriented x3 GENERAL APPEARANCE: in distress and ill appearing ORIENTATION/CONSCIOUSNESS: Yes oriented to person; not oriented to place and not oriented to time HENMT: COMMON NORMALS: normocephalic and atraumatic HEAD & SCALP: normocephalic and atraumatic Eye: COMMON NORMALS: Equal, round and reactive pupils present and EOMs intact bilaterally PUPIL: Yes Equal, round and reactive pupils present Neck/C-Spine: COMMON NORMALS: full ROM and supple Chest: COMMONS NORMALS: normal inspection of the chest and normal palpation of entire chest wall Resp: COMMON NORMALS: No use of accessory muscles AUSCULTATION: rales Cardio: COMMON NORMALS: regular rhythm and No murmurs present (Cardio) RATE: tachycardic RHYTHM: regular rhythm GI: COMMON NORMALS: Normal to inspection, nondistended, normoactive bowel sounds present, Soft to palpation, non-tender and no masses PALPATION: Yes Soft to palpation Extremity: COMMON NORMALS: normal to inspection and full ROM Neuro: COMMON NORMALS: moves all extremities and no focal motor deficits; negative for patient oriented x3 SENSORIUM/ORIENTATION: Yes alert, Yes oriented to person, No oriented to place and No oriented to time Psych: COMMON NORMALS: cooperative; negative for mental status grossly normal Skin: COMMON NORMALS: no rashes or lesions noted and no wounds GENERAL SKIN EXAM: no rashes or lesions noted Course Vital Signs: Vital signs: Vital Signs Temperature 103.1 F H 06/20/23 10:41 Pulse Rate 130 H 06/20/23 11:51 Respiratory Rate 24 H 06/20/23 11:51 Blood Pressure 111/51 06/20/23 11:51 Pulse Oximetry 94 06/20/23 11:51 Oxygen Delivery Me thod Room Air 06/20/23 11:51 MDM - General Adult Medical Decision Making Patient presents here with fever along with some altered mental status she does have a pyelonephritis likely causing the symptoms she had no hypotension she does have elevated lactate and white count consistent with sepsis patient was started on IV antibiotics did receive her 30 mL/kg fluid bolus blood pressures been stable spoke to the hospitalist will admit to ICU. Medical Records I reviewed the patient's medical records. Lab Data I reviewed the patient's lab results. 06/20/23 11:55 06/20/23 11:55 Laboratory Results WBC 16.3 10^3/uL (4.0-10.0) H 06/20/23 11:55 RBC 4.29 10^6/uL (4.1-5.3) 06/20/23 11:55 Hgb 12.1 g/dL (11.5-15.3) 06/20/23 11:55 Hct 42.3 % (37.0-47.0) 06/20/23 11:55 MCV 98.6 fl (81-99) 06/20/23 11:55 MCH 28.2 pg (28.0-34.0) 06/20/23 11:55 MCHC 28.6 g/dL (30.0-36.0) L 06/20/23 11:55 RDW 13.6 % (12.1-15.1) 06/20/23 11:55 Plt Count 254 10^3/cmm (130-400) 06/20/23 11:55 MPV 8.4 fL (7.4-10.4) 06/20/23 11:55 Neut % (Auto) 95.4 % 06/20/23 11:55 Lymph % (Auto) 2.0 % 06/20/23 11:55 [place] % (Auto) 1.2 % 06/20/23 11:55 Eos % (Auto) 0.0 % 06/20/23 11:55 Baso % (Auto) 0.4 % 06/20/23 11:55 Neut # (Auto) 15.57 10^3/uL (1.8-7.7) H 06/20/23 11:55 Lymph # (Auto) 0.3 10^3/uL (0.8-4.8) L 06/20/23 11:55 [place] # (Auto) 0.2 10^3/uL (0.2-0.9) 06/20/23 11:55 Eos # (Auto) 0.0 10^3/uL (0.0-0.8) 06/20/23 11:55 Baso # (Auto) 0.1 10^3/uL (0.0-0.1) 06/20/23 11:55 Nucleated RBC % (auto) 0 % 06/20/23 11:55 Nucleated RBCs # 0.0 /100WBC 06/20/23 11:55 PT 15.20 SECONDS (12.1-14.9) H 06/20/23 11:55 INR 1.17 (0.8-1.2) 06/20/23 11:55 Sodium 139 mmol/L (136-145) 06/20/23 11:55 Potassium 3.4 mmol/L (3.5-5.1) L 06/20/23 11:55 Chloride 103 mmol/L (98-107) 06/20/23 11:55 Carbon Dioxide 20 mmol/L (22-29) L 06/20/23 11:55 Anion Gap 19.4 (5-19) H 06/20/23 11:55 BUN 16 mg/dL (8-23) 06/20/23 11:55 Creatinine 1.1 mg/dL (0.5-0.9) H 06/20/23 11:55 GFR Calculation Not Reportable 06/20/23 11:55 Glucose 99 mg/dL (65-115) 06/20/23 11:55 Calculated Osmolality 289 mOsm/kg (285-295) 06/20/23 11:55 Lactic Acid 5.2 mmol/L (0.5-2.2) H* 06/20/23 11:55 Calcium 8.6 mg/dL (8.5-10.5) 06/20/23 11:55 Total Bilirubin 0.6 mg/dL (0.15-1.2) 06/20/23 11:55 AST 21 U/L (0-32) 06/20/23 11:55 ALT 14 U/L (0-33) 06/20/23 11:55 Alkaline Phosphatase 128 U/L (35-105) H 06/20/23 11:55 NT-Pro-B Natriuret Pep 1172 pg/mL (0-125) H 06/20/23 11:55 Total Protein 6.7 g/dL (6.6-8.7) 06/20/23 11:55 Albumin 2.9 g/dL (3.5-5.2) L 06/20/23 11:55 Globulin 3.8 g/dL (1.3-4.6) 06/20/23 11:55 Lipase 43 U/L (13-60) 06/20/23 11:55 Urine Color Yellow (Yellow) 06/20/23 11:16 Urine Appearance Cloudy (CLEAR) A 06/20/23 11:16 Urine pH 6 (5-7) 06/20/23 11:16 Ur Specific [place] 1.005 (1.005-1.030) 06/20/23 11:16 Urine Protein 3+ (Negative) H 06/20/23 11:16 Urine Glucose (UA) Norm (Normal) 06/20/23 11:16 Urine Ketones 1+ (Negative) H 06/20/23 11:16 Urine Blood 3+ (Negative) H 06/20/23 11:16 Urine Nitrate Positive (Negative) H 06/20/23 11:16 Urine Bilirubin Neg (Negative) 06/20/23 11:16 Urine Urobilinogen Norm mg/dL (Negative) 06/20/23 11:16 Ur Leukocyte Esterase 2+ (Negative) H 06/20/23 11:16 Urine RBC 5-10 /hpf (0-2) H 06/20/23 11:16 Urine WBC 25-40 /hpf (0-5) H 06/20/23 11:16 Ur Squamous Epith Cells 0-4 /hpf (0-5) H 06/20/23 11:16 Amorphous Sediment Not Reportable 06/20/23 11:16 Urine Bacteria 4+ /hpf (NONE) H 06/20/23 11:16 SARS-CoV-2 Ag (Rapid) negative (Negative) 06/20/23 11:11 Critical Care Time Critical Care Time: Critical Care Time: Yes Total Critical Care Time: 45 Attestation: The high probability of a clinically significant, sudden or life threatening deterioration of the patient's gu system(s) required my full and direct attention, intervention and personal management. The critical care time is as shown. This time is in addition to time spent performing any reported procedures but includes the following: [x] Data and vital sign review and interpretation [x] Patient assessment, examination and intervention [x] Documentation [x] Medication orders and management Discharge Plan Discharge Patient Disposition: Admitted As Inpatient Clinical Impression: Acute pyelonephritis, Sepsis Condition: Stable Prescriptions: No Action metoprolol succinate 25 mg tablet extended release 24 hr 25 mg PO DAILY@08 levothyroxine [Synthroid] 25 mcg tablet 25 mcg PO DAILY@05 pantoprazole 40 mg tablet,delayed release (DR/EC) 40 mg PO DAILY@06 atorvastatin 40 mg Tablet 40 mg PO BEDTIME@20 aspirin 81 mg Tablet,Chewable 81 mg PO DAILY@08 ferrous sulfate 250 mg (50 mg iron) tablet extended release 250 mg PO DAILY Qty: 30 0RF citalopram 10 mg Tablet 15 mg PO DAILY Zofran 8 mg Tablet 8 mg PO Q12H PRN (Reason: Nausea) Marlys-Tussin 100 mg/5 mL Liquid 200 mg PO Q4H PRN (Reason: Cough) Tylenol Arthritis 650 mg Tablet Extended Release 650 mg PO Q6H PRN (Reason: Pain) Eliquis 2.5 mg tablet 2.5 mg PO BID Referrals: Matthew Noel MD [Primary Care Provider] - Coding Level of Care Code ED Director Of Pulmonary Unit for Edith Bailon
--- NOTE | 2023-06-20 10:47 | CT_ITS ---
WS: [id number] CT HEAD NONCONTRAST HISTORY: ams TECHNIQUE: Contiguous axial imaging performed through the brain in 2.5 mm imaging. Bone and soft tiss ue windows. Sagittal and coronal reformats reviewed. All CT scans at [facility] use at least one of these dose optimization techniques: automated exposure control; mA and/or kV adjustment per pa tient size (includes targeted exams where dose is matched to clinical indication); or iterative recon struction. DLP: 1272.32 mGy.cm COMPARISON: 10/29/2020 No acute intracranial hemorrhage, midline shift or mass effect. Right parietal ventriculostomy terminates in the left lateral ventricle as on the prior study. There is mild diffuse hydrocephalus. Temporal lobes appear more prominent than on the prior examination. Th ere is no midline shift. Moderate atrophy and small vessel ischemic disease. Mild cerebellar atrophy. Prior lacunar infarct ri ght thalamus. Ventricles: Diffuse ventriculomegaly. Paranasal sinuses: Mild mucoperiosteal thickening in the left sphenoid sinus. No air-fluid levels. Mastoid air cells: Well pneumatized. Calvarium and scalp: Right frontotemporal craniectomy. There is extensive artifact at the skull base from numerous aneurysm clips near the distal right ICA. IMPRESSION: 1. No acute intracranial hemorrhage or edema. 2. Right parietal ventriculostomy catheter terminates in the left lateral ventricle, unchanged in pos ition. 3. Mild diffuse hydrocephalus. There is been mild progression of ventricular dilatation since the lea or study of 10/29/2020. 4. Numerous aneurysm clips near the distal right ICA. 5. Moderate atrophy and small vessel ischemic disease with prior lacunar infarcts.
[2023-06-20] MEDS: ondansetron 2 mg/ML SDV 2 mL 4 MG IVP (11:23)
[2023-06-20] MEDS: sodium chloride 0.9% 1,000 ML 999 ML IV ×2 (11:24→11:33)
[2023-06-20] MEDS: acetaminophen 1,000 MG/100 ML PIGGYBACK 400 MG IV (11:24)
[2023-06-20 11:45] LABS: SARS Covid-2 Antigen negative (Negative)
[2023-06-20 12:02] LABS: Basophils # 0.1 10^3/uL (0.0-0.1); Basophils % 0.4 %; Hematocrit 42.3 % (37.0-47.0); Hemoglobin 12.1 g/dL (11.5-15.3); Lymphocytes # 0.3 10^3/uL (0.8-4.8); Mean Corpuscular HGB Conc 28.6 g/dL (30.0-36.0); Mean Corpuscular Hemoglobin 28.2 pg (28.0-34.0); Mean Corpuscular Volume 98.6 fl (81-99); Mean Platelet Volume 8.4 fL (7.4-10.4); Monocytes # 0.2 10^3/uL (0.2-0.9); Monocytes % 1.2 %; Neutrophils # 15.57 10^3/uL (1.8-7.7); Neutrophils % 95.4 %; Nucleated Red Blood Cells % 0 %; Platelet Count 254 10^3/cmm (130-400); Red Blood Count 4.29 10^6/uL (4.1-5.3); Red Cell Distribution Width 13.6 % (12.1-15.1); White Blood Count 16.3 10^3/uL (4.0-10.0)
[2023-06-20 12:14] LABS: INR 1.17 (0.8-1.2)
[2023-06-20 12:23] LABS: Add Urine Microscopic? YES; Bilirubin Urine Neg (Negative); Blood Urine 3+ (Negative); Glucose Urine UA Norm (Normal); Ketones Urine 1+ (Negative); Leukocyte Esterase Urine 2+ (Negative); Nitrate Urine Positive (Negative); Protein Urine 3+ (Negative); Specific Gravity, Urine 1.005 (1.005-1.030); Urine Appearance Cloudy (CLEAR); Urine Color Yellow (Yellow); Urobilinogen Urine Norm (Negative); pH Urine 6 (5-7)
[2023-06-20 12:24] LABS: Add Urine Culture? Yes; Bacteria Urine 4+ /hpf; Squamous Epithelial Cell Urine 0-4 /hpf (0-5); WBC Urine 25-40 /hpf (0-5)
[2023-06-20 12:32] LABS: Lactic Sepsis W/Reflex 5.2 mmol/L (0.5-2.2)
[2023-06-20 12:39] LABS: Alanine Aminotransferase 14 U/L (0-33); Albumin Level 2.9 g/dL (3.5-5.2); Alkaline Phosphatase 128 U/L (35-105); Anion Gap 19.4 (5-19); Aspartate Amino Transferase 21 U/L (0-32); Blood Urea Nitrogen 16 mg/dL (8-23); Calcium 8.6 mg/dL (8.5-10.5); Carbon Dioxide 20 mmol/L (22-29); Chloride 103 mmol/L (98-107); Globulin 3.8 g/dL (1.3-4.6); Glucose 99 mg/dL (65-115); Lipase 43 U/L (13-60); NT Pro B Type Natriuretic Pept 1172 pg/mL (0-125); Osmolality Calculated 289 mOsm/kg (285-295); Potassium 3.4 mmol/L (3.5-5.1); Sodium 139 mmol/L (136-145); Total Bilirubin 0.6 mg/dL (0.15-1.2); Total Protein 6.7 g/dL (6.6-8.7)
[2023-06-20 12:43] LABS: Creatinine Clr Calc Pharmacy 47.0506
--- NOTE | 2023-06-20 13:08 | CT_ITS ---
WS: [id number] CT ABDOMEN AND PELVIS NONCONTRAST HISTORY: abdominal pain TECHNIQUE: Imaging performed through the abdomen and pelvis. Coronal and sagittal reformats are submi tted. All CT scans at [facility] use at least one of these dose optimization techniques: auto mated exposure control; mA and/or kV adjustment per patient size (includes targeted exams where dose is matched to clinical indication); or iterative reconstruction. DLP: 938.70 mGy.cm COMPARISON: 12/14/2020 Lower thorax: breathing motion artifact at the lung bases. There is mild paravertebral soft tissue t hickening in the lower thoracic spine of uncertain etiology. May be postinflammatory. Mild enlargemen t of the heart. Small hiatal hernia. Liver: Normal size liver. No mass or bile duct dilatation. Gallbladder: Cholelithiasis without acute cholecystitis. Pancreas: Mild atrophy. Spleen: Normal. Adrenal glands: Normal. No mass. Right kidney: Mild perinephric stranding. Vascular calcification in the central pelvis. Left kidney: Moderate perinephric stranding surrounding the kidney. Exophytic mass measuring 1.3 cm f rom the mid lateral kidney. Noted to be a cyst on a prior exam. Aorta: Mild atherosclerosis abdominal aorta with no aneurysm. No free fluid, intraperitoneal air or significant lymphadenopathy. GI tract: Negative stomach. No small bowel obstruction. Mild distal colonic diverticular burden. Appe ndix is not visualized. Abdominal wall: Small umbilical hernia contains fat only. Pelvis: Gar catheter present in the urinary bladder. There is a small amount of air from the cathet er placement. No free fluid or adenopathy within the pelvis. Prior hysterectomy. Osseous structures: Bilateral femoral head changes of early osteonecrosis without collapse. Prior fix ation left hip fracture. IMPRESSION: 1. New bilateral perinephric stranding most significant involving the left kidney. Highly suspicious for pyelonephritis involving the left kidney. 2. No GI tract obstruction and no diverticulitis. 3. No ascites or adenopathy. 4. Very mild soft tissue thickening adjacent to the lower thoracic vertebral body. Uncertain etiolog y.
[2023-06-20] MEDS: sodium chloride 0.9% 500 ML 999 ML IV (13:30)
[2023-06-20 13:46] LABS: Reflex Lactate Order REFLEX LACTIC ORDERD
[2023-06-20] MEDS: cefTRIAXone 1,000 MG in sodium chloride 0.9% (plus) 50 ML 100 MG IV (14:06)
--- NOTE | 2023-06-20 14:07 | P.HP_ITS ---
Providers/Chief Complaint Primary Care Provider: Matthew Noel MD Chief Complaint: n/v/d History of Present Illness Hilary Moreno is a 72 year old female with a past medical history of dementia, history of atrial fibrillation, history of DURABILITY ENGINEER shunt history of GERD, history of KRISTIN, who presents to [facility] due to altered mental status. Currently patient is alert to person, not to place, not to time, none of the history was obtained from patient due to acute encephalopathy, history is obtained by at bedside, who tells me that she has been doing well this morning, she was having episodes of confusion, she had episodes of nausea vomiting, so the ED shelter center over to [facility] for evaluation. In the emergency room she was found to have sepsis from UTI, heart rates in the 150s, lactic acid of 5.2 creatinine 1.1, I have asked ER to order a CT scan abdomen pelvis to evaluate for possible obstructive process Review of Systems General: Reports: ROS unobtainable due to mental status Medications/Allergies Home Medications Medication Instructions Recorded Confirmed Last Taken Type metoprolol succinate 25 mg 25 mg PO DAILY@10/10/20 06/20/23 06/20/23 History tablet,extended release 24 hr levothyroxine 25 mcg tablet 25 mcg PO DAILY@10/27/20 06/20/23 06/20/23 History (Synthroid) pantoprazole 40 mg tablet,delayed 40 mg PO DAILY@10/27/20 06/20/23 06/20/23 History release aspirin 81 mg chewable tablet 81 mg PO DAILY@12/14/20 06/20/23 06/20/23 History atorvastatin 40 mg tablet 40 mg PO BEDTIME@12/14/20 06/20/23 06/20/23 History ferrous sulfate 250 mg (50 mg 250 mg PO DAILY #30 tabs 12/16/20 06/20/23 06/20/23 Rx iron) tablet,extended release acetaminophen 650 mg 650 mg PO Q6H PRN Pain 06/20/23 06/20/23 06/20/23 History tablet,extended release apixaban 2.5 mg tablet (Eliquis) 2.5 mg PO BID 06/20/23 06/20/23 06/20/23 History citalopram 10 mg tablet 15 mg PO DAILY 06/20/23 06/20/2306/20/23 History guaifenesin 100 mg/5 mL oral 200 mg PO Q4H PRN Cough 06/20/23 06/20/23 Unknown History liquid (Marlys-Tussin) ondansetron HCl 8 mg tablet 8 mg PO Q12H PRN Nausea 06/20/23 06/20/23 Unknown History Allergies Allergy/AdvReac Type Severity Reaction Status Date / Time lorazepam [From Ativan] Allergy Unknown Verified 06/20/23 11:06 PFSH Acute PFSH: Medical History A-fib Acute CVA (cerebrovascular accident) Cataract Cerebral aneurysm Chronic diarrhea Cognitive decline Dementia with behavioral disturbance GERD (gastroesophageal reflux disease) H/O: lung cancer History of CVA (cerebrovascular accident) History of pulmonary embolism Hyperthyroidism Hypertriglyceridemia KRISTIN (obstructive sleep apnea) Primary osteoarthritis of left knee Vomiting alone Surgical History History of esophagogastroduodenoscopy (EGD) 06/14/2014 S/P aneurysm repair X3 S/P appendectomy S/P arterial stent S/P colonoscopy 06/14/2014- REFLUX ESOGAPHAGITIS- GASTRITIS S/P hemorrhoidectomy S/P hysterectomy S/P ventriculoperitoneal shunt S/P DURABILITY ENGINEER shunt Social History Smoking and tobacco status: never smoked Alcohol intake: never Substance/Drug Use: never Household members: spouse Housing: House Marital status: Vitals/I&O/Wt Last Vital Signs Temp 103.1 F H 06/20/23 10:41 Pulse 130 H 06/20/23 11:51 Resp 24 H 06/20/23 11:51 BP 111/51 06/20/23 11:51 Pulse Ox 94 06/20/23 11:51 O2 Del Method Room Air 06/20/23 11:51 Weight last 48 hrs Weight 77.111 kg Physical Exam Const: COMMON NORMALS: no acute distress GENERAL APPEARANCE: cooperative HENMT: COMMON NORMALS: normocephalic and Normal external nose present HEAD & SCALP: normocephalic FACE & SINUS: normal facial exam NOSE: Normal external nose present Eye: COMMON NORMALS: Equal, round and reactive pupils present, conjunctivae normal and no scleral icterus CONJUNCTIVA: Yes conjunctivae normal PUPIL: Yes Equal, round and reactive pupils present Neck/C-Spine: COMMON NORMALS: full ROM, no lymphadenopathy, no JVD, Thyroid normal and No carotid bruits THYROID: Thyroid normal Chest: COMMONS NORMALS: normal inspection of the chest Resp: COMMON NORMALS: normal respiratory effort, No retractions, No use of accessory muscles and clear to auscultation bilaterally AUSCULTATION: clear to auscultation bilaterally Cardio: COMMON NORMALS: regular rate, regular rhythm, S1 normal heart sound present, S2 normal heart sound present, No murmurs present (Cardio) and Peripheral pulses 2+ throughout RATE: regular rate RHYTHM: regular rhythm HEART SOUNDS: S1 normal heart sound present and S2 normal heart sound present PERIPHERAL PULSES: Peripheral pulses 2+ throughout GI: COMMON NORMALS: Soft to palpation OTHER: Diffusely tender, no guarding, no rebound, rigidity, diminished bowel sounds in all 4 quadrants Neuro: COMMON NORMALS: no sensory deficits noted Skin: COMMON NORMALS: turgor normal and no jaundice GENERAL SKIN EXAM: turgor normal Urinary Catheter Management: Gar: Cath Placed During This Visit: yes Urinary Catheter Date of Insertion: 06/20/23 Urinary Catheter Time of Insertion: 11:55 Sepsis: Is patient septic: Yes Focused sepsis exam performed: Yes Focused sepsis exam: Has mottling of bilateral lower extremities, up to the level of bilateral knees, DP PT pulses diminished bilaterally, cap refill greater than 4 seconds, tachycardic heart rates in the 120s, sinus rhythm, patient has bilateral CVA tenderness, diffuse abdominal tenderness to palpation, encephalopathic Data 06/20/23 11:55 06/20/23 11:55 Micro: Microbiology 06/20/23 11:16 Blood Culture - Preliminary Blood SPECIMEN COLLECTED 06/20/23 11:16 Blood Culture - Preliminary Blood SPECIMEN COLLECTED A&P Assessment and plan (1) Acute pyelonephritis: (2) Sepsis: (3) Resides in [facility] facility: (4) Septic shock: (5) Dementia: Qualifiers: Alzheimer's disease onset: late-onset Dementia behavioral disturbance: with behavioral disturbance Dementia type: Alzheimer's Qualified Code(s): G30.1 - Alzheimer's disease with late onset; F02.81 - Dementia in other diseases classified elsewhere with behavioral disturbance (6) S/P DURABILITY ENGINEER shunt: (7) KRISTIN (obstructive sleep apnea): (8) Lactic acidosis: (9) Metabolic acidosis: (10) Acute encephalopathy: (11) Acute kidney injury: Plan Acute pyelonephritis -Sepsis, given encephalopathy, febrile, tachycardia heart rate 103, temp of 103.1, lactic acid 5.2, creatinine 1.1, WBC 16.3, CT evidence of left pyelonephritis -Concerns for septic shock Plan -Admit to ICU -Is a shelter resident, risk factors for ESBL, start MEROPENEM -Gentle IV hydration -Monitor hemodynamics closely -Maintain MAP greater than 65 -Follow urine culture -Follow blood cultures -Keep n.p.o., aspiration precautions, ? Monitor urine output, monitor creatinine ? Check TSH, continue levothyroxine ? Continue home Eliquis 2.5 mg twice daily, -Protonix for GI prophylaxis -For now patient is a full code Attestations Medical Necessity Statement*: Patient requires hospitalization, inpatient, greater than 2 midnights for acute encephalopathy, sepsis, septic shock, acute left pyelonephritis, metabolic acidosis, lactic acidosis, febrile Coding Level of Care Code Acute Code for [facility] Fwd Diagnoses Acute pyelonephritis N10 Sepsis A41.9 Resides in [facility] facility Z78.9 Septic shock A41.9; R65.21 Dementia G30.1; F02.81 Alzheimer's disease onset: late-onset Dementia behavioral disturbance: with behavioral disturbance Dementia type: Alzheimer's S/P DURABILITY ENGINEER shunt Z98.2 KRISTIN (obstructive sleep apnea) G47.33 Lactic acidosis E87.20 Metabolic acidosis E87.20 Acute encephalopathy G93.40 Acute kidney injury N17.9
--- NOTE | 2023-06-20 14:10 | ECG_ITS ---
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 Measurements Intervals [place] Rate: 112 P: 90 ND: 201 QRS: 43 QRSD: 82 T: 57 QT: 334 QTc: 457 Interpretive Statements SINUS TACHYCARDIA Compared to ECG 06/20/2023 10:47:47 Supraventricular tachycardia no longer present ST (T wave) deviation no longer present Electronically Signed On 06-20-2023 15:16:59 CDT by Joon Almeida M.D. [email or web address] Grouplaird hospitalThe London Distillery Companywilson memorial hospital.[employer]/store/OM/[id number]
[2023-06-20 14:23] LABS: ABG PCO2 36.8 mmHg (35-45); ABG PH Result 7.38 (7.35-7.45); Arterial Blood Gas Hematocrit 32.3 % (37-47); Base Excess ABG -3.1 mmol/L (-2.0-2.0); Blood Gas Operator Identificat AMH; Blood Gas Sample Site Brachial, right; Blood Gas Sample Type Arterial; HCO3 ABG 21.7 mmol/L (22-26); Oxygen Device ROOM AIR; PO2 ABG 59.6 mmHg (80.0-100.0)
[2023-06-20 14:31] LABS: Troponin(5th) Baseline 64 ng/L (0-10)
[2023-06-20 14:48] LABS: C Reactive Protein 32.4 mg/L (0.0-4.9); Cholesterol 118 mg/dL (0-200); Thyroid Stimulating Hormone 2.87 uIU/mL (0.27-4.20); Triglycerides 140 mg/dL (0-150)
[2023-06-20 15:01] LABS: Lactic Acid level (Lactate) 3.2 mmol/L (0.5-2.2)
[2023-06-20] MEDS: pantoprazole 40 mg SDV IVP (15:02)
[2023-06-20 15:10] LABS: Chol HDL Ratio 2.95 mg/dL (0.0-4.40); HDL Cholesterol 40 mg/dL (60-100); LDL Cholesterol Calculated 50 mg/dL (50-129); LDL HDL Ratio 1.25 RATIO (0.00-3.22); Procalcitonin 79.02 ng/mL (0-0.5)
[2023-06-20 15:30] LABS: Erythrocyte Sedimentation Rate 31 mm/hr (0-15)
[2023-06-20 15:52] LABS: Estmated Average Glucose 105; Hemoglobin A1C 5.3 % (4.0-6.0)
--- NOTE | 2023-06-20 16:35 | XRR_ITS ---
PROCEDURE INFORMATION: Exam: XR Chest Exam date and time: 06/20/2023 4:37 PM Age: 72 years old Clinical indication: Device placement; Other: Central line placement not tube placement TECHNIQUE: Imaging protocol: Radiologic exam of the chest. Views: 1 view. COMPARISON: CR XR chest 1V portable [id number] 06/20/2023 10:49 AM FINDINGS: Tubes, catheters and devices: Right central venous catheter tip in the superior vena cava. Lungs: Unremarkable. No consolidation. Pleural spaces: Unremarkable. No pleural effusion. No pneumothorax. Heart/Mediastinum: Unremarkable. No cardiomegaly. Bones/joints: Unremarkable. XR/XR chest 1V [id number] IMPRESSION: Right central venous catheter tip in the superior vena cava.
--- NOTE | 2023-06-20 16:40 | ED_ITS ---
HPI - Nausea/Vomiting/Diarrhea General: Chief complaint: Nausea/Vomiting/Diarrhea Stated complaint: n/v/d Time Seen by Provider: 06/20/23 10:41 Source: EMS Mode of arrival: EMS Limitations: altered mental status History of Present Illness: . [facility] ED PFSH: Medical History A-fib Acute CVA (cerebrovascular accident) Cataract Cerebral aneurysm Chronic diarrhea Cognitive decline Dementia with behavioral disturbance GERD (gastroesophageal reflux disease) H/O: lung cancer History of CVA (cerebrovascular accident) History of pulmonary embolism Hyperthyroidism Hypertriglyceridemia KRISTIN (obstructive sleep apnea) Primary osteoarthritis of left knee Vomiting alone Surgical History History of esophagogastroduodenoscopy (EGD) 06/14/2014 S/P aneurysm repair X3 S/P appendectomy S/P arterial stent S/P colonoscopy 06/14/2014- REFLUX ESOGAPHAGITIS- GASTRITIS S/P hemorrhoidectomy S/P hysterectomy S/P ventriculoperitoneal shunt 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 Social History Smoking and tobacco status: never smoked Alcohol intake: never Substance/Drug Use: never Household members: spouse Housing: House Marital status: Procedures Central Line Placement Right IJ: Time Out Performed: Yes Patient Placed on Monitor/Pulse Ox: Yes Prep: mask, gown and gloves Central Line Prep: Chlorhexidine scrub Local Anesthetic: lidocaine 1% Amount of anesthesia used (mL): 3 Ultrasound Used for Placement: Yes Central Line Lumen Inserted: triple Post Procedure: sutured in place, good blood return, all ports aspirated, flushed, capped and sterile dressing applied Post Procedure X-Ray: tip of catheter in good position and no pneumothorax seen Patient Tolerated Procedure: well Course Vital Signs: Vital signs: Vital Signs Temperature 103.1 F H 06/20/23 10:41 Pulse Rate 112 H 06/20/23 16:11 Respiratory Rate 16 06/20/23 16:11 Blood Pressure 86/53 06/20/23 16:11 Pulse Oximetry 94 06/20/23 16:11 Oxygen Delivery Me thod Room Air 06/20/23 16:11 MDM - Nausea/Vomiting/Diarrhea Medical Decision Making Before patient left the ER for the ICU she became hypotensive I did place a arpita tral line and start her on Levophed blood pressure is improved we will still admit to the ICU Lab Data 06/20/23 11:55 06/20/23 11:55 Laboratory Results WBC 16.3 10^3/uL (4.0-10.0) H 06/20/23 11:55 RBC 4.29 10^6/uL (4.1-5.3) 06/20/23 11:55 Hgb 12.1 g/dL (11.5-15.3) 06/20/23 11:55 Hct 42.3 % (37.0-47.0) 06/20/23 11:55 MCV 98.6 fl (81-99) 06/20/23 11:55 MCH 28.2 pg (28.0-34.0) 06/20/23 11:55 MCHC 28.6 g/dL (30.0-36.0) L 06/20/23 11:55 RDW 13.6 % (12.1-15.1) 06/20/23 11:55 Plt Count 254 10^3/cmm (130-400) 06/20/23 11:55 MPV 8.4 fL (7.4-10.4) 06/20/23 11:55 Neut % (Auto) 95.4 % 06/20/23 11:55 Lymph % (Auto) 2.0 % 06/20/23 11:55 [place] % (Auto) 1.2 % 06/20/23 11:55 Eos % (Auto) 0.0 % 06/20/23 11:55 Baso % (Auto) 0.4 % 06/20/23 11:55 Neut # (Auto) 15.57 10^3/uL (1.8-7.7) H 06/20/23 11:55 Lymph # (Auto) 0.3 10^3/uL (0.8-4.8) L 06/20/23 11:55 [place] # (Auto) 0.2 10^3/uL (0.2-0.9) 06/20/23 11:55 Eos # (Auto) 0.0 10^3/uL (0.0-0.8) 06/20/23 11:55 Baso # (Auto) 0.1 10^3/uL (0.0-0.1) 06/20/23 11:55 Nucleated RBC % (auto) 0 % 06/20/23 11:55 Nucleated RBCs # 0.0 /100WBC 06/20/23 11:55 PT 15.20 SECONDS (12.1-14.9) H 06/20/23 11:55 INR 1.17 (0.8-1.2) 06/20/23 11:55 Sodium 139 mmol/L (136-145) 06/20/23 11:55 Potassium 3.4 mmol/L (3.5-5.1) L 06/20/23 11:55 Chloride 103 mmol/L (98-107) 06/20/23 11:55 Carbon Dioxide 20 mmol/L (22-29) L 06/20/23 11:55 Anion Gap 19.4 (5-19) H 06/20/23 11:55 BUN 16 mg/dL (8-23) 06/20/23 11:55 Creatinine 1.1 mg/dL (0.5-0.9) H 06/20/23 11:55 GFR Calculation Not Reportable 06/20/23 11:55 Glucose 99 mg/dL (65-115) 06/20/23 11:55 Calculated Osmolality 289 mOsm/kg (285-295) 06/20/23 11:55 Lactic Acid 5.2 mmol/L (0.5-2.2) H* 06/20/23 11:55 Calcium 8.6 mg/dL (8.5-10.5) 06/20/23 11:55 Total Bilirubin 0.6 mg/dL (0.15-1.2) 06/20/23 11:55 AST 21 U/L (0-32) 06/20/23 11:55 ALT 14 U/L (0-33) 06/20/23 11:55 Alkaline Phosphatase 128 U/L (35-105) H 06/20/23 11:55 Troponin T Baseline 64 ng/L (0-10) H 06/20/23 11:55 C-Reactive Protein 32.4 mg/L (0.0-4.9) H 06/20/23 11:55 NT-Pro-B Natriuret Pep 1172 pg/mL (0-125) H 06/20/23 11:55 Total Protein 6.7 g/dL (6.6-8.7) 06/20/23 11:55 Albumin 2.9 g/dL (3.5-5.2) L 06/20/23 11:55 Globulin 3.8 g/dL (1.3-4.6) 06/20/23 11:55 Triglycerides 140 mg/dL (0-150) 06/20/23 11:55 Triglycerides Cancelled 06/20/23 11:55 Cholesterol 118 mg/dL (0-200) 06/20/23 11:55 Cholesterol Cancelled 06/20/23 11:55 LDL Cholesterol, Calc 50 mg/dL (50-129) 06/20/23 11:55 LDL Cholesterol, Calc Cancelled 06/20/23 11:55 HDL Cholesterol 40 mg/dL (60-100) L 06/20/23 11:55 HDL Cholesterol Cancelled 06/20/23 11:55 LDL/HDL Ratio 1.25 RATIO (0.00-3.22) 06/20/23 11:55 LDL/HDL Ratio Cancelled 06/20/23 11:55 Cholesterol/HDL Ratio 2.95 mg/dL (0.0-4.40) 06/20/23 11:55 Cholesterol/HDL Ratio Cancelled 06/20/23 11:55 Lipase 43 U/L (13-60) 06/20/23 11:55 Procalcitonin 79.02 ng/mL (0-0.5) H 06/20/23 11:55 TSH 2.87 uIU/mL (0.27-4.20) 06/20/23 11:55 TSH Cancelled 06/20/23 11:55 Urine Color Yellow (Yellow) 06/20/23 11:16 Urine Appearance Cloudy (CLEAR) A 06/20/23 11:16 Urine pH 6 (5-7) 06/20/23 11:16 Ur Specific [place] 1.005 (1.005-1.030) 06/20/23 11:16 Urine Protein 3+ (Negative) H 06/20/23 11:16 Urine Glucose (UA) Norm (Normal) 06/20/23 11:16 Urine Ketones 1+ (Negative) H 06/20/23 11:16 Urine Blood 3+ (Negative) H 06/20/23 11:16 Urine Nitrate Positive (Negative) H 06/20/23 11:16 Urine Bilirubin Neg (Negative) 06/20/23 11:16 Urine Urobilinogen Norm mg/dL (Negative) 06/20/23 11:16 Ur Leukocyte Esterase 2+ (Negative) H 06/20/23 11:16 Urine RBC 5-10 /hpf (0-2) H 06/20/23 11:16 Urine WBC 25-40 /hpf (0-5) H 06/20/23 11:16 Ur Squamous Epith Cells 0-4 /hpf (0-5) H 06/20/23 11:16 Amorphous Sediment Not Reportable 06/20/23 11:16 Urine Bacteria 4+ /hpf (NONE) H 06/20/23 11:16 SARS-CoV-2 Ag (Rapid) negative (Negative) 06/20/23 11:11 Discharge Plan Discharge Patient Disposition: Admitted As Inpatient Admit Provider: Darshan Wade Clinical Impression: Acute pyelonephritis, Sepsis Condition: Stable Coding Level of Care Code ED Trimming Operator for Edith Bailon
--- NOTE | 2023-06-20 17:10 | ECG_ITS ---
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 Measurements Intervals [place] Rate: 105 P: 84 ID: 210 QRS: 23 QRSD: 82 T: 90 QT: 333 QTc: 441 Interpretive Statements SINUS TACHYCARDIA WITH FIRST DEGREE AV BLOCK NONSPECIFIC ST & T-WAVE ABNORMALITY Compared to ECG 06/20/2023 14:10:04 First degree AV block now present T-wave abnormality now present Electronically Signed On 06-20-2023 18:24:06 CDT by Joon Almeida M.D. [email or web address]/store/[id number]
[2023-06-20] MEDS: sodium chloride 0.9% 1,000 ML 100 ML IV (17:50)
[2023-06-20] MEDS: meropenem 1,000 MG in sodium chloride 0.9% (plus) 50 ML 100 MG IV (17:51)
[2023-06-20] MEDS: apixaban 5 mg Tablet 2.5 MG PO (17:55)
[2023-06-20 18:50] LABS: Troponin 5 2HR 71.29 ng/L (0-10)
[2023-06-20 18:56] LABS: Troponin 5 2HR Delta 7.29 ABS# (0-10)
[2023-06-20 20:51] LABS: Troponin 5 6HR 71.19 ng/L (0-10)
[2023-06-20 20:52] LABS: Troponin 5 6HR Delta 7.19 ng/L (0-12)
--- NOTE | 2023-06-20 21:34 | PC.NURSE ---
AMS: Pt is A&Ox1, able to tell me her name and birthday. Pt also stated, your house is so pretty, thank you for having me over and I don't speak much Hungarian anymore after this nurse introduced herself as the patients nurse for the night. Fall risk precautions in place.
[2023-06-21] VITALS (99 sets, daily range): BP systolic 65–152; BP diastolic 35–91; PULSE 60–136; RESP 13–32; TEMP 36.2–36.6; O2SAT 68–100
[2023-06-21] MEDS: meropenem 1,000 MG in sodium chloride 0.9% (plus) 50 ML 100 MG IV ×3 (01:26→17:41)
[2023-06-21] MEDS: sodium chloride 0.9% 1,000 ML 100 ML IV (03:30)
[2023-06-21 04:21] LABS: Basophils # 0.1 10^3/uL (0.0-0.1); Basophils % 0.4 %; Eosinophils # 0.1 10^3/uL (0.0-0.8); Eosinophils % 0.1 %; Hematocrit 32.3 % (37.0-47.0); Hemoglobin 9.9 g/dL (11.5-15.3); Lymphocytes # 1.3 10^3/uL (0.8-4.8); Lymphocytes % 3.8 %; Mean Corpuscular HGB Conc 30.7 g/dL (30.0-36.0); Mean Corpuscular Hemoglobin 27.6 pg (28.0-34.0); Mean Platelet Volume 8.9 fL (7.4-10.4); Monocytes # 1.6 10^3/uL (0.2-0.9); Monocytes % 4.5 %; Neutrophils # 30.94 10^3/uL (1.8-7.7); Nucleated Red Blood Cells % 0 %; Platelet Count 269 10^3/cmm (130-400); Red Blood Count 3.59 10^6/uL (4.1-5.3); Red Cell Distribution Width 13.9 % (12.1-15.1)
[2023-06-21 04:38] LABS: INR 1.34 (0.8-1.2)
[2023-06-21 04:39] LABS: Lactate (Lactic Acid level) 2.2 mmol/L (0.5-2.2)
[2023-06-21 04:50] LABS: NT Pro B Type Natriuretic Pept 8409 pg/mL (0-125)
[2023-06-21 04:55] LABS: White Blood Count 34.8 10^3/uL (4.0-10.0)
[2023-06-21 05:01] LABS: Alanine Aminotransferase 14 U/L (0-33); Alkaline Phosphatase 109 U/L (35-105); Aspartate Amino Transferase 25 U/L (0-32); Blood Urea Nitrogen 17 mg/dL (8-23); Calcium 7.9 mg/dL (8.5-10.5); Carbon Dioxide 22 mmol/L (22-29); Chloride 109 mmol/L (98-107); Globulin 3.3 g/dL (1.3-4.6); Glucose 103 mg/dL (65-115); Magnesium 1.7 mg/dL (1.7-2.3); Osmolality Calculated 296 mOsm/kg (285-295); Phosphorus 2.5 mg/dL (2.5-4.5); Sodium 142 mmol/L (136-145); Total Bilirubin 0.5 mg/dL (0.15-1.2); Total Protein 6.3 g/dL (6.6-8.7)
[2023-06-21 05:03] LABS: Creatinine Clr Calc Pharmacy 47.0506
[2023-06-21 05:06] LABS: Procalcitonin > 100.00 ng/mL (0-0.5)
--- NOTE | 2023-06-21 08:00 | ECG_ITS ---
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 Measurements Intervals [place] Rate: 90 P: 81 MO: 196 QRS: 40 QRSD: 82 T: 90 QT: 369 QTc: 453 Interpretive Statements SINUS RHYTHM Compared to ECG 06/20/2023 18:04:40 Sinus tachycardia no longer present First degree AV block no longer present T-wave abnormality no longer present Electronically Signed On 06-21-2023 16:17:58 CDT by Joon Almeida M.D. [email or web address]/store/[id number]
--- NOTE | 2023-06-21 08:16 | USR_ITS ---
PROCEDURE INFORMATION: Exam: US Retroperitoneal; Complete; Kidneys and Bladder Exam date and time: 06/21/2023 9:41 AM Age: 72 years old Clinical indication: Condition or disease; Kidney or ureter condition; Other: Hydronephrosis TECHNIQUE: Imaging protocol: Real-time ultrasound of the retroperitoneum with image documentation. Complete exam focused on the kidneys and bladder. COMPARISON: CT kidney stone [id number] 06/20/2023 1:11 PM FINDINGS: Right kidney: Normal. No stones. No hydronephrosis. Left kidney: Exophytic simple cyst noted in the left kidney, measuring up to 1.7 cm. No stones identified. No hydronephrosis. Urinary bladder: Not visualized. Patient is reportedly catheterized. US/US renal BI* [id number] IMPRESSION: No acute sonographic findings in the bilateral kidneys. No hydronephrosis.
[2023-06-21] MEDS: enoxaparin 80 mg/0.8 mL Syringe SUBCUT ×2 (08:34→19:33)
[2023-06-21] MEDS: vancomycin 1,000 MG in sodium chloride 0.9% 250 ML 250 MG IV (08:35)
[2023-06-21] MEDS: albumin 25 G/100 ML BAG 60 G IV ×2 (08:35→19:33)
[2023-06-21] MEDS: levothyroxine 100 mcg SDV 12.5 MCG IVP (09:02)
[2023-06-21 09:05] LABS: Cortisol Random 9.27 ug/dL (2.47-19.5)
--- NOTE | 2023-06-21 09:37 | PC.NURSE ---
unable to reach .. sister called for permit to give albumin update given at this time .....
--- NOTE | 2023-06-21 12:00 | PC.NURSE ---
pt diaphoretic and short of breath family here at bedside o2 increased at this time and doctor called ekg done placed on bipap to assist breathing .. brad
--- NOTE | 2023-06-21 12:07 | ECG_ITS ---
[facility] Test Date: 2023-06-21 Pat Name: Hilary Moreno Department: Room: ICU03 Gender: Female Frame Hand: : 1950 Requested By: Darshan Wade Order Number: [id number] Martir MD: Abiola Hannon M.D. Measurements Intervals [place] Rate: 127 P: 75 IN: 155 QRS: 34 QRSD: 91 T: 46 QT: 291 QTc: 423 Interpretive Statements SINUS TACHYCARDIA MINIMAL ST DEPRESSION [0.025+ mV ST DEPRESSION] ABNORMAL RHYTHM ECG Compared to ECG 06/21/2023 07:49:12 ST (T wave) deviation now present Sinus rhythm no longer present Electronically Signed On 06-21-2023 14:20:40 CDT by Abiola Hannon M.D. [id number]
--- NOTE | 2023-06-21 12:19 | XR_ITS ---
WS: [id number] Portable AP semiupright chest, 06/21/2023 Clinical Data: sob Comparison: Portable chest, 06/20/2023 Findings: No nodules, masses or effusions are seen. The heart is normal. The pulmonary vascularity is slightly increased. No pneumonia or pneumothorax is seen. The right internal jugular venous cathete r remains in position. Monitor leads are on the chest wall. The aortic arch and descending thoracic a alvaro show calcification and tortuosity. Impression: 1. Mild pulmonary vascular increase. 2. Atherosclerosis.
[2023-06-21] MEDS: FUROsemide 10 mg/mL SDV 4mL 40 MG IVP (12:37)
[2023-06-21 12:38] LABS: ABG PCO2 40.6 mmHg (35-45); ABG PH Result 7.36 (7.35-7.45); Base Excess ABG -2.6 mmol/L (-2.0-2.0); Blood Gas Allen Test Pos; Blood Gas Operator Identificat CAK; Blood Gas Sample Site Radial, left; Blood Gas Sample Type Arterial; HCO3 ABG 22.7 mmol/L (22-26); Oxygen Device BIPAP; PO2 ABG 84.8 mmHg (80.0-100.0)
[2023-06-21] MEDS: dexmedetomidine 400 MCG in sodium chloride 0.9% (100 ml) 100 ML IV (12:54)
--- NOTE | 2023-06-21 13:15 | PC.SLP ---
Pt unable to participate in ROVING MARKER/dysphagia assessment at this time due to respiratory status.
[2023-06-21] MEDS: pantoprazole 40 mg SDV IVP (14:03)
--- NOTE | 2023-06-21 14:49 | PM.PN ---
Subjective Subjective: Patient was examined multiple times throughout the morning and into the afternoon -Early in the morning she was examined, she is alert to person, not to place, not to time she is able to follow commands, denies any chest pain, no shortness of breath, afebrile throughout the night still on Levophed going at 4, -Patient was reexamined family at bedside, I went over goals of care with family, she is a full code, they want us to continue medical interventions, advised family that she is in septic shock from a UTI, we will continue to monitor -At noon or so, patient went into acute respiratory failure, acute flash pulmonary edema A-fib with RVR on telemetry, heart rates in the 130s -He was given amiodarone bolus with amiodarone drip -Placed on BiPAP -ABG obtained chest x-ray obtained, ABG showing acute hypoxic respiratory failure chest x-ray showing pulmonary vascular congestion -Respiratory therapy eval -Given Lasix -Reexamined, she is put out about 2000 cc, resting more comfortably on BiPAP, placed on Precedex for agitation, she is resting more comfortably, no nasal flaring no intercostal retractions, she is alert to person, to place -Spoke to nursing staff, spoke to family at bedside Vitals/I&O/Wt Last Vital Signs Temp 97.2 F L 06/21/23 08:00 Pulse 105 H 06/21/23 14:45 Resp 31 H 06/21/23 14:00 BP 113/71 06/21/23 14:00 Pulse Ox 99 06/21/23 14:45 O2 Del Method Room Air 06/21/23 07:51 FiO2 60 06/21/23 14:45 06/20/23 06/21/23 06/21/23 22:59 06:59 14:59 Intake Total 2878.816 / 2878.816 1091.851 / 3970.667 636.975 / 636.975 Output Total 250 / 250 950 / 1200 1999 Balance 2628.816 / 2628.816 141.851 / 2770.667 -1363.025 / -1363.025 Weight last 48 hrs Weight 84.64 kg Weight 84.731 kg Weight 77.111 kg Physical Exam Urinary Catheter Management: Gar: Cath Placed During This Visit: yes Urinary Catheter Date of Insertion: 06/20/23 Urinary Catheter Time of Insertion: 11:55 Data 06/21/23 03:40 06/21/23 03:40 Micro: Microbiology 06/20/23 11:16 Blood Culture - Preliminary Blood NEGATIVE TO DATE 06/20/23 11:16 Urine Culture - Preliminary Urine,Clean Catch Gram Negative Rods 06/20/23 11:16 Blood Culture - Preliminary Blood A&P Assessment and plan (1) Atrial fibrillation with RVR: (2) Acute pulmonary edema: (3) CHF exacerbation: (4) Fluid overload: (5) Septic shock: (6) Acute respiratory failure with hypoxia: (7) KRISTIN (obstructive sleep apnea): (8) Lactic acidosis: (9) Metabolic acidosis: (10) Acute encephalopathy: (11) Acute kidney injury: (12) Acute pyelonephritis: (13) Sepsis: (14) Anemia: (15) S/P HELP DESK COORDINATOR shunt: Plan Acute hypoxic respiratory failure -Likely secondary to acute flash pulm edema, diastolic CHF exacerbation, fluid overload, A-fib with RVR -Continue Lasix therapy, will give another 40 mg IV this evening -Monitor urine output -Continue BiPAP therapy -Continue Precedex therapy A-fib with RVR -On therapeutic Lovenox -Amiodarone bolus followed by amiodarone drip Acute septic shock -Secondary to acute pyelonephritis, on 4 Levophed Acute pyelonephritis, UTI -With septic shock, -With encephalopathy, febrile, tachycardia heart rate 103, temp of 103.1, lactic acid 5.2, creatinine 1.1, WBC 16.3, CT evidence of left pyelonephritis Plan -Admit to ICU -Is a custodial resident, risk factors for ESBL, continue meropenem, add vancomycin -Monitor hemodynamics closely -Maintain MAP greater than 65 -Follow urine culture -Follow blood cultures -Keep n.p.o., aspiration precautions, ? Monitor urine output, monitor creatinine ? Check TSH, continue levothyroxine ? Continue home therapeutic Lovenox -Protonix for GI prophylaxis -For now patient is a full code Acute encephalopathy CIPRIANO secondary to sepsis Agitation, Precedex Patient was examined multiple times throughout the morning and into the afternoon -Early in the morning she was examined, she is alert to person, not to place, not to time she is able to follow commands, denies any chest pain, no shortness of breath, afebrile throughout the night still on Levophed going at 4, -Patient was reexamined family at bedside, I went over goals of care with family, she is a full code, they want us to continue medical interventions, advised family that she is in septic shock from a UTI, we will continue to monitor -At noon or so, patient went into acute respiratory failure, acute flash pulmonary edema A-fib with RVR on telemetry, heart rates in the 130s -He was given amiodarone bolus with amiodarone drip -Placed on BiPAP -ABG obtained chest x-ray obtained, ABG showing acute hypoxic respiratory failure chest x-ray showing pulmonary vascular congestion -Respiratory therapy eval -Given Lasix -Reexamined, she is put out about 2000 cc, resting more comfortably on BiPAP, placed on Precedex for agitation, she is resting more comfortably, no nasal flaring no intercostal retractions, she is alert to person, to place -Spoke to nursing staff, spoke to family at bedside Attestations Medical Necessity Statement*: Patient requires hospitalization for septic shock secondary to UTI, with A-fib with RVR with acute flash pulm edema with acute hypoxic respiratory failure, acute encephalopathy Coding Level of Care Code Critical Care >/= 30 minutes Critical care time (in minutes): 50 The high probability of a clinically significant, sudden or life threatening deterioration, as referenced in this documentation, required my full and direct attention, intervention and personal management. The critical care time shown is in addition to time spent performing any reported separately billable procedures and includes the following: [x] Data and vital sign review and interpretation [x] Patient assessment, examination and intervention [x] Medication orders and management [x] Patient/Family updates as able [x] Care Coordination and Documentation. Diagnoses Atrial fibrillation with RVR I48.91 Acute pulmonary edema J81.0 CHF exacerbation I50.9 Fluid overload E87.70 Septic shock A41.9; R65.21 Acute respiratory failure with hypoxia J96.01 KRISTIN (obstructive sleep apnea) G47.33 Lactic acidosis E87.20 Metabolic acidosis E87.20 Acute encephalopathy G93.40 Acute kidney injury N17.9 Acute pyelonephritis N10 Sepsis A41.9 Anemia D64.9 S/P HELP DESK COORDINATOR shunt Z98.2
[2023-06-22] VITALS (89 sets, daily range): BP systolic 89–151; BP diastolic 39–96; PULSE 52–107; RESP 14–31; TEMP 36.2–36.9; O2SAT 90–100
[2023-06-22] MEDS: meropenem 1,000 MG in sodium chloride 0.9% (plus) 50 ML 100 MG IV ×3 (00:28→16:50)
[2023-06-22 00:34] LABS: Acinetobacter baumannii Not Detected (NOT DETECT); Bacteroides fragilis Not Detected (NOT DETECT); CTX-M Not Detected (NOT DETECT); Citrobacter Not Detected (NOT DETECT); Cronobacter sakazakii Not Detected (NOT DETECT); Enterobacter cloacae complex Not Detected (NOT DETECT); Enterobacter non cloacae Not Detected (NOT DETECT); Fusobacterium necrophorum Not Detected (NOT DETECT); Fusobacterium nucleatum Not Detected (NOT DETECT); Haemophilus influenzae Not Detected (NOT DETECT); IMP Resistance Gene Not Detected (NOT DETECT); KPC Resistance Gene Not Detected (NOT DETECT); Klebsiella pneumoniae group Not Detected (NOT DETECT); Morganella morganii Not Detected (NOT DETECT); NDM Resistance Gene Not Detected (NOT DETECT); Neisseria meningitidis Not Detected (NOT DETECT); OXA Resistance Gene Not Detected (NOT DETECT); Pan Candida Not Detected (NOT DETECT); Pan Gram-Positive Not Detected (NOT DETECT); Proteus mirabilis Not Detected (NOT DETECT); Pseudomonas aeruginosa Not Detected (NOT DETECT); Salmonella Not Detected (NOT DETECT); Serratia Not Detected (NOT DETECT); Serratia marcescens Not Detected (NOT DETECT); Stenotrophomonas maltophilia Not Detected (NOT DETECT); VIM Resistance Gene Not Detected (NOT DETECT)
[2023-06-22] MEDS: vancomycin 1,000 MG in sodium chloride 0.9% 250 ML 250 MG IV ×2 (01:58→20:48)
[2023-06-22 04:27] LABS: ABG PCO2 38.3 mmHg (35-45); ABG PH Result 7.41 (7.35-7.45); Arterial Blood Gas Hematocrit 36.2 % (37-47); Base Excess ABG -0.5 mmol/L (-2.0-2.0); Blood Gas Allen Test Pos; Blood Gas Sample Site Radial, right; Blood Gas Sample Type Arterial; HCO3 ABG 24.1 mmol/L (22-26); Oxygen Device BIPAP
[2023-06-22 04:35] LABS: Basophils # 0.1 10^3/uL (0.0-0.1); Basophils % 0.3 %; Eosinophils # 0.2 10^3/uL (0.0-0.8); Eosinophils % 0.6 %; Hematocrit 29.6 % (37.0-47.0); Lymphocytes % 8.3 %; Mean Corpuscular HGB Conc 30.4 g/dL (30.0-36.0); Mean Corpuscular Hemoglobin 27.7 pg (28.0-34.0); Mean Corpuscular Volume 91.1 fl (81-99); Mean Platelet Volume 9.1 fL (7.4-10.4); Monocytes # 1.2 10^3/uL (0.2-0.9); Monocytes % 4.8 %; Neutrophils # 20.38 10^3/uL (1.8-7.7); Neutrophils % 83.6 %; Nucleated Red Blood Cells % 0 %; Platelet Count 193 10^3/cmm (130-400); Red Blood Count 3.25 10^6/uL (4.1-5.3); Red Cell Distribution Width 14.3 % (12.1-15.1); White Blood Count 24.4 10^3/uL (4.0-10.0)
[2023-06-22 04:52] LABS: INR 1.26 (0.8-1.2)
[2023-06-22 04:58] LABS: Lactate (Lactic Acid level) 1.2 mmol/L (0.5-2.2)
[2023-06-22 05:09] LABS: NT Pro B Type Natriuretic Pept 10345 pg/mL (0-125); Procalcitonin 98.88 ng/mL (0-0.5)
[2023-06-22 05:16] LABS: Alanine Aminotransferase 12 U/L (0-33); Albumin Level 3.7 g/dL (3.5-5.2); Alkaline Phosphatase 91 U/L (35-105); Anion Gap 13.7 (5-19); Aspartate Amino Transferase 23 U/L (0-32); Blood Urea Nitrogen 15 mg/dL (8-23); C Reactive Protein 207.5 mg/L (0.0-4.9); Calcium 7.9 mg/dL (8.5-10.5); Carbon Dioxide 25 mmol/L (22-29); Chloride 108 mmol/L (98-107); Globulin 2.2 g/dL (1.3-4.6); Glucose 106 mg/dL (65-115); Magnesium 1.7 mg/dL (1.7-2.3); Osmolality Calculated 297 mOsm/kg (285-295); Phosphorus 2.4 mg/dL (2.5-4.5); Potassium 3.7 mmol/L (3.5-5.1); Sodium 143 mmol/L (136-145); Total Bilirubin 0.6 mg/dL (0.15-1.2); Total Protein 5.9 g/dL (6.6-8.7)
[2023-06-22 05:28] LABS: Creatine Phosphokinase 590 U/L (26-192)
[2023-06-22] MEDS: FUROsemide 10 mg/mL SDV 4mL 40 MG IVP (06:08)
--- NOTE | 2023-06-22 07:00 | XRR_ITS ---
PROCEDURE INFORMATION: Exam: XR Chest Exam date and time: 06/22/2023 7:42 AM Age: 72 years old Clinical indication: Shortness of breath; Additional info: SOB TECHNIQUE: Imaging protocol: Radiologic exam of the chest. Views: 1 view. COMPARISON: 1. CR XR chest 1V portable [id number] 06/21/2023 12:27 PM 2. CR XR chest 1V [id number] 06/20/2023 4:37 PM 3. CR XR chest 1V portable [id number] 06/20/2023 10:49 AM FINDINGS: Tubes, catheters and devices: Stable right internal jugular venous catheter terminates near the superior cavoatrial junction. Lungs: Mild left basilar atelectasis. No consolidation. Pleural spaces: No substantial pleural effusion or pneumothorax. Heart/Mediastinum: Unremarkable. No cardiomegaly. Vasculature: Aortic arch calcification. Bones/joints: Unremarkable. XR/XR chest 1V portable [id number] IMPRESSION: 1. Stable right central IJ catheter. 2. Mild left basilar atelectasis.
[2023-06-22] MEDS: albumin 25 G/100 ML BAG 60 G IV ×2 (07:45→20:47)
[2023-06-22] MEDS: enoxaparin 80 mg/0.8 mL Syringe SUBCUT ×2 (07:45→20:47)
--- NOTE | 2023-06-22 08:54 | PC.NURSE ---
increased urine output with lasix this am .. placed on 3 l nc at this time off precedex gtt at this time answering question and watching tv .. confused to place and time unable to wear scd as increases agitation
[2023-06-22] MEDS: levothyroxine 100 mcg SDV 12.5 MCG IVP (09:11)
--- NOTE | 2023-06-22 09:29 | XRR_ITS ---
PROCEDURE INFORMATION: Exam: XR Abdomen Exam date and time: 06/22/2023 10:50 AM Age: 72 years old Clinical indication: Abdominal pain TECHNIQUE: Imaging protocol: Radiologic exam of the abdomen. Views: Frontal supine view of the abdomen. 1 View. COMPARISON: CT kidney stone [id number] 06/20/2023 1:11 PM FINDINGS: Tubes, catheters and devices: Multiple leads appear to overlie the patient externally. Gastrointestinal tract: No air-filled dilated bowel loops. Intraperitoneal space: No supine evidence of free air. Bones/joints: Degenerative changes along the spine and right hip. Partially visualized left proximal femur hardware. XR/XR KUB portable [id number] IMPRESSION: No acute findings.
[2023-06-22] MEDS: aspirin 81 mg Chew Tablet PO (09:41)
[2023-06-22] MEDS: citalopram 20 mg Tablet 15 MG PO (09:41)
--- NOTE | 2023-06-22 10:38 | PC.NURSE ---
speech therapy here natasha pt at this time remains off bipap at this time watching tv
[2023-06-22] MEDS: amiodarone 200 mg Tablet 400 MG PO ×2 (11:42→17:12)
[2023-06-22] MEDS: pantoprazole 40 mg SDV IVP (13:50)
--- NOTE | 2023-06-22 16:16 | P.PN_ITS ---
Subjective Subjective: Patient was seen this morning, she remains off of Levophed still on amiodarone, she is alert to person, to place, not to time, she can follow commands, she is off BiPAP Vitals/I&O/Wt Last Vital Signs Temp 97.2 F L 06/22/23 08:00 Pulse 93 06/22/23 16:00 Resp 28 H 06/22/23 16:00 BP 130/59 06/22/23 16:00 Pulse Ox 94 06/22/23 16:00 O2 Del Method BiPAP 06/22/23 05:30 FiO2 30 06/22/23 16:00 06/22/23 06/22/23 06/22/23 06:59 14:59 22:59 Intake Total 412.233 / 1587.597 700.898 / 700.898 Output Total 250 / 2800 Balance 162.233 / -1212.403 700.898 / 700.898 Weight last 48 hrs Weight 84.459 kg Weight 84.64 kg Weight 84.731 kg Physical Exam Const: COMMON NORMALS: no acute distress ORIENTATION/CONSCIOUSNESS: Yes awake and Yes oriented to person; not oriented to place and not oriented to time Resp: COMMON NORMALS: normal respiratory effort, No retractions, No use of accessory muscles and clear to auscultation bilaterally AUSCULTATION: clear to auscultation bilaterally Cardio: COMMON NORMALS: regular rate, regular rhythm, S1 normal heart sound present and S2 normal heart sound present RATE: regular rate RHYTHM: regular rhythm HEART SOUNDS: S1 normal heart sound present and S2 normal heart sound present GI: COMMON NORMALS: Normal to inspection, nondistended, normoactive bowel sounds present and non-tender Extremity: COMMON NORMALS: no pedal edema Neuro: SENSORIUM/ORIENTATION: Yes oriented to person, No oriented to place and No oriented to time Psych: COMMON NORMALS: mental status grossly normal Urinary Catheter Management: Gar: Cath Placed During This Visit: yes Urinary Catheter Date of Insertion: 06/20/23 Urinary Catheter Time of Insertion: 11:55 Data 06/22/23 04:25 06/22/23 04:25 Micro: Microbiology 06/20/23 11:16 Urine Culture - Final Urine,Clean Catch Escherichia coli 06/22/23 09:18 Blood Culture - Preliminary Blood SPECIMEN COLLECTED 06/22/23 09:22 Blood Culture - Preliminary Blood SPECIMEN COLLECTED 06/20/23 11:16 Blood Culture - Preliminary Blood Escherichia coli 06/20/23 11:16 Blood Culture - Preliminary Blood A&P Assessment and plan (1) Atrial fibrillation with RVR: (2) Acute pulmonary edema: (3) CHF exacerbation: (4) Fluid overload: (5) Septic shock: (6) Acute respiratory failure with hypoxia: (7) KRISTIN (obstructive sleep apnea): (8) Lactic acidosis: (9) Metabolic acidosis: (10) Acute encephalopathy: (11) Acute kidney injury: (12) Acute pyelonephritis: (13) Sepsis: (14) Anemia: (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 Aspiration precautions,, repeat chest x-ray, KUB -Has received Lasix therapy this morning, continue BiPAP therapy as needed, can wean to nasal cannula -Monitor urine output -Continue BiPAP therapy -Continue Precedex therapy A-fib with RVR -On therapeutic Lovenox -Wean off amiodarone drip to amiodarone 400 twice daily Acute septic shock -Secondary to acute pyelonephritis, off Levophed Acute pyelonephritis, UTI -With septic shock, -With encephalopathy, febrile, tachycardia heart rate 103, temp of 103.1, lactic acid 5.2, creatinine 1.1, WBC 16.3, CT evidence of left pyelonephritis -Blood culture showing gram-negative's Plan -Admit to ICU -Is a snf resident, risk factors for ESBL, continue meropenem, continue vancomycin -Monitor hemodynamics closely -Maintain MAP greater than 65 -Follow urine culture -Follow blood cultures -Aspiration precautions, advance diet as tolerated ? Monitor urine output, monitor creatinine ? Check TSH, continue levothyroxine ? Continue home therapeutic Lovenox -Protonix for GI prophylaxis -For now patient is a full code Acute encephalopathy CIPRIANO secondary to sepsis Agitation, Precedex Patient requires hospitalization for acute hypoxic respiratory failure, A-fib with RVR, septic shock, pyelonephritis, UTI, gram-negative bacteremia Attestations Medical Necessity Statement*: Patient requires hospitalization for A-fib with RVR, septic shock, pyelo nephritis, UTI, respiratory failure, encephalopathy Coding Level of Care Code Critical Care >/= 30 minutes Critical care time (in minutes): 35 The high probability of a clinically significant, sudden or life threatening deterioration, as referenced in this documentation, required my full and direct attention, intervention and personal management. The critical care time shown is in addition to time spent performing any reported separately billable procedures and includes the following: [x] Data and vital sign review and interpretation [x ] Patient assessment, examination and intervention [x] Medication orders and management [x] Patient/Family updates as able [x] Care Coordination and Documentation. 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
[2023-06-22] MEDS: atorvastatin 40 mg Tablet PO (20:46)
[2023-06-23] VITALS (22 sets, daily range): BP systolic 101–142; BP diastolic 40–87; PULSE 75–99; RESP 17; TEMP 36.2–37; O2SAT 89–100
[2023-06-23] MEDS: meropenem 1,000 MG in sodium chloride 0.9% (plus) 50 ML 100 MG IV ×3 (01:14→17:37)
[2023-06-23 04:43] LABS: Basophils % 0.2 %; Eosinophils # 0.2 10^3/uL (0.0-0.8); Hematocrit 28.2 % (37.0-47.0); Hemoglobin 8.6 g/dL (11.5-15.3); Lymphocytes # 1.3 10^3/uL (0.8-4.8); Lymphocytes % 7.9 %; Mean Corpuscular HGB Conc 30.5 g/dL (30.0-36.0); Mean Corpuscular Hemoglobin 27.7 pg (28.0-34.0); Mean Corpuscular Volume 90.7 fl (81-99); Mean Platelet Volume 9.5 fL (7.4-10.4); Monocytes # 0.8 10^3/uL (0.2-0.9); Monocytes % 4.6 %; Neutrophils # 14.25 10^3/uL (1.8-7.7); Neutrophils % 84.6 %; Nucleated Red Blood Cells % 0 %; Platelet Count 192 10^3/cmm (130-400); Red Blood Count 3.11 10^6/uL (4.1-5.3); Red Cell Distribution Width 14.3 % (12.1-15.1); White Blood Count 16.9 10^3/uL (4.0-10.0)
[2023-06-23 05:05] LABS: C Reactive Protein 153.8 mg/L (0.0-4.9)
[2023-06-23 05:08] LABS: Alanine Aminotransferase 9 U/L (0-33); Albumin Level 3.7 g/dL (3.5-5.2); Alkaline Phosphatase 255 U/L (35-105); Anion Gap 10.4 (5-19); Aspartate Amino Transferase 17 U/L (0-32); Blood Urea Nitrogen 14 mg/dL (8-23); Calcium 8.2 mg/dL (8.5-10.5); Carbon Dioxide 28 mmol/L (22-29); Chloride 109 mmol/L (98-107); Creatinine Clr Calc Pharmacy 60.0509; Globulin 2.7 g/dL (1.3-4.6); Glucose 84 mg/dL (65-115); Magnesium 1.7 mg/dL (1.7-2.3); Osmolality Calculated 298 mOsm/kg (285-295); Phosphorus 1.9 mg/dL (2.5-4.5); Potassium 3.4 mmol/L (3.5-5.1); Sodium 144 mmol/L (136-145); Total Bilirubin 0.8 mg/dL (0.15-1.2); Total Protein 6.4 g/dL (6.6-8.7)
[2023-06-23 05:09] LABS: Lactate (Lactic Acid level) 0.8 mmol/L (0.5-2.2)
[2023-06-23 05:14] LABS: NT Pro B Type Natriuretic Pept 9832 pg/mL (0-125); Procalcitonin 47.53 ng/mL (0-0.5)
[2023-06-23 05:25] LABS: Creatine Phosphokinase 314 U/L (26-192)
[2023-06-23] MEDS: albumin 25 G/100 ML BAG 60 G IV (07:52)
[2023-06-23] MEDS: enoxaparin 80 mg/0.8 mL Syringe SUBCUT (07:52)
[2023-06-23] MEDS: amiodarone 200 mg Tablet 400 MG PO ×2 (07:53→17:37)
[2023-06-23] MEDS: aspirin 81 mg Chew Tablet PO (07:53)
[2023-06-23] MEDS: citalopram 20 mg Tablet 15 MG PO (07:53)
[2023-06-23] MEDS: FUROsemide 10 mg/mL SDV 4mL 40 MG IVP (09:16)
[2023-06-23] MEDS: potassium phosphate (mEq K) 40 MEQ in sodium chloride 0.9% (100 ml) 100 ML 27.25 MEQ IV (09:16)
[2023-06-23] MEDS: polyethylene glycol 3350 Pkt 17 gm PO (09:55)
[2023-06-23] MEDS: sennosides-docusate Tablet 1 TAB PO (09:55)
--- NOTE | 2023-06-23 11:20 | PC.SOCIAL ---
IMM update IMM updated, copy Pg 2 left at bedside for patient. Attempted to contact and was unable. Initialled, dated, timed, and placed in chart.
[2023-06-23] MEDS: sucralfate 1 gm Tablet PO ×2 (14:31→23:22)
--- NOTE | 2023-06-23 14:38 | P.PN_ITS ---
Subjective Subjective: Patient seen this morning, she is alert to person, to place, not to time, she sitting up in a chair, denies any chest pain, shortness of breath, abdominal pain, no fevers, no chills, no cough Vitals/I&O/Wt Last Vital Signs Temp 98 F 06/23/23 10:00 Pulse 85 06/23/23 14:00 Resp 25 H 06/22/23 20:15 BP 119/59 06/23/23 14:00 Pulse Ox 97 06/23/23 14:00 O2 Del Method Nasal Cannula 06/23/23 07:32 FiO2 30 06/23/23 14:00 06/22/23 06/23/23 06/23/23 22:59 06:59 14:59 Intake Total 431.827 / 1132.725 650 / 1782.725 736 / 736 Output Total 750 / 750 200 / 950 1550 / 1550 Balance -318.173 / 382.725 450 / 832.725 -814 / -814 Weight last 48 hrs Weight 84.459 kg Weight 84.459 kg Physical Exam Const: COMMON NORMALS: no acute distress ORIENTATION/CONSCIOUSNESS: Yes awake, Yes oriented to person and Yes oriented to place; not oriented to time Resp: COMMON NORMALS: normal respiratory effort, No retractions, No use of accessory muscles and clear to auscultation bilaterally AUSCULTATION: clear to auscultation bilaterally Cardio: COMMON NORMALS: regular rate, regular rhythm, S1 normal heart sound present and S2 normal heart sound present RATE: regular rate RHYTHM: regular rhythm HEART SOUNDS: S1 normal heart sound present and S2 normal heart sound present GI: COMMON NORMALS: Normal to inspection, nondistended, normoactive bowel manish nds present and non-tender Extremity: COMMON NORMALS: no pedal edema Neuro: SENSORIUM/ORIENTATION: Yes oriented to person, Yes oriented to place and No oriented to time Psych: COMMON NORMALS: mental status grossly normal Urinary Catheter Management: Gar: Cath Placed During This Visit: yes Urinary Catheter Date of Insertion: 06/20/23 Urinary Catheter Time of Insertion: 11:55 Data 06/23/23 04:26 06/23/23 04:26 Micro: Microbiology 06/20/23 11:16 Blood Culture - Preliminary Blood Escherichia coli 06/20/23 11:16 Blood Culture - Preliminary Blood Escherichia coli 06/22/23 09:18 Blood Culture - Preliminary Blood NEGATIVE TO DATE 06/22/23 09:22 Blood Culture - Preliminary Blood NEGATIVE TO DATE 06/20/23 11:16 Urine Culture - Final Urine,Clean Catch Escherichia coli A&P Assessment and plan (1) Atrial fibrillation with RVR: (2) Acute pulmonary edema: (3) CHF exacerbation: (4) Fluid overload: (5) Septic shock: (6) Acute respiratory failure with hypoxia: (7) KRISTIN (obstructive sleep apnea): (8) Lactic acidosis: (9) Metabolic acidosis: (10) Acute encephalopathy: (11) Acute kidney injury: (12) Acute pyelonephritis: (13) Sepsis: (14) Anemia: (15) S/P COMPLIANCE LEAD shunt: (16) Gram-negative bacteremia: Plan Acute hypoxic respiratory failure -Likely secondary to acute flash pulm edema, diastolic CHF exacerbation, fluid overload, A-fib with RVR -Possible aspiration? Aspiration precautions, repeat chest x-ray no significant evidence, KUB no significant evidence of obstruction or ileus -1 dose of Lasix this morning, continue BiPAP therapy as needed, can wean to nasal cannula -Monitor urine output -Continue BiPAP therapy -Continue Precedex therapy A-fib with RVR -Switch to Eliquis 5 mg twice daily - amiodarone 400 twice daily Acute septic shock -Secondary to acute pyelonephritis, off Levophed Acute pyelonephritis, UTI, with gram-negative bacteremia -With septic shock, -With encephalopathy, febrile, tachycardia heart rate 103, temp of 103.1, lactic acid 5.2, creatinine 1.1, WBC 16.3, CT evidence of left pyelonephritis -Blood culture showing gram-negative's, E. coli, awaiting culture sensitivities -Repeat blood cultures negative so far Plan -Moved to general medical floors -Is a jail resident, risk factors for ESBL, continue meropenem, stop vancomycin -Monitor hemodynamics closely -Maintain MAP greater than 65 -Follow urine culture -Follow repeat blood cultures -Aspiration precautions, advance diet as tolerated ? Monitor urine output, monitor creatinine ? Check TSH, continue levothyroxine ? Continue home therapeutic Lovenox -Protonix for GI prophylaxis -For now patient is a full code Acute encephalopathy, resolving CIPRIANO secondary to sepsis, resolving Agitation, resolved Plan for today monitor respiratory status closely, de-escalate to Eliquis 5 mg twice daily's, stop vancomycin, follow urine cultures, blood cultures, monitor respiratory status, 1 dose of Lasix, replace potassium and phosphorus IV Attestations Medical Necessity Statement*: Patient requires hospitalization for UTI, pyelonephritis, gram-negative bacteremia, and IV antibiotic therapy, with A-fib, amiodarone, Eliquis, Diagnoses Atrial fibrillation with RVR I48.91 Acute pulmonary edema J81.0 CHF exacerbation I50.9 Fluid overload E87.70 Septic shock A41.9; R65.21 Acute respiratory failure with hypoxia J96.01 KRISTIN (obstructive sleep apnea) G47.33 Lactic acidosis E87.20 Metabolic acidosis E87.20 Acute encephalopathy G93.40 Acute kidney injury N17.9 Acute pyelonephritis N10 Sepsis A41.9 Anemia D64.9 S/P COMPLIANCE LEAD shunt Z98.2 Gram-negative bacteremia R78.81
--- NOTE | 2023-06-23 16:57 | PC.NURSE ---
transfer to 2nd floor room 276 per chair here prior to visit o2 at 2l nc
[2023-06-23] MEDS: pantoprazole DR 40 mg Tablet PO (17:37)
--- NOTE | 2023-06-23 18:26 | PC.NURSE ---
Patient transferred to [facility], VSS, smiling and in a good mood. Sitting up in chair, [place] in place and patent. Room clean and clutter free with call light with in reach.
[2023-06-23] MEDS: atorvastatin 40 mg Tablet PO (20:17)
[2023-06-23] MEDS: apixaban 5 mg Tablet PO (20:17)
[2023-06-23] MEDS: acetaminophen 325 mg Tablet 650 MG PO (23:22)
[2023-06-24] VITALS (8 sets, daily range): BP systolic 112–161; BP diastolic 60–75; PULSE 70–89; RESP 15–18; TEMP 36.6–36.8; O2SAT 90–97; BMI 28.5
[2023-06-24] MEDS: meropenem 1,000 MG in sodium chloride 0.9% (plus) 50 ML 100 MG IV ×2 (01:25→09:46)
[2023-06-24] MEDS: levothyroxine 25 mcg Tablet PO (05:22)
[2023-06-24 05:41] LABS: Basophils # 0.1 10^3/uL (0.0-0.1); Basophils % 0.5 %; Eosinophils # 0.3 10^3/uL (0.0-0.8); Eosinophils % 2.8 %; Hematocrit 31.3 % (37.0-47.0); Hemoglobin 9.6 g/dL (11.5-15.3); Lymphocytes # 1.6 10^3/uL (0.8-4.8); Lymphocytes % 17.1 %; Mean Corpuscular HGB Conc 30.7 g/dL (30.0-36.0); Mean Corpuscular Volume 91.3 fl (81-99); Mean Platelet Volume 9.4 fL (7.4-10.4); Monocytes # 0.7 10^3/uL (0.2-0.9); Monocytes % 7.5 %; Neutrophils # 6.56 10^3/uL (1.8-7.7); Nucleated Red Blood Cells % 0 %; Platelet Count 210 10^3/cmm (130-400); Red Blood Count 3.43 10^6/uL (4.1-5.3); Red Cell Distribution Width 14.2 % (12.1-15.1); White Blood Count 9.2 10^3/uL (4.0-10.0)
[2023-06-24 06:02] LABS: Magnesium 1.8 mg/dL (1.7-2.3); Phosphorus 2.5 mg/dL (2.5-4.5)
[2023-06-24 06:06] LABS: Anion Gap 12.3 (5-19); Blood Urea Nitrogen 13 mg/dL (8-23); Calcium 8.7 mg/dL (8.5-10.5); Carbon Dioxide 30 mmol/L (22-29); Chloride 106 mmol/L (98-107); Glucose 85 mg/dL (65-115); NT Pro B Type Natriuretic Pept 6074 pg/mL (0-125); Osmolality Calculated 299 mOsm/kg (285-295); Potassium 3.3 mmol/L (3.5-5.1); Sodium 145 mmol/L (136-145)
[2023-06-24] MEDS: aspirin 81 mg Chew Tablet PO (09:42)
[2023-06-24] MEDS: pantoprazole DR 40 mg Tablet PO ×2 (09:43→17:34)
[2023-06-24] MEDS: apixaban 5 mg Tablet PO ×2 (09:43→20:25)
[2023-06-24] MEDS: FUROsemide 10 mg/mL SDV 4mL 40 MG IVP (09:43)
[2023-06-24] MEDS: amiodarone 200 mg Tablet 400 MG PO ×2 (09:43→17:34)
[2023-06-24] MEDS: citalopram 20 mg Tablet 15 MG PO (09:43)
[2023-06-24] MEDS: lidocaine 1% 5 ML in potassium chloride premix 100 ML 26.25 ML IV (09:44)
[2023-06-24] MEDS: sennosides-docusate Tablet 1 TAB PO (09:46)
[2023-06-24] MEDS: sucralfate 1 gm Tablet PO ×2 (12:25→23:54)
--- NOTE | 2023-06-24 14:30 | PC.NURSE ---
Mid line placed to right basilic vein. Referred to infusions for PICC placement for IV antibiotics x [address] Wade and provider agrees mid line ok. Right basilic vein assesed, noted to be 5 mm in diameter, straight, and apparent best choice for placement. Using sterile technique and MST, right basilic vein accessed x 1 stick. Mid arm circumference measured 10 cm from right AC 34 cm. Trimmed cath length 10 cm, terminating at axilla. Line secured with stat-lock. Flushes without difficulty and good blood return noted. Insertion site covered with Biopatch and TSM. Report given to bedside nurseUmu.
--- NOTE | 2023-06-24 14:56 | PC.NURSE ---
Central line removed by this nurse. Patient tolerated well. Pressure dressing is in place. Patient appears to be comfortable and doesn't report of any pain or discomfort. No further needs expressed by patient at this time. Will continue to monitor.
--- NOTE | 2023-06-24 17:04 | P.PN_ITS ---
Vitals/I&O/Wt Last Vital Signs Temp 98.3 F 06/24/23 15:48 Pulse 82 06/24/23 15:48 Resp 16 06/24/23 15:48 BP 133/60 06/24/23 15:48 Pulse Ox 91 06/24/23 15:48 O2 Del Method Room Air 06/24/23 15:48 O2 Flow Rate 2 06/24/23 03:54 FiO2 30 06/23/23 14:00 06/24/23 06/24/23 06/24/23 06:59 14:59 22:59 Intake Total 50 / 2295.0909 395 / 395 Output Total 500 / 2050 Balance -450 / 245.0909 395 / 395 Weight last 48 hrs Weight 80.371 kg Weight 84.459 kg Physical Exam Const: COMMON NORMALS: no acute distress and patient oriented x3 Resp: COMMON NORMALS: normal respiratory effort, No retractions, No use of accessory muscles and clear to auscultation bilaterally AUSCULTATION: clear to auscultation bilaterally Cardio: COMMON NORMALS: regular rate, regular rhythm, S1 normal heart sound present and S2 normal heart sound present RATE: regular rate RHYTHM: regular rhythm HEART SOUNDS: S1 normal heart sound present and S2 normal heart sound present GI: COMMON NORMALS: Normal to inspection, nondistended, normoactive bowel sounds present Extremity: COMMON NORMALS: no clubbing, cyanosis or edema and no pedal edema Neuro: COMMON NORMALS: patient oriented x3 Psych: COMMON NORMALS: mental status grossly normal Urinary Catheter Management: Gar: Cath Placed During This Visit: yes Urinary Catheter Date of Insertion: 06/20/23 Urinary Catheter Time of Insertion: 11:55 Data 06/24/23 05:15 06/24/23 05:15 Micro: Microbiology 06/20/23 11:16 Blood Culture - Preliminary Blood Escherichia coli 06/20/23 11:16 Blood Culture - Preliminary Blood Escherichia coli A&P Assessment and plan (1) Atrial fibrillation with RVR: (2) Acute pulmonary edema: (3) CHF exacerbation: (4) Fluid overload: (5) Septic shock: (6) Acute respiratory failure with hypoxia: (7) KRISTIN (obstructive sleep apnea): (8) Lactic acidosis: (9) Metabolic acidosis: (10) Acute encephalopathy: (11) Acute kidney injury: (12) Acute pyelonephritis: (13) Sepsis: (14) Anemia: (15) S/P 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 Aspiration precautions, repeat chest x-ray no significant evidence, KUB no significant evidence of obstruction or ileus -1 dose of Lasix this morning, nasal cannula -Monitor urine output -Continue BiPAP therapy -Continue Precedex therapy A-fib with RVR -Switch to Eliquis 5 mg twice daily - amiodarone 200mg twice daily Acute septic shock, resolved -Secondary to acute pyelonephritis, off Levophed Acute pyelonephritis, UTI, with gram-negative bacteremia -With septic shock, -With encephalopathy, febrile, tachycardia heart rate 103, temp of 103.1, lactic acid 5.2, creatinine 1.1, WBC 16.3, CT evidence of left pyelonephritis -Blood culture showing gram-negative's, E. coli, awaiting culture sensitivities -Repeat blood cultures negative so far Plan -Moved to general medical floors -Is a long term resident, blood culture showing E. coli, pansensitive -We will place PICC line, Rocephin for total 14 days -Monitor hemodynamics closely -Maintain MAP greater than 65 -Follow urine culture -Follow repeat blood cultures -Aspiration precautions, advance diet as tolerated ? Monitor urine output, monitor creatinine ? Can discharge to long term tomorrow -Protonix for GI prophylaxis -For now patient is a full code Acute encephalopathy, resolving CIPRIANO secondary to sepsis, resolving Agitation, resolved Plan for today monitor respiratory status closely, PICC line to be placed, Rocephin 1 g every 24 hours, 1 dose of Lasix Attestations Medical Necessity Statement*: Patient requires hospitalization for respiratory failure, A-fib, septic shock, pyelonephritis Coding Level of Care Code 71994 Moderate MDM includes number and complexity of problems actively addressed during encounter, amount and/or complexity of data reviewed/ordered and described risk of complication, morbidity or mortality of management as docu mented Diagnoses Atrial fibrillation with RVR I48.91 Acute pulmonary edema J81.0 CHF exacerbation I50.9 Fluid overload E87.70 Septic shock A41.9; R65.21 Acute respiratory failure with hypoxia J96.01 KRISTIN (obstructive sleep apnea) G47.33 Lactic acidosis E87.20 Metabolic acidosis E87.20 Acute encephalopathy G93.40 Acute kidney injury N17.9 Acute pyelonephritis N10 Sepsis A41.9 Anemia D64.9 S/P AUTOMATIC EMBROIDERY MACHINE TENDER shunt Z98.2 Gram-negative bacteremia R78.81
[2023-06-24] MEDS: atorvastatin 40 mg Tablet PO (20:25)
[2023-06-25] VITALS (8 sets, daily range): BP systolic 102–124; BP diastolic 67–74; PULSE 81–92; RESP 17–18; TEMP 36.9–37.4; O2SAT 92–97
[2023-06-25] MEDS: levothyroxine 25 mcg Tablet PO (05:20)
[2023-06-25 05:21] LABS: Basophils # 0.1 10^3/uL (0.0-0.1); Basophils % 0.5 %; Eosinophils # 0.3 10^3/uL (0.0-0.8); Eosinophils % 2.9 %; Hematocrit 34.6 % (37.0-47.0); Hemoglobin 10.8 g/dL (11.5-15.3); Lymphocytes # 1.9 10^3/uL (0.8-4.8); Lymphocytes % 18.9 %; Mean Corpuscular HGB Conc 31.2 g/dL (30.0-36.0); Mean Corpuscular Hemoglobin 27.3 pg (28.0-34.0); Mean Corpuscular Volume 87.4 fl (81-99); Mean Platelet Volume 9.3 fL (7.4-10.4); Monocytes # 0.9 10^3/uL (0.2-0.9); Monocytes % 8.8 %; Neutrophils # 6.73 10^3/uL (1.8-7.7); Neutrophils % 67.8 %; Nucleated Red Blood Cells % 0 %; Platelet Count 251 10^3/cmm (130-400); Red Blood Count 3.96 10^6/uL (4.1-5.3); Red Cell Distribution Width 13.9 % (12.1-15.1); White Blood Count 9.9 10^3/uL (4.0-10.0)
[2023-06-25 05:44] LABS: Magnesium 1.8 mg/dL (1.7-2.3); Phosphorus 2.1 mg/dL (2.5-4.5)
[2023-06-25 05:46] LABS: Anion Gap 15.6 (5-19); Blood Urea Nitrogen 18 mg/dL (8-23); Carbon Dioxide 28 mmol/L (22-29); Chloride 101 mmol/L (98-107); Glucose 85 mg/dL (65-115); NT Pro B Type Natriuretic Pept 3549 pg/mL (0-125); Osmolality Calculated 293 mOsm/kg (285-295); Potassium 3.6 mmol/L (3.5-5.1); Sodium 141 mmol/L (136-145)
[2023-06-25] MEDS: apixaban 5 mg Tablet PO (08:01)
[2023-06-25] MEDS: aspirin 81 mg Chew Tablet PO (08:02)
[2023-06-25] MEDS: pantoprazole DR 40 mg Tablet PO (08:02)
[2023-06-25] MEDS: citalopram 20 mg Tablet 15 MG PO (08:02)
[2023-06-25] MEDS: amiodarone 200 mg Tablet 400 MG PO (08:02)
[2023-06-25] MEDS: sennosides-docusate Tablet 1 TAB PO (08:02)
[2023-06-25] MEDS: cefTRIAXone 1,000 MG in sodium chloride 0.9% (plus) 50 ML 100 MG IV (08:03)
[2023-06-25] MEDS: FUROsemide 40 mg Tablet PO (08:16)
--- NOTE | 2023-06-25 10:55 | PC.SOCIAL ---
IMM update IMM updated, copy Pg 2 left at bedside for patient. Attempted to contact and was unable. Initialled, dated, timed, and placed in chart.
--- NOTE | 2023-06-25 11:44 | PM.DCS ---
Discharge Providers Date of Admission: 06/20/23 13:47 Date of Discharge: June 25, 2023 Attending Provider at Admission: Darshan Wade MD Attending Provider at Discharge: Darshan Wade MD Primary Care Provider: Matthew Noel MD Diagnoses at Discharge Discharge Diagnosis (1) Atrial fibrillation with RVR: Status: Acute (2) Acute pulmonary edema: Status: Acute (3) CHF exacerbation: Status: Acute (4) Fluid overload: Status: Acute (5) Septic shock: Status: Acute (6) Acute respiratory failure with hypoxia: Status: Acute (7) KRISTIN (obstructive sleep apnea): Status: Acute (8) Lactic acidosis: Status: Acute (9) Metabolic acidosis: Status: Acute (10) Acute encephalopathy: Status: Acute (11) Acute kidney injury: Status: Resolved (12) Acute pyelonephritis: Status: Acute (13) Sepsis: Status: Acute (14) Anemia: Status: Acute (15) S/P DESKIDDING MACHINE OPERATOR shunt: Status: Acute (16) Gram-negative bacteremia: Status: Acute Reason for Visit Reason for Visit: n/v/d Hospital Course Hospital Course Hilary Moreno is a 72 year old female with a past medical history of dementia, history of atrial fibrillation, history of DESKIDDING MACHINE OPERATOR shunt history of GERD, history of KRISTIN, who presents to [facility] due to altered mental status.? Currently patient is alert to person, not to place, not to time, none of the history was obtained from patient due to acute encephalopathy, history is obtained by at bedside, who tells me that she has been doing well this morning, she was having episodes of confusion, she had episodes of nausea vomiting, so the ED alf center over to [facility] for evaluation.? In the emergency room she was found to have sepsis from UTI, heart rates in the 150s, lactic acid of 5.2 creatinine 1.1, I have asked ER to order a CT scan abdomen pelvis to evaluate for possible obstructive process Patient was admitted to [facility] for acute septic shock, secondary acute pyelonephritis, UTI with E. coli bacteremia, received IV antibiotic therapy, repeat blood cultures negative, overall clinically improved, weaned off pressors, moved to general medical floors, will be discharged on 10 total days of 1 g Rocephin every 24 hours, recheck CBC and CMP in 1 week, midline was placed for 10 days at this they could not get a PICC line, removed thereafter. Patient did develop A-fib with RVR during hospitalization requiring amiodarone drip, switch to p.o. amiodarone, continue amiodarone to 1 mg twice daily for 2 weeks then switch to 200 mg once daily, follow-up with cardiology Patient did develop acute hypoxic respiratory failure during hospitalization likely secondary to flash pulm edema, A-fib with RVR, fluid overload, received diuresis and Precedex and BiPAP therapy during the hospitalization overall clinically improved,, will hold off on further Lasix therapy as of today patient looks euvolemic Physical Exam Const: COMMON NORMALS: no acute distress ORIENTATION/CONSCIOUSNESS: Yes awake, Yes oriented to person and Yes oriented to place; not oriented to time Resp: COMMON NORMALS: normal respiratory effort, No retractions, No use of accessory muscles and clear to auscultation bilaterally AUSCULTATION: clear to auscultation bilaterally Cardio: COMMON NORMALS: regular rate, regular rhythm, S1 normal heart sound present and S2 normal heart sound present RATE: regular rate RHYTHM: regular rhythm HEART SOUNDS: S1 normal heart sound present and S2 normal heart sound present GI: COMMON NORMALS: Normal to inspection, nondistended, normoactive bowel sounds present and non-tender Extremity: COMMON NORMALS: no pedal edema Neuro: SENSORIUM/ORIENTATION: Yes oriented to person, Yes oriented to place and No oriented to time Urinary Catheter Management: Gar: Cath Placed During This Visit: yes Reason for Continuing Indwelling Catheter: Other Urinary Catheter Date of Insertion: 06/20/23 Urinary Catheter Time of Insertion: 11:55 Discharge Data Studies Completed and Pending Completed Studies During Hospitalization Category Date Time Status CT abdomen renal stone [CT kidney stone [id number]] Stat Cat Scan 06/20/23 13:[address] head wo con* [id number] Stat Cat Scan 06/20/23 10:47 Completed XR KUB portable [id number] Routine Exams 06/22/23 09:29 Completed XR chest 1V [id number] Routine Exams 06/20/23 16:35 Completed XR chest 1V portable [id number] Routine Exams 06/21/23 12:19 Completed XR chest 1V portable [id number] Routine Exams 06/22/23 07:00 Completed XR chest 1V portable [id number] Stat Exams 06/20/23 10:41 Completed US renal BI* [id number] Stat Ultrasound 06/21/23 08:16 Completed Pending at discharge Category Date Time Status Basic Metabolic Panel AM LABS Lab 06/26/23 04:00 Ordered Blood Culture Stat Lab 06/20/23 11:16 Results Blood Culture Stat Lab 06/22/23 09:18 Results Complete Blood Count w/Auto AM LABS Lab 06/26/23 04:00 Ordered Magnesium AM LABS Lab 06/26/23 04:00 Ordered NT Pro B Type Natriuretic Pept QAM Lab 06/26/23 06:00 Ordered Phosphorus AM LABS Lab 06/26/23 04:00 Ordered SARS Covid-2 Antigen Routine Lab 06/25/23 10:46 Uncollected Radiology Impressions Renal Ultrasound 06/21/23 08:16 IMPRESSION: No acute sonographic findings in the bilateral kidneys. No hydronephrosis. Chest X-Ray 06/22/23 07:00 IMPRESSION: 1. Stable right central IJ catheter. 2. Mild left basilar atelectasis. KUB X-Ray 06/22/23 09:29 IMPRESSION: No acute findings. Laboratory Results WBC 9.9 10^3/uL (4.0-10.0) 06/25/23 04:49 RBC 3.96 10^6/uL (4.1-5.3) L 06/25/23 04:49 Hgb 10.8 g/dL (11.5-15.3) L 06/25/23 04:49 Hct 34.6 % (37.0-47.0) L 06/25/23 04:49 MCV 87.4 fl (81-99) 06/25/23 04:49 MCH 27.3 pg (28.0-34.0) L 06/25/23 04:49 MCHC 31.2 g/dL (30.0-36.0) 06/25/23 04:49 RDW 13.9 % (12.1-15.1) 06/25/23 04:49 Plt Count 251 10^3/cmm (130-400) 06/25/23 04:49 MPV 9.3 fL (7.4-10.4) 06/25/23 04:49 Neut % (Auto) 67.8 % 06/25/23 04:49 Lymph % (Auto) 18.9 % 06/25/23 04:49 [place] % (Auto) 8.8 % 06/25/23 04:49 Eos % (Auto) 2.9 % 06/25/23 04:49 Baso % (Auto) 0.5 % 06/25/23 04:49 Neut # (Auto) 6.73 10^3/uL (1.8-7.7) 06/25/23 04:49 Lymph # (Auto) 1.9 10^3/uL (0.8-4.8) 06/25/23 04:49 [place] # (Auto) 0.9 10^3/uL (0.2-0.9) 06/25/23 04:49 Eos # (Auto) 0.3 10^3/uL (0.0-0.8) 06/25/23 04:49 Baso # (Auto) 0.1 10^3/uL (0.0-0.1) 06/25/23 04:49 Nucleated RBC % (auto) 0 % 06/25/23 04:49 Nucleated RBCs # 0.0 /100WBC 06/25/23 04:49 ESR 31 mm/hr (0-15) H 06/20/23 14:30 PT 14.60 SECONDS (12.1-14.9) 06/23/23 04:26 INR 1.10 (0.8-1.2) 06/23/23 04:26 Specimen Type Arterial 06/22/23 04:10 Sample Site Radial, right 06/22/23 04:10 ABG pH 7.41 (7.35-7.45) 06/22/23 04:10 ABG pCO2 38.3 mmHg (35-45) 06/22/23 04:10 ABG pO2 129.0 mmHg (80.0-100.0) H 06/22/23 04:10 ABG HCO3 24.1 mmol/L (22-26) 06/22/23 04:10 ABG Base Excess -0.5 mmol/L (-2.0-2.0) 06/22/23 04:10 Momo Test Pos 06/22/23 04:10 Hematocrit 36.2 % (37-47) L 06/22/23 04:10 O2 Delivery Device Bipap 06/22/23 04:10 FiO2 30.0 % 06/22/23 04:10 Electronic Design Engineer ID Alewe 06/22/23 04:10 Sodium 141 mmol/L (136-145) 06/25/23 04:49 Potassium 3.6 mmol/L (3.5-5.1) 06/25/23 04:49 Chloride 101 mmol/L (98-107) 06/25/23 04:49 Carbon Dioxide 28 mmol/L (22-29) 06/25/23 04:49 Anion Gap 15.6 (5-19) 06/25/23 04:49 BUN 18 mg/dL (8-23) 06/25/23 04:49 Creatinine 0.8 mg/dL (0.5-0.9) 06/25/23 04:49 GFR Calculation Not Reportable 06/25/23 04:49 Glucose 85 mg/dL (65-115) 06/25/23 04:49 Estimat Average Glucose 105 06/20/23 14:30 Hemoglobin A1c 5.3 % (4.0-6.0) 06/20/23 14:30 Calculated Osmolality 293 mOsm/kg (285-295) 06/25/23 04:49 Lactic Acid 5.2 mmol/L (0.5-2.2) H* 06/20/23 11:55 Lactic Acid (Sepsis) 3.2 mmol/L (0.5-2.2) H 06/20/23 14:30 Lactate 0.8 mmol/L (0.5-2.2) 06/23/23 04:26 Calcium 9.0 mg/dL (8.5-10.5) 06/25/23 04:49 Phosphorus 2.1 mg/dL (2.5-4.5) L 06/25/23 04:49 Magnesium 1.8 mg/dL (1.7-2.3) 06/25/23 04:49 Total Bilirubin 0.8 mg/dL (0.15-1.2) 06/23/23 04:26 AST 17 U/L (0-32) 06/23/23 04:26 ALT 9 U/L (0-33) 06/23/23 04:26 Alkaline Phosphatase 255 U/L (35-105) H 06/23/23 04:26 Creatine Kinase 314 U/L (26-192) H 06/23/23 04:26 Troponin T Baseline 64 ng/L (0-10) H 06/20/23 11:55 Troponin T 120 Minute 71.29 ng/L (0-10) H 06/20/23 18:19 Delta Troponin T 7.29 ABS# (0-10) 06/20/23 18:19 Troponin T Hi Sens 6Hr 71.19 ng/L (0-10) H 06/20/23 20:23 Troponin T Hi Sens 6Hr Delta 7.19 ng/L (0-12) 06/20/23 20:23 C-Reactive Protein 153.8 mg/L (0.0-4.9) H 06/23/23 04:26 NT-Pro-B Natriuret Pep 3549 pg/mL (0-125) H 06/25/23 04:49 Total Protein 6.4 g/dL (6.6-8.7) L 06/23/23 04:26 Albumin 3.7 g/dL (3.5-5.2) 06/23/23 04:26 Globulin 2.7 g/dL (1.3-4.6) 06/23/23 04:26 Triglycerides 140 mg/dL (0-150) 06/20/23 11:55 Triglycerides Cancelled 06/20/23 11:55 Cholesterol 118 mg/dL (0-200) 06/20/23 11:55 Cholesterol Cancelled 06/20/23 11:55 LDL Cholesterol, Calc 50 mg/dL (50-129) 06/20/23 11:55 LDL Cholesterol, Calc Cancelled 06/20/23 11:55 HDL Cholesterol 40 mg/dL (60-100) L 06/20/23 11:55 HDL Cholesterol Cancelled 06/20/23 11:55 LDL/HDL Ratio 1.25 RATIO (0.00-3.22) 06/20/23 11:55 LDL/HDL Ratio Cancelled 06/20/23 11:55 Cholesterol/HDL Ratio 2.95 mg/dL (0.0-4.40) 06/20/23 11:55 Cholesterol/HDL Ratio Cancelled 06/20/23 11:55 Lipase 43 U/L (13-60) 06/20/23 11:55 Procalcitonin 47.53 ng/mL (0-0.5) H 06/23/23 04:26 TSH 2.87 uIU/mL (0.27-4.20) 06/20/23 11:55 TSH Cancelled 06/20/23 11:55 Random Cortisol 9.27 ug/dL (2.47-19.5) 06/21/23 03:40 Urine Color Yellow (Yellow) 06/20/23 11:16 Urine Appearance Cloudy (CLEAR) A 06/20/23 11:16 Urine pH 6 (5-7) 06/20/23 11:16 Ur Specific [place] 1.005 (1.005-1.030) 06/20/23 11:16 Urine Protein 3+ (Negative) H 06/20/23 11:16 Urine Glucose (UA) Norm (Normal) 06/20/23 11:16 Urine Ketones 1+ (Negative) H 06/20/23 11:16 Urine Blood 3+ (Negative) H 06/20/23 11:16 Urine Nitrate Positive (Negative) H 06/20/23 11:16 Urine Bilirubin Neg (Negative) 06/20/23 11:16 Urine Urobilinogen Norm mg/dL (Negative) 06/20/23 11:16 Ur Leukocyte Esterase 2+ (Negative) H 06/20/23 11:16 Urine RBC 5-10 /hpf (0-2) H 06/20/23 11:16 Urine WBC 25-40 /hpf (0-5) H 06/20/23 11:16 Ur Squamous Epith Cells 0-4 /hpf (0-5) H 06/20/23 11:16 Amorphous Sediment Not Reportable 06/20/23 11:16 Urine Bacteria 4+ /hpf (NONE) H 06/20/23 11:16 SARS-CoV-2 Ag (Rapid) negative (Negative) 06/20/23 11:11 Vitals Last Vital Signs Temp 99.1 F 06/25/23 11:22 Pulse 86 06/25/23 11:22 Resp 18 06/25/23 11:22 BP 115/70 06/25/23 11:22 Pulse Ox 94 06/25/23 11:22 O2 Del Method Nasal Cannula 06/25/23 11:22 O2 Flow Rate 2 06/25/23 08:30 FiO2 30 06/23/23 14:00 Discharge Plan Discharge Patient Disposition: Xfer SNF Condition: Stable Prescriptions: New Pacerone 200 mg Tablet 200 mg PO BID 30 Days Qty: 60 0RF sucralfate 1 gram Tablet 1 g PO Q12H 30 Days Qty: 60 0RF levothyroxine 25 mcg Tablet 25 mcg PO QAM 30 Days Qty: 30 0RF pantoprazole 40 mg Tablet,Delayed Release (Dr/Ec) 40 mg PO BID 30 Days Qty: 60 0RF Eliquis 5 mg Tablet 5 mg PO BID@0900,2100 30 Days Qty: 60 0RF ceftriaxone 1 gram recon soln 1 g IV DAILY 11 Days Qty: 11 0RF Rx Instructions: stop date amiodarone [Pacerone] 200 mg Tablet See Rx Instructions .ROUTE .COMPLEX Qty: 45 0RF Rx Instructions: 200 mg twice daily for 2 weeks followed by 200 mg once daily Continued levothyroxine [Synthroid] 25 mcg tablet 25 mcg PO DAILY@05 pantoprazole 40 mg tablet,delayed release (DR/EC) 40 mg PO DAILY@06 atorvastatin 40 mg Tablet 40 mg PO BEDTIME@20 aspirin 81 mg Tablet,Chewable 81 mg PO DAILY@08 ferrous sulfate 250 mg (50 mg iron) tablet extended release 250 mg PO DAILY Qty: 30 0RF citalopram 10 mg Tablet 15 mg PO DAILY ondansetron HCl 8 mg Tablet 8 mg PO Q12H PRN (Reason: Nausea) Marlys-Tussin 100 mg/5 mL Liquid 200 mg PO Q4H PRN (Reason: Cough) acetaminophen 650 mg Tablet Extended Release 650 mg PO Q6H PRN (Reason: Pain) Discontinued metoprolol succinate 25 mg tablet extended release 24 hr 25 mg PO DAILY@08 Eliquis 2.5 mg tablet 2.5 mg PO BID Discharge Orders: Discharge Order (Routine); Ordered 06/25/23 Ordered By: Darshan Wade Referrals: [facility] [Outside] Matthew Noel MD [Primary Care Provider] - Discharge Diet: Cardiac Discharge Activity: Resume usual activity Activity Restrictions/Additional Instructions: - 1 g Rocephin IV every 24 hours, for 10 remaining doses ? Stop date July 06, 2023 ? Recheck CBC and CMP in 1 week ? Follow-up with primary care provider 1 week ? For patient's amiodarone decreased to 200 mg once daily in 2 weeks ? Follow-up cardiology in 2 weeks Discharge Attestations Time Spent in Discharge Care*: greater than 30 min Status at Discharge: Cognitive status at discharge: mildly impaired cognition, Behavioral status at discharge: cooperative, Quality Metrics Clinical Quality Measures [ No reported AMI, CVA or VTE this stay] Coding Level of Care Code 04869 Total time (in minutes) for Discharge: 50 Diagnoses Atrial fibrillation with RVR I48.91 Acute pulmonary edema J81.0 CHF exacerbation I50.9 Fluid overload E87.70 Septic shock A41.9; R65.21 Acute respiratory failure with hypoxia J96.01 KRISTIN (obstructive sleep apnea) G47.33 Lactic acidosis E87.20 Metabolic acidosis E87.20 Acute encephalopathy G93.40 Acute kidney injury N17.9 Acute pyelonephritis N10 Sepsis A41.9 Anemia D64.9 S/P DESKIDDING MACHINE OPERATOR shunt Z98.2 Gram-negative bacteremia R78.81
[2023-06-25 12:23] LABS: SARS Covid-2 Antigen negative (Negative)
--- NOTE | 2023-06-25 12:37 | PC.NURSE ---
Report called to [facility] at [facility]. Gar removed. Patient tolerated well. IVs removed. Patient tolerated well. Dressings applied to both sites, R A/C and L FA. Meng Arzate called for transport. Patient is ready to discharge just pending ride.
== END 2023-06-25 12:54 | disposition skilled nursing facility (03) | DRG 871 ==
LOC: ER 13:51 → ICU 16:14 → MEDSURG 06-23 17:11
PROVIDERS: Admitting Provider Family Medicine; Emergency Provider Emergency Medicine; PCP Internal Medicine; Visit Provider Family Medicine
DX: A41.9 Sepsis, unspecified organism (principal); G93.41 Metabolic encephalopathy; R65.21 Severe sepsis with septic shock; I50.31 Acute diastolic (congestive) heart failure; J96.01 Acute respiratory failure with hypoxia; N39.0 Urinary tract infection, site not specified; F03.911 Unspecified dementia, unspecified severity, with agitation; N10 Acute pyelonephritis; N17.9 Acute kidney failure, unspecified; E87.20 Acidosis, unspecified; B96.20 Unspecified Escherichia coli [E. coli] as the cause of diseases classified elsewhere; I48.91 Unspecified atrial fibrillation; Z98.2 Presence of cerebrospinal fluid drainage device; K21.9 Gastro-esophageal reflux disease without esophagitis; G47.33 Obstructive sleep apnea (adult) (pediatric); E87.70 Fluid overload, unspecified; Z79.82 Long term (current) use of aspirin; K59.09 Other constipation; D64.9 Anemia, unspecified; Z86.73 Personal history of transient ischemic attack (TIA), and cerebral infarction without residual deficits; Z86.711 Personal history of pulmonary embolism; Z85.118 Personal history of other malignant neoplasm of bronchus and lung
CPT/HCPCS: 36415; 36556; 36573; 36592; 36600; 51702; 70450; 71045; 74018; 74176; 76770; 80048; 80053; 80061; 81001; 82533; 82550; 82803; 83036; 83605; 83690; 83735; 83880; 84100; 84145; 84443; 84484; 85025; 85610; 85651; 86140; 87040; 87077; 87086; 87150; 87186; 87205; 87426; 92523; 92526; 92610; 93005; 94660; 94664; 96365; 96367; 96372; 96375; 96376; 97161; 99285; A4222; C1751; C9113; J0131; J0282; J0696; J1650; J1940; J2185; J2405; J3370; J3480; J3490; J7030; J7040; J7050; J7060; P9046

== ENCOUNTER 2024-04-24 01:32 | Emergency (ER) | payer MEDICARE, SELFPAY ==
[2024-04-24] VITALS (14 sets, daily range): BP systolic 96–174; BP diastolic 13–98; PULSE 103–145; RESP 18–29; TEMP 36.7; O2SAT 87–100; BMI 32.3
--- NOTE | 2024-04-24 01:35 | XRR_ITS ---
PROCEDURE INFORMATION: Exam: XR Abdomen Exam date and time: 04/24/2024 2:01 AM Age: 73 years old Clinical indication: Abdominal tenderness; Additional info: Abdominal pain TECHNIQUE: Imaging protocol: Radiologic exam of the abdomen. Views: 2 Views. Upright and supine views. COMPARISON: CT kidney stone [id number] 06/20/2023 1:11 PM FINDINGS: Tubes, catheters and devices: CARE COORDINATION MANAGER shunt is in place. Gastrointestinal tract: Paucity of small bowel gas. Large bowel is prominent and predominantly air-filled, dilated although within normal limits. Intraperitoneal space: Normal. No free air. Bones/joints: Unremarkable for age. XR/XR acute abdomen series [id number] IMPRESSION: No acute findings. Please refer to the CT abdomen and pelvis with contrast for definitive characterization.
--- NOTE | 2024-04-24 01:41 | W.ED.ABDPA2 ---
HPI - Abdominal Pain General: Chief Complaint: Abdominal Pain Stated Complaint: ABD PAIN Time Seen by Provider: 04/24/24 01:32 History of Present Illness: 73-year-old female with a history of dementia who presents to the emergency room with vomiting by ambulance. Apparently started having some vomiting earlier in the evening. Initially appeared to just be food but now they are concerned that it might be fecal matter and that she might have a small bowel obstruction. She is complaining of diffuse abdominal pain. [facility] ED PFSH: Medical History A-fib Acute CVA (cerebrovascular accident) Cataract Cerebral aneurysm Chronic diarrhea Cognitive decline Dementia with behavioral disturbance GERD (gastroesophageal reflux disease) H/O: lung cancer History of CVA (cerebrovascular accident) History of pulmonary embolism Hyperthyroidism Hypertriglyceridemia KRISTIN (obstructive sleep apnea) Primary osteoarthritis of left knee Vomiting alone Surgical History History of esophagogastroduodenoscopy (EGD) 06/14/2014 S/P aneurysm repair X3 S/P appendectomy S/P arterial stent S/P colonoscopy 06/14/2014- REFLUX ESOGAPHAGITIS- GASTRITIS S/P hemorrhoidectomy S/P hysterectomy S/P ventriculoperitoneal shunt 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 Skin: Warm, dry. Head: Normocephalic, atraumatic. Neck: Supple, trachea midline. Eye: Extraocular movements are intact. Ears, nose, mouth and throat: Dry oral mucosa Cardiovascular: Regular, Normal peripheral perfusion. Respiratory: Lungs are clear to auscultation, respirations are non-labored, breath sounds are equal, Symmetrical chest wall expansion. Gastrointestinal: Some distention, moderate diffuse tenderness. Musculoskeletal: Normal ROM, no deformity. Neurological: Alert and oriented, No focal neurological deficit observed. Psychiatric: Cooperative, appropriate mood & affect. Course Vital Signs: Vital signs: Vital Signs Temperature 98.0 F 04/24/24 01:32 Pulse Rate 108 H 04/24/24 04:00 Respiratory Rate 20 H 04/24/24 04:00 Blood Pressure 157/86 04/24/24 04:00 Pulse Oximetry 95 04/24/24 04:00 Oxygen Delivery Me thod Nasal Cannula 04/24/24 04:00 Oxygen Flow Rate 2 04/24/24 04:00 MDM - Abdominal Pain Medical Decision Making Medical decision making: Differential diagnosis including but not limited to and based on the above HPI, review of systems and physical exam: Orders placed to evaluate differential diagnosis based on the above differential, HPI and physical exam Acute abdominal series: chest x-ray: No acute process. No obvious infiltrates. No pneumothorax. No cardiomegaly. This was reviewed and interpreted by myself the emergency room physician Abdomen x-ray: Distended what appears to be colon. No obvious small bowel obstruction. No obvious free air.. This was reviewed and interpreted by myself the emergency room physician. Lab Review: Laboratory results were reviewed and interpreted by myself the emergency room physician. Considerable leukocytosis with a white count of 18,000. BUN and creatinine are normal at 14 and 1.0. Her sodium is 146. CRP is elevated at 22. Lactate is elevated at 2.[address] of the abdomen pelvis with contrast: Patient has a 6.6 mm left urinary stone. This is fairly proximal. This was reviewed and interpreted by myself the emergency room physician. I also reviewed the radiology report. I reviewed the patient's medical record. Reexamination: Patient appears in less distress. No increased work of breathing. No altered mental status. Vomiting has been controlled with Zofran. Assessment and plan: Ureterolithiasis -IV fluids. IV Zofran. IV Rocephin. - Discharged home - Discussed findings and plan with patient. Answered any questions. - All laboratory values were reviewed and interpreted personally by myself, the ER physician - All imaging was reviewed and interpreted personally by myself, the ER physician. - Evaluation and treatment of this problem were appropriate in the emergency setting Lab Data 04/24/24 02:00 04/24/24 02:00 Labs/Radiology: Radiology Impressions Chest/Abdomen X-ray 04/24/24 01:35 IMPRESSION: No acute findings. Please refer to the CT abdomen and pelvis with contrast for definitive characterization. Abdomen/Pelvis CT 04/24/24 02:18 IMPRESSION: 1. Obstructing left urinary stone just beyond the left ureteropelvic junction. Superimposed infection cannot be ruled out. Additional details are highlighted above. 2. Additional nonobstructing nephroliths at the left lower renal pole. 3. Central left lung base ground-glass which may represent air trapping, small airways disease, superimposed infection is not ruled out. Correlate clinically. 4. Additional nonacute findings as above. COMMENTS: Consistent with the [place] [employer]'s Incidental Findings Committee white paper (J Am Miguel Radiol 2018): Any incidental renal lesion less than 1 cm or classified as too small to characterize, or any incidental cystic renal lesion characterized as simple-appearing, is likely benign. No follow-up imaging is recommended for these lesions per consensus recommendations based on imaging criteria. Laboratory Results WBC 18.53 10^3/uL (3.29-11.43) H 04/24/24 02:00 RBC 4.76 10^6/uL (3.85-5.65) 04/24/24 02:00 Hgb 13.10 g/dL (11.27-16.99) 04/24/24 02:00 Hct 41.5 % (36-47) 04/24/24 02:00 MCV 87.2 fl (85-98) 04/24/24 02:00 MCH 27.5 pg (27-33) 04/24/24 02:00 MCHC 31.6 g/dL (30-55) 04/24/24 02:00 RDW 13.2 % (12.1-15.1) 04/24/24 02:00 Plt Count 315 10^3/cmm (157-399) 04/24/24 02:00 MPV 8.9 fL (7.4-10.4) 04/24/24 02:00 Neut % (Auto) 88.1 % 04/24/24 02:00 Lymph % (Auto) 6.6 % 04/24/24 02:00 [place] % (Auto) 3.9 % 04/24/24 02:00 Eos % (Auto) 0.2 % 04/24/24 02:00 Baso % (Auto) 0.3 % 04/24/24 02:00 Neut # (Auto) 16.33 10^3/uL (1.8-7.7) H 04/24/24 02:00 Lymph # (Auto) 1.2 10^3/uL (0.8-4.8) 04/24/24 02:00 [place] # (Auto) 0.7 10^3/uL (0.2-0.9) 04/24/24 02:00 Eos # (Auto) 0.0 10^3/uL (0.0-0.8) 04/24/24 02:00 Baso # (Auto) 0.1 10^3/uL (0.0-0.1) 04/24/24 02:00 Nucleated RBC % (auto) 0 % 04/24/24 02:00 Nucleated RBCs # 0.0 /100WBC 04/24/24 02:00 Sodium 146 mmol/L (136-145) H 04/24/24 02:00 Potassium 4.2 mmol/L (3.5-5.1) 04/24/24 02:00 Chloride 108 mmol/L (98-107) H 04/24/24 02:00 Carbon Dioxide 25 mmol/L (22-29) 04/24/24 02:00 Anion Gap 17.2 (5-19) 04/24/24 02:00 BUN 14 mg/dL (8-23) 04/24/24 02:00 Creatinine 1.0 mg/dL (0.5-0.9) H 04/24/24 02:00 GFR Calculation Not Reportable 04/24/24 02:00 Glucose 139 mg/dL (65-115) H 04/24/24 02:00 Calculated Osmolality 305 mOsm/kg (285-295) H 04/24/24 02:00 Lactic Acid 2.3 mmol/L (0.5-2.2) H 04/24/24 02:00 Calcium 9.1 mg/dL (8.5-10.5) 04/24/24 02:00 Total Bilirubin 0.3 mg/dL (0.15-1.2) 04/24/24 02:00 AST 18 U/L (0-32) 04/24/24 02:00 ALT 16 U/L (0-33) 04/24/24 02:00 Alkaline Phosphatase 210 U/L (35-105) H 04/24/24 02:00 C-Reactive Protein 22.4 mg/L (0.0-4.9) H 04/24/24 02:00 Total Protein 7.9 g/dL (6.6-8.7) 04/24/24 02:00 Albumin 3.9 g/dL (3.5-5.2) 04/24/24 02:00 Globulin 4.0 g/dL (1.3-4.6) 04/24/24 02:00 Lipase 17 U/L (13-60) 04/24/24 02:00 All radiology interpretation(s) finalized by discharge Discharge Plan Discharge Patient Disposition: Home Clinical Impression: Ureterolithiasis Condition: Stable Prescriptions: New hydrocodone-acetaminophen 5-325 mg tablet 1 tab PO Q6H PRN (Reason: pain) Qty: 20 0RF ondansetron 8 mg tablet,disintegrating 8 mg PO .q6 PRN (Reason: nausea and vomiting) Qty: 14 0RF Flomax 0.4 mg capsule 0.4 mg PO DAILY Qty: 30 0RF cephalexin 500 mg capsule 500 mg PO BID 10 Days Qty: 20 0RF No Action levothyroxine [Synthroid] 25 mcg tablet 25 mcg PO DAILY@05 pantoprazole 40 mg tablet,delayed release (DR/EC) 40 mg PO DAILY@06 atorvastatin 40 mg Tablet 40 mg PO BEDTIME@20 aspirin 81 mg Tablet,Chewable 81 mg PO DAILY@08 ferrous sulfate 250 mg (50 mg iron) tablet extended release 250 mg PO DAILY Qty: 30 0RF citalopram 10 mg Tablet 15 mg PO DAILY ondansetron HCl 8 mg Tablet 8 mg PO Q12H PRN (Reason: Nausea) Marlys-Tussin 100 mg/5 mL Liquid 200 mg PO Q4H PRN (Reason: Cough) acetaminophen 650 mg Tablet Extended Release 650 mg PO Q6H PRN (Reason: Pain) Pacerone 200 mg Tablet See Rx Instructions .ROUTE .COMPLEX Qty: 45 0RF Rx Instructions: 200 mg twice daily for 2 weeks followed by 200 mg once daily Discharge Orders: Discharge ED (Routine); Ordered 04/24/24 Ordered By: Paula White Referrals: Hunter Castelan [Referring] - 4-7 days (Please follow-up with Dr. Castelan or urologist of your choice within the next 5 to 7 days.) Matthew Noel MD [Primary Care Provider] - Discharge Diet: Usual diet Discharge Activity: Increase activity as tolerated Patient Instructions: Kidney Stones (ED), How to Strain Your Urine (ED), Opioid Safety, Pain Management Activity Restrictions/Additional Instructions: Call for appointment with urology. If fever (temp >100.4) develops return to the emergency room immediately, as this is an emergency. Take nausea medication prior to taking pain medications. You have been screened and evaluated and felt safe for discharge. Health conditions do change or evolve sometimes and as such it is important that you follow up with your Primary Doctor to be re checked, 3-5 days is a general good time frame for follow up. You are always welcome to return to the ED for re assessment if your symptoms are worsening or you have new concerns Coding Level of Care Code ED [employer] for Edith Bailon
[2024-04-24 02:09] LABS: Basophils # 0.1 10^3/uL (0.0-0.1); Basophils % 0.3 %; Eosinophils % 0.2 %; Hematocrit 41.5 % (36-47); Lymphocytes # 1.2 10^3/uL (0.8-4.8); Lymphocytes % 6.6 %; Mean Corpuscular HGB Conc 31.6 g/dL (30-55); Mean Corpuscular Hemoglobin 27.5 pg (27-33); Mean Corpuscular Volume 87.2 fl (85-98); Mean Platelet Volume 8.9 fL (7.4-10.4); Monocytes # 0.7 10^3/uL (0.2-0.9); Monocytes % 3.9 %; Neutrophils # 16.33 10^3/uL (1.8-7.7); Neutrophils % 88.1 %; Nucleated Red Blood Cells % 0 %; Platelet Count 315 10^3/cmm (157-399); Red Blood Count 4.76 10^6/uL (3.85-5.65); Red Cell Distribution Width 13.2 % (12.1-15.1); White Blood Count 18.53 10^3/uL (3.29-11.43)
--- NOTE | 2024-04-24 02:18 | CTR_ITS ---
PROCEDURE INFORMATION: Exam: CT Abdomen And Pelvis With Contrast Exam date and time: 04/24/2024 2:40 AM Age: 73 years old Clinical indication: Abdominal tenderness and nausea and vomiting; Prior surgery; Surgery date: 6+ months; Surgery type: Hyst; Additional info: Abdominal pain, probable small bowel obstruction TECHNIQUE: Imaging protocol: Computed tomography of the abdomen and pelvis with contrast. Radiation optimization: All CT scans at this facility use at least one of these dose optimization techniques: automated exposure control; mA and/or kV adjustment per patient size (includes targeted exams where dose is matched to clinical indication); or iterative reconstruction. Contrast material: OMNI 350; Contrast volume: 100 ml; Contrast route: INTRAVENOUS (IV); COMPARISON: CT kidney stone [id number] 06/20/2023 1:11 PM RADIATION DOSE METRICS: Total DLP (mGy-cm): 962.8 FINDINGS: Tubes, catheters and devices: Nonspecific midline abdominal catheter, may be used for peritoneal dialysis, correlate clinically. Lungs: Central ground-glass of the left lung base. Heart: Base of heart is unremarkable as visualized. Liver: Normal. No mass. Gallbladder and bile ducts: Normal. No calcified stones. No ductal dilation. Pancreas: Fatty atrophy of the pancreatic head, similar and unchanged to prior comparison. Spleen: Normal. No splenomegaly. Adrenal glands: Normal. No mass. Kidneys and ureters: Multiple nonobstructive left renal stones. Benign left renal cyst. Delayed left nephrogram. Moderate left hydronephrosis, moderate left pelviectasis. Just beyond the left ureteropelvic junction there is a calcified urinary stone which measures 6.6 mm (series 4, image 44). Left perinephric stranding. Stomach and bowel: Rectal wall thickening, mild, likely due to underdistention. Mild descending and sigmoid colonic diverticulosis. Appendix: Appendix is not confidently visualized, no secondary evidence of appendicitis. Intraperitoneal space: Stable central mesenteric root fat stranding. Vasculature: Severe calcified atherosclerotic disease of the visualized aorta and its lower abdominal branches. 25-50% stenosis of the proximal left renal artery. Multiple calcified pelvic phleboliths are noted. Lymph nodes: Unremarkable. No enlarged lymph nodes. Urinary bladder: Bladder is decompressed with circumferential wall thickening. Reproductive: Status post hysterectomy. Bones/joints: Partially evaluated intramedullary larry and screw fixation of the proximal left femur. Diffuse degenerative change of the visualized osseous structures. Soft tissues: Unremarkable. CT/CT abdomen pelvis w con* [id number] IMPRESSION: 1. Obstructing left urinary stone just beyond the left ureteropelvic junction. Superimposed infection cannot be ruled out. Additional details are highlighted above. 2. Additional nonobstructing nephroliths at the left lower renal pole. 3. Central left lung base ground-glass which may represent air trapping, small airways disease, superimposed infection is not ruled out. Correlate clinically. 4. Additional nonacute findings as above. COMMENTS: Consistent with the [place] [employer]'s Incidental Findings Committee white paper (J Am Miguel Radiol 2018): Any incidental renal lesion less than 1 cm or classified as too small to characterize, or any incidental cystic renal lesion characterized as simple-appearing, is likely benign. No follow-up imaging is recommended for these lesions per consensus recommendations based on imaging criteria.
[2024-04-24 02:26] LABS: Alanine Aminotransferase 16 U/L (0-33); Albumin Level 3.9 g/dL (3.5-5.2); Alkaline Phosphatase 210 U/L (35-105); Anion Gap 17.2 (5-19); Aspartate Amino Transferase 18 U/L (0-32); Blood Urea Nitrogen 14 mg/dL (8-23); C Reactive Protein 22.4 mg/L (0.0-4.9); Calcium 9.1 mg/dL (8.5-10.5); Carbon Dioxide 25 mmol/L (22-29); Chloride 108 mmol/L (98-107); Glucose 139 mg/dL (65-115); Lactic Sepsis W/Reflex 2.3 mmol/L (0.5-2.2); Lipase 17 U/L (13-60); Osmolality Calculated 305 mOsm/kg (285-295); Potassium 4.2 mmol/L (3.5-5.1); Sodium 146 mmol/L (136-145); Total Bilirubin 0.3 mg/dL (0.15-1.2); Total Protein 7.9 g/dL (6.6-8.7)
[2024-04-24 02:33] LABS: Creatinine Clr Calc Pharmacy 55.1481
[2024-04-24] MEDS: sodium chloride 0.9% 1,000 ML 999 ML IV ×2 (02:51→05:59)
[2024-04-24] MEDS: ondansetron 2 mg/ML SDV 2 mL 8 MG IVP (02:51)
[2024-04-24] MEDS: iohexol 350 mg/mL 500 mL Btl (per mL) IV (03:07)
[2024-04-24 03:53] LABS: Reflex Lactate Order REFLEX LACTIC ORDERD
[2024-04-24 05:13] LABS: Bilirubin Urine Neg (Negative); Blood Urine Neg (Negative); Glucose Urine UA Norm (Normal); Ketones Urine 1+ (Negative); Leukocyte Esterase Urine Negative (Negative); Nitrate Urine Negative (Negative); Protein Urine Trace (Negative); Urine Appearance Cloudy (CLEAR); Urine Color Yellow (Yellow); Urobilinogen Urine Neg (Negative); pH Urine 6.5 (5-7)
[2024-04-24 05:14] LABS: Add Urine Culture? Yes; Bacteria Urine 4+ /hpf; Mucus Urine 1+ /hpf; RBC Urine 0-4 /hpf (0-2); Squamous Epithelial Cell Urine 0-4 /hpf (0-5); WBC Urine 0-4 /hpf (0-5)
[2024-04-24] MEDS: cefTRIAXone 1,000 MG in sodium chloride 0.9% (plus) 50 ML 100 MG IV (05:20)
[2024-04-24] MEDS: morphine 4 mg/mL SDV 1 mL IVP (05:58)
== END 2024-04-24 11:53 | disposition home or self-care (01) ==
PROVIDERS: Emergency Provider Emergency Medicine; PCP Internal Medicine
DX: N20.1 Calculus of ureter (principal); Z79.82 Long term (current) use of aspirin; Z86.73 Personal history of transient ischemic attack (TIA), and cerebral infarction without residual deficits; F03.90 Unspecified dementia, unspecified severity, without behavioral disturbance, psychotic disturbance, mood disturbance, and anxiety; Z85.118 Personal history of other malignant neoplasm of bronchus and lung
CPT/HCPCS: 74022; 74177; 80053; 81001; 83605; 83690; 85025; 86140; 87040; 87077; 87086; 87186; 87205; 96361; 96365; 96375; 99285; J0696; J2270; J2405; J7030; Q9967

== ENCOUNTER 2024-04-25 06:37 | Emergency (ER) | payer MEDICARE, OTHER, SELFPAY ==
[2024-04-25] VITALS (25 sets, daily range): BP systolic 85–126; BP diastolic 41–62; PULSE 94–137; RESP 12–24; TEMP 39; O2SAT 96–100
--- NOTE | 2024-04-25 06:43 | XRR_ITS ---
PROCEDURE INFORMATION: Exam: XR Chest Exam date and time: 04/25/2024 6:55 AM Age: 73 years old Clinical indication: Shortness of breath; Additional info: SOB TECHNIQUE: Imaging protocol: Radiologic exam of the chest. Views: 1 view. COMPARISON: CR XR chest 1V portable [id number] 06/22/2023 7:42 AM FINDINGS: Lungs: No CHF/pulmonary edema. Mild left lateral lower lung opacities, probably not significantly changed. Therefore, this may could represent atelectasis/scarring, although pneumonitis is also possible. Please correlate clinically. Visible right lung appears essentially clear. Pleural spaces: No visible pneumothorax. No definite pleural fluid. Heart/Mediastinum: Heart size appears upper range of normal. Bones/joints: No significant acute finding. XR/XR chest 1V portable [id number] IMPRESSION: 1. Mild left lower lung opacities, see above discussion. 2. Other findings discussed above.
--- NOTE | 2024-04-25 06:50 | W.ED.FEVER ---
HPI - Fever General: Chief Complaint: Fever Stated Complaint: Sepsis Time Seen by Provider: 04/25/24 06:40 History of Present Illness: 73-year-old female brought in from the long-term. Patient has a known urinary tract infection with obstructing kidney stone. She was seen yesterday started on Keflex 500 mg twice daily. Patient has gotten suddenly worse is more febrile. Patient is from the long-term. She does have baseline confusion that seems to be little bit worse. She is also mildly tachycardic and febrile upon arrival. EMS reports that upon arrival patient also had low oxygen and was placed on oxygen given albuterol which seemed to improve and help her wheezing. Patient is a DNR. Review of Systems General: Reports: Other (Limited to history provided by EMS. Patient has baseline confusion) Const: Reports: fever(s) Resp: Reports: non-productive cough and wheezing PFSH ED PFSH: Medical History A-fib Acute CVA (cerebrovascular accident) Cataract Cerebral aneurysm Chronic diarrhea Cognitive decline Dementia with behavioral disturbance GERD (gastroesophageal reflux disease) H/O: lung cancer History of CVA (cerebrovascular accident) History of pulmonary embolism Hyperthyroidism Hypertriglyceridemia KRISTIN (obstructive sleep apnea) Primary osteoarthritis of left knee Vomiting alone Surgical History History of esophagogastroduodenoscopy (EGD) 06/14/2014 S/P aneurysm repair X3 S/P appendectomy S/P arterial stent S/P colonoscopy 06/14/2014- REFLUX ESOGAPHAGITIS- GASTRITIS S/P hemorrhoidectomy S/P hysterectomy S/P ventriculoperitoneal shunt 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 Social History Smoking and tobacco/nicotine status: never used tobacco/nicotine Alcohol intake: never Substance/Drug Use: never Household members: spouse Housing: House Marital status: Physical Exam Const: GENERAL APPEARANCE: ill appearing Resp: AUSCULTATION: wheezes Cardio: COMMON NORMALS: regular rhythm RATE: tachycardic RHYTHM: regular rhythm GI: COMMON NORMALS: Soft to palpation PALPATION: Yes Soft to palpation Neuro: OTHER: Baseline confusion, Skin: COMMON NORMALS: no rashes or lesions noted GENERAL SKIN EXAM: no rashes or lesions noted Course Vital Signs: Vital signs: Vital Signs Temperature 102.2 F H 04/25/24 06:42 Pulse Rate 98 04/25/24 11:30 Respiratory Rate 15 04/25/24 11:30 Blood Pressure 95/56 04/25/24 11:30 Pulse Oximetry 100 04/25/24 11:30 Oxygen Delivery Me thod Nasal Cannula 04/25/24 06:42 Oxygen Flow Rate 5 04/25/24 06:42 MDM - Fever Medical Decision Making Patient with urosepsis likely due to 6.6 mm obstructing stone. We do not have urology available at this facility. We will transfer to [facility] [place] for further management and possible urinary stent as needed. Patient was provided with Rocephin, meropenem and bank due to her sepsis. Patient's vitals are stable and improved throughout her stay. Patient's baseline mentation is dementia however she became more alert while in the ER with what appears to be improving in her symptoms. Patient was accepted by Dr. Bret Rodas at [facility] in [place]. Patient was transferred via EMS in stable condition. Lab Data 04/25/24 07:10 04/25/24 07:10 Radiology Impressions Chest X-Ray 04/25/24 06:43 IMPRESSION: 1. Mild left lower lung opacities, see above discussion. 2. Other findings discussed above. Laboratory Results WBC 24.30 10^3/uL (3.29-11.43) H 04/25/24 07:10 RBC 4.16 10^6/uL (3.85-5.65) 04/25/24 07:10 Hgb 11.50 g/dL (11.27-16.99) 04/25/24 07:10 Hct 37.4 % (36-47) 04/25/24 07:10 MCV 89.9 fl (85-98) 04/25/24 07:10 MCH 27.6 pg (27-33) 04/25/24 07:10 MCHC 30.7 g/dL (30-55) 04/25/24 07:10 RDW 13.8 % (12.1-15.1) 04/25/24 07:10 Plt Count 239 10^3/cmm (157-399) 04/25/24 07:10 MPV 9.1 fL (7.4-10.4) 04/25/24 07:10 Neut % (Auto) 88.9 % 04/25/24 07:10 Lymph % (Auto) 5.4 % 04/25/24 07:10 [place] % (Auto) 4.2 % 04/25/24 07:10 Eos % (Auto) 0.1 % 04/25/24 07:10 Baso % (Auto) 0.2 % 04/25/24 07:10 Neut # (Auto) 21.62 10^3/uL (1.8-7.7) H 04/25/24 07:10 Lymph # (Auto) 1.3 10^3/uL (0.8-4.8) 04/25/24 07:10 [place] # (Auto) 1.0 10^3/uL (0.2-0.9) H 04/25/24 07:10 Eos # (Auto) 0.0 10^3/uL (0.0-0.8) 04/25/24 07:10 Baso # (Auto) 0.1 10^3/uL (0.0-0.1) 04/25/24 07:10 Nucleated RBC % (auto) 0 % 04/25/24 07:10 Nucleated RBCs # 0.0 /100WBC 04/25/24 07:10 Sodium 143 mmol/L (136-145) 04/25/24 07:10 Potassium 3.0 mmol/L (3.5-5.1) L 04/25/24 07:10 Chloride 106 mmol/L (98-107) 04/25/24 07:10 Carbon Dioxide 23 mmol/L (22-29) 04/25/24 07:10 Anion Gap 17.0 (5-19) 04/25/24 07:10 BUN 21 mg/dL (8-23) 04/25/24 07:10 Creatinine 1.8 mg/dL (0.5-0.9) H 04/25/24 07:10 GFR Calculation Not Reportable 04/25/24 07:10 Glucose 126 mg/dL (65-115) H 04/25/24 07:10 Calculated Osmolality 301 mOsm/kg (285-295) H 04/25/24 07:10 Lactic Acid 2.5 mmol/L (0.5-2.2) H 04/25/24 07:10 Lactic Acid (Sepsis) 2.5 mmol/L (0.5-2.2) H 04/25/24 10:02 Calcium 8.8 mg/dL (8.5-10.5) 04/25/24 07:10 All radiology interpretation(s) finalized by discharge EKG Data EKG 1: I personally reviewed and interpreted this EKG as follows: EKG interpretation date: 04/25/24 EKG interpretation time: 06:50 Interpretation: Heart rate 136, tachycardia, QRS 101, no acute ST change elevation noted. Discharge Plan Discharge Patient Disposition: Xfer Short-Term Hosp Clinical Impression: Sepsis, Ureterolithiasis, Urinary tract infection Condition: Stable Discharge Orders: Transfer Out of Facility (Order); Ordered 04/25/24 Ordered By: Shola Sanchez Referrals: Matthew Noel MD [Primary Care Provider] - Coding Level of Care Code ED [employer] for Chg Adamaris
[2024-04-25] MEDS: acetaminophen 325 mg Tablet 650 MG PO (07:14)
[2024-04-25] MEDS: sodium chloride 0.9% 1,000 ML 150 ML IV (07:18)
[2024-04-25] MEDS: cefTRIAXone 1,000 MG in sodium chloride 0.9% (plus) 50 ML 100 MG IV (07:21)
[2024-04-25 07:22] LABS: Basophils # 0.1 10^3/uL (0.0-0.1); Basophils % 0.2 %; Eosinophils % 0.1 %; Hematocrit 37.4 % (36-47); Lymphocytes # 1.3 10^3/uL (0.8-4.8); Lymphocytes % 5.4 %; Mean Corpuscular HGB Conc 30.7 g/dL (30-55); Mean Corpuscular Hemoglobin 27.6 pg (27-33); Mean Corpuscular Volume 89.9 fl (85-98); Mean Platelet Volume 9.1 fL (7.4-10.4); Monocytes % 4.2 %; Neutrophils # 21.62 10^3/uL (1.8-7.7); Neutrophils % 88.9 %; Nucleated Red Blood Cells % 0 %; Platelet Count 239 10^3/cmm (157-399); Red Blood Count 4.16 10^6/uL (3.85-5.65); Red Cell Distribution Width 13.8 % (12.1-15.1)
[2024-04-25 07:40] LABS: Lactic Sepsis W/Reflex 2.5 mmol/L (0.5-2.2)
[2024-04-25 07:41] LABS: Blood Urea Nitrogen 21 mg/dL (8-23); Calcium 8.8 mg/dL (8.5-10.5); Carbon Dioxide 23 mmol/L (22-29); Chloride 106 mmol/L (98-107); Creatinine Clr Calc Pharmacy 26.3838; Glucose 126 mg/dL (65-115); Osmolality Calculated 301 mOsm/kg (285-295); Sodium 143 mmol/L (136-145)
[2024-04-25] MEDS: meropenem 1,000 MG in sodium chloride 0.9% (plus) 50 ML 100 MG IV (08:43)
[2024-04-25 09:05] LABS: Reflex Lactate Order REFLEX LACTIC ORDERD
[2024-04-25] MEDS: vancomycin 1,000 MG in sodium chloride 0.9% 250 ML 250 MG IV (09:38)
[2024-04-25 10:45] LABS: Lactic Acid level (Lactate) 2.5 mmol/L (0.5-2.2)
[2024-04-25] MEDS: sodium chloride 0.9% 1,000 ML 75 ML IV (12:30)
== END 2024-04-25 14:19 | disposition short-term general hospital (02) ==
PROVIDERS: Emergency Provider Student in an Organized Health Care Education/Training Program; PCP Internal Medicine
DX: A41.9 Sepsis, unspecified organism (principal); N20.1 Calculus of ureter; N39.0 Urinary tract infection, site not specified; R00.0 Tachycardia, unspecified; Z86.73 Personal history of transient ischemic attack (TIA), and cerebral infarction without residual deficits; F03.90 Unspecified dementia, unspecified severity, without behavioral disturbance, psychotic disturbance, mood disturbance, and anxiety; Z85.118 Personal history of other malignant neoplasm of bronchus and lung
CPT/HCPCS: 36415; 71045; 80048; 83605; 85025; 87040; 96365; 96367; 99285; J0696; J2185; J3370; J7030; J7050

== ENCOUNTER 2024-11-16 11:28 | Emergency (ER) | payer MEDICARE, OTHER, SELFPAY ==
[2024-11-16 11:32] VITALS: BP 97/42; PULSE 70; RESP 16; TEMP 36.2; O2SAT 98
--- NOTE | 2024-11-16 11:38 | CT_ITS ---
WS: [id number] CT ABDOMEN PELVIS TECHNIQUE: Contrast-enhanced CT of the abdomen and pelvis with coronal and sagittal reformatted image s. CLINICAL INFORMATION: abd pain COMPARISON: 04/24/2024 DLP: 920.[address] scans at [facility] use at least one of these dose optimization techniques: automated e xposure control; mA and/or kV adjustment per patient size (includes targeted exams where dose is matc hed to clinical indication); or iterative reconstruction. FINDINGS: Lung bases are well aerated. Diffuse fatty infiltration of the liver. Normal portal vein and splenic vein. Normal spleen. Small esophageal atrial hernia. Fatty atrophy of the pancreas. Celiac and SMA ar e patent. Mild stenosis at the celiac origin with mild impingement by the median arcuate ligament. Th is is unchanged from prior studies. Adrenal glands are normal. Bilateral renal cortical atrophy. Smal l LEFT renal cyst measuring 1.8 cm Sigmoid diverticulosis. No evidence of acute diverticulitis. Tiny fat-containing umbilical hernia. LE FT ANGELA. Fat-containing RIGHT inguinal hernia. Mild spondylitic changes lumbar spine. No evidence of s mall or large bowel obstruction. Osteopenia. CT/CT abdomen pelvis w con* [id number] IMPRESSION: 1. Small esophageal hiatal hernia. 2. Sigmoid diverticulosis. No evidence of acute diverticulitis. 3. Diffuse fatty filtration of the liver. 4. Mild renal cortical atrophy. No hydronephrosis. 5. Fat-containing RIGHT inguinal hernia. 6. LEFT ANGELA. 7. No other acute findings.
--- NOTE | 2024-11-16 11:47 | ED_ITS ---
HPI - Abdominal Pain 2 General: Chief Complaint: Abdominal Pain Stated Complaint: abd pain, vomiting Time Seen by Provider: 11/16/24 11:31 Source: patient and EMS Mode of arrival: EMS Limitations: no limitations History of Present Illness: 74-year-old female who is here from [facility] with abdominal pain along with vomiting. She states she has had multiple episodes of vomiting today has pain that is diffuse in nature rates it 8 out of 10 has had a history of bowel obstruction in the past she denies any diarrhea denies any fevers. Denies any worse improved factors Associated Symptoms: Reports nausea and vomiting; Denies chills, diarrhea, dysuria and fever(s) Related Data Home Medications Medication Instructions Recorded Confirmed levothyroxine 25 mcg tablet 25 mcg PO DAILY@10/27/20 11/16/24 (Synthroid) pantoprazole 40 mg tablet,delayed 40 mg PO DAILY@10/27/20 11/16/24 release aspirin 81 mg chewable tablet 81 mg PO DAILY@12/14/20 11/16/24 atorvastatin 40 mg tablet 40 mg PO BEDTIME@12/14/20 11/16/24 acetaminophen 650 mg 650 mg PO Q6H PRN Pain 06/20/23 11/16/24 tablet,extended release guaifenesin 100 mg/5 mL oral 200 mg PO Q4H PRN Cough 06/20/23 11/16/24 liquid (Marlys-Tussin) ondansetron HCl 8 mg tablet 8 mg PO Q12H PRN Nausea And 06/20/23 11/16/24 Vomiting amiodarone 200 mg tablet (Pacerone) 200 mg PO DAILY 11/16/24 11/16/24 apixaban 5 mg tablet (Eliquis) 5 mg PO BID 11/16/24 11/16/24 citalopram 20 mg tablet 20 mg PO DAILY 11/16/24 11/16/24 ferrous gluconate 324 mg (38 mg 324 mg PO DAILY 11/16/24 11/16/24 iron) tablet ipratropium 0.5 mg-albuterol 3 mg 3 ml inhalation Q6H PRN Shortness 11/16/24 11/16/24 (2.5 mg base)/3 mL nebulization Of Breath Or Wheezing soln metoprolol succinate 50 mg 50 mg PO DAILY 11/16/24 11/16/24 tablet,extended release 24 hr Previous Rx's Medication Instructions Recorded hydrocodone 5 mg-acetaminophen 325 1 tab PO Q6H PRN pain #20 tabs 04/24/24 mg tablet tamsulosin 0.4 mg capsule (Flomax) 0.4 mg PO DAILY #30 caps 04/24/24 ondansetron 4 mg disintegrating 4 mg PO Q6H PRN nausea and 11/16/24 tablet vomiting #14 tabs Allergies Allergy/AdvReac Type Severity Reaction Status Date / Time aspirin Allergy Unknown Verified 04/24/24 01:39 [From Empirin W/Codeine] codeine Allergy Unknown Verified 04/24/24 01:39 [From Empirin W/Codeine] isosorbide [From Imdur] Allergy Unknown Verified 04/24/24 01:39 lorazepam [From Ativan] Allergy Unknown Verified 06/20/23 11:06 Review of Systems 2 Const: Denies: fever(s), chills, body aches or change in appetite ENMT: Denies: throat pain or dental pain Card: Denies: chest pain Resp: Denies: dyspnea GI: Reports: abdominal pain, nausea and vomiting; Denies: diarrhea : Denies: dysuria Musc: Denies: neck pain or back pain Skin/Breast: Denies: rash Neuro: Denies: headache(s) PFSH ED 2 PFSH: Medical History Acute CVA (cerebrovascular accident) Vomiting alone History of pulmonary embolism History of CVA (cerebrovascular accident) Chronic diarrhea Cerebral aneurysm Hypertriglyceridemia Primary osteoarthritis of left knee Hyperthyroidism Cataract Dementia with behavioral disturbance Cognitive decline KRISTIN (obstructive sleep apnea) GERD (gastroesophageal reflux disease) H/O: lung cancer A-fib Surgical History S/P ventriculoperitoneal shunt S/P colonoscopy 06/14/2014- REFLUX ESOGAPHAGITIS- GASTRITIS History of esophagogastroduodenoscopy (EGD) 06/14/2014 S/P appendectomy S/P arterial stent S/P hysterectomy S/P hemorrhoidectomy S/P aneurysm repair X3 S/P PARTS COORDINATOR shunt Social History Smoking and tobacco/nicotine status: never used tobacco/nicotine Alcohol intake: never Substance/Drug Use: never Household members: spouse Housing: House Marital status: Physical Exam 2 Const: COMMON NORMALS: patient oriented x3 HENMT: COMMON NORMALS: normocephalic and atraumatic HEAD & SCALP: n ormocephalic and atraumatic Eye: COMMON NORMALS: Equal, round and reactive pupils present and EOMs intact bilaterally PUPIL: Yes Equal, round and reactive pupils present Neck/C-Spine: COMMON NORMALS: full ROM and supple Chest: COMMONS NORMALS: normal inspection of the chest Resp: COMMON NORMALS: normal respiratory effort, No retractions, No use of accessory muscles and clear to auscultation bilaterally AUSCULTATION: clear to auscultation bilaterally Cardio: COMMON NORMALS: regular rate, regular rhythm and No murmurs present (Cardio) RATE: regular rate RHYTHM: regular rhythm GI: COMMON NORMALS: no masses OTHER: Abdominal distention noted with diffuse tenderness Extremity: COMMON NORMALS: normal to inspection and full ROM Neuro: COMMON NORMALS: patient oriented x3, moves all extremities and no focal motor deficits Psych: COMMON NORMALS: mental status grossly normal, Normal thought process present and cooperative THOUGHT PROCESS: Normal thought process present Skin: COMMON NORMALS: no rashes or lesions noted and no wounds GENERAL SKIN EXAM: no rashes or lesions noted Course 2 Vital Signs: Vital signs: Vital Signs Temperature 97.2 F L 11/16/24 11:32 Pulse Rate 80 11/16/24 12:59 Respiratory Rate 16 11/16/24 11:32 Blood Pressure 131/71 11/16/24 12:59 Pulse Oximetry 98 11/16/24 12:59 Oxygen Delivery Me thod Room Air 11/16/24 12:59 MDM - Abdominal Pain Medical Decision Making Patient presents for abdominal pain low vomiting blood work CT is normal no signs acute surgical abdomen and she feels improved she stable for discharge back to assisted. Medical Records I reviewed the patient's medical records. Lab Data I reviewed the patient's lab results. 11/16/24 12:27 11/16/24 12:27 Labs/Radiology: Radiology Impressions Abdomen/Pelvis CT 11/16/24 11:38 IMPRESSION: 1. Small esophageal hiatal hernia. 2. Sigmoid diverticulosis. No evidence of acute diverticulitis. 3. Diffuse fatty filtration of the liver. 4. Mild renal cortical atrophy. No hydronephrosis. 5. Fat-containing RIGHT inguinal hernia. 6. LEFT ANGELA. 7. No other acute findings. Laboratory Results WBC 9.83 10^3/uL (3.29-11.43) 11/16/24 12: RBC 4.18 10^6/uL (3.85-5.65) 11/16/24 12: Hgb 12.00 g/dL (11.27-16.99) 11/16/24 12: Hct 38.2 % (36-47) 11/16/24 12: MCV 91.4 fl (85-98) 11/16/24 12: MCH 28.7 pg (27-33) 11/16/24 12: MCHC 31.4 g/dL (30-55) 11/16/24 12: RDW 13.1 % (12.1-15.1) 11/16/24 12: Plt Count 246 10^3/cmm (157-399) 11/16/24 12: MPV 8.7 fL (7.4-10.4) 11/16/24 12: Neut % (Auto) 70.7 % 11/16/24 12: Lymph % (Auto) 19.0 % 11/16/24 12: [place] % (Auto) 7.7 % 11/16/24 12: Eos % (Auto) 1.2 % 11/16/24 12: Baso % (Auto) 0.4 % 11/16/24: Neut # (Auto) 6.94 10^3/uL (1.8-7.7) 11/16/24 12: Lymph # (Auto) 1.9 10^3/uL (0.8-4.8) 11/16/24: [place] # (Auto) 0.8 10^3/uL (0.2-0.9) 11/16/24 12: Eos # (Auto) 0.1 10^3/uL (0.0-0.8) 11/16/24 12: Baso # (Auto) 0.0 10^3/uL (0.0-0.1) 11/16/24 12:27 Nucleated RBC % (auto) 0 % 11/16/24 12: Nucleated RBCs # 0.0 /100WBC 11/16/24 12:27 Sodium 139 mmol/L (136-145) 11/16/24 12:27 Potassium 4.1 mmol/L (3.5-5.1) 11/16/24 12: Chloride 100 mmol/L (98-107) 11/16/24 12: Carbon Dioxide 28 mmol/L (22-29) 11/16/24 12: Anion Gap 15.1 (5-19) 11/16/24 12:27 BUN 18 mg/dL (8-23) 11/16/24 12: Creatinine 1.2 mg/dL (0.5-0.9) H 11/16/24 12: GFR Calculation Not Reportable 11/16/24 12: Glucose 92 mg/dL (65-115) 11/16/24 12: Calculated Osmolality 290 mOsm/kg (285-295) 11/16/24 12: Calcium 9.3 mg/dL (8.5-10.5) 11/16/24 12: Total Bilirubin 0.4 mg/dL (0.15-1.2) 11/16/24 12: AST 19 U/L (0-32) 11/16/24 12: ALT 21 U/L (0-33) 11/16/24 12: Alkaline Phosphatase 234 U/L (35-105) H 11/16/24 12:27 Total Protein 7.6 g/dL (6.6-8.7) 11/16/24 12: Albumin 4.0 g/dL (3.5-5.2) 11/16/24 12: Globulin 3.6 g/dL (1.3-4.6) 11/16/24 12:27 Lipase 33 U/L (13-60) 11/16/24 12:27 Urine Color Yellow (Yellow) 11/16/24 12:55 Urine Appearance Clear (CLEAR) 11/16/24 12:55 Urine pH 6.0 (5-7) 11/16/24 12:55 Ur Specific Glide 1.022 (1.005-1.030) 11/16/24 12:55 Urine Protein 1+ (Negative) A 11/16/24 12:55 Urine Glucose (UA) Negative (Normal) 11/16/24 12:55 Urine Ketones Trace (Negative) 11/16/24 12:55 Urine Blood Negative (Negative) 11/16/24 12:55 Urine Nitrate Negative (Negative) 11/16/24 12:55 Urine Bilirubin Negative (Negative) 11/16/24 12:55 Urine Urobilinogen 1.0 mg/dL (Negative) 11/16/24 12:55 Ur Leukocyte Esterase Negative (Negative) 11/16/24 12:55 Urine RBC 3-5 /hpf (0-2) 11/16/24 12:55 Urine WBC 0-5 /hpf (0-5) 11/16/24 12:55 Ur Squamous Epith Cells 0-5 /hpf (0-5) 11/16/24 12:55 Amorphous Sediment Not Reportable 11/16/24 12:55 Urine Bacteria None seen /hpf (NONE) 11/16/24 12:55 Hyaline Casts 28.13 /lpf 11/16/24 12:55 Urine Mucus 1+ /hpf 11/16/24 12:55 All radiology interpretation(s) finalized by discharge Discharge Plan Discharge Patient Disposition: Home Clinical Impression: Abdominal pain, Vomiting Condition: Stable Prescriptions: New ondansetron 4 mg tablet,disintegrating 4 mg PO Q6H PRN (Reason: nausea and vomiting) Qty: 14 0RF No Action levothyroxine [Synthroid] 25 mcg tablet 25 mcg PO DAILY@05 pantoprazole 40 mg tablet,delayed release (DR/EC) 40 mg PO DAILY@06 atorvastatin 40 mg Tablet 40 mg PO BEDTIME@20 aspirin 81 mg Tablet,Chewable 81 mg PO DAILY@08 ondansetron HCl 8 mg Tablet 8 mg PO Q12H PRN (Reason: Nausea And Vomiting) guaifenesin [Marlys-Tussin] 100 mg/5 mL Liquid 200 mg PO Q4H PRN (Reason: Cough) acetaminophen 650 mg Tablet Extended Release 650 mg PO Q6H PRN (Reason: Pain) ipratropium-albuterol 0.5 mg-3 mg(2.5 mg base)/3 mL solution for nebulization 3 ml INHALATION Q6H PRN (Reason: Shortness Of Breath Or Wheezing) metoprolol succinate 50 mg tablet extended release 24 hr 50 mg PO DAILY citalopram 20 mg tablet 20 mg PO DAILY ferrous gluconate 324 mg (38 mg iron) Tablet 324 mg PO DAILY Eliquis 5 mg tablet 5 mg PO BID amiodarone [Pacerone] 200 mg tablet 200 mg PO DAILY hydrocodone-acetaminophen 5-325 mg tablet 1 tab PO Q6H PRN (Reason: pain) Qty: 20 0RF tamsulosin [Flomax] 0.4 mg capsule 0.4 mg PO DAILY Qty: 30 0RF Discharge Orders: Discharge ED (Routine); Ordered 11/16/24 Ordered By: Tara Russell Referrals: Matthew Noel MD [Primary Care Provider] - Discharge Diet: Advance as tolerated Discharge Activity: Resume usual activity Patient Instructions: Abdominal Pain (ED) Coding Level of Care Code ED [employer] for Eidth Bailon
--- NOTE | 2024-11-16 11:56 | PC.PHAR ---
Pt is from [facility]
[2024-11-16 12:33] LABS: Basophils % 0.4 %; Eosinophils # 0.1 10^3/uL (0.0-0.8); Eosinophils % 1.2 %; Hematocrit 38.2 % (36-47); Lymphocytes # 1.9 10^3/uL (0.8-4.8); Mean Corpuscular HGB Conc 31.4 g/dL (30-55); Mean Corpuscular Hemoglobin 28.7 pg (27-33); Mean Corpuscular Volume 91.4 fl (85-98); Mean Platelet Volume 8.7 fL (7.4-10.4); Monocytes # 0.8 10^3/uL (0.2-0.9); Monocytes % 7.7 %; Neutrophils # 6.94 10^3/uL (1.8-7.7); Neutrophils % 70.7 %; Nucleated Red Blood Cells % 0 %; Platelet Count 246 10^3/cmm (157-399); Red Blood Count 4.18 10^6/uL (3.85-5.65); Red Cell Distribution Width 13.1 % (12.1-15.1); White Blood Count 9.83 10^3/uL (3.29-11.43)
[2024-11-16 12:55] LABS: Alanine Aminotransferase 21 U/L (0-33); Alkaline Phosphatase 234 U/L (35-105); Anion Gap 15.1 (5-19); Aspartate Amino Transferase 19 U/L (0-32); Blood Urea Nitrogen 18 mg/dL (8-23); Calcium 9.3 mg/dL (8.5-10.5); Carbon Dioxide 28 mmol/L (22-29); Chloride 100 mmol/L (98-107); Creatinine Clr Calc Pharmacy 43.7648; Globulin 3.6 g/dL (1.3-4.6); Glucose 92 mg/dL (65-115); Lipase 33 U/L (13-60); Osmolality Calculated 290 mOsm/kg (285-295); Potassium 4.1 mmol/L (3.5-5.1); Sodium 139 mmol/L (136-145); Total Bilirubin 0.4 mg/dL (0.15-1.2); Total Protein 7.6 g/dL (6.6-8.7)
[2024-11-16 12:59] VITALS: BP 131/71; PULSE 80; O2SAT 98
[2024-11-16 13:07] LABS: Bilirubin Urine Negative (Negative); Blood Urine Negative (Negative); Glucose Urine UA Negative (Normal); Ketones Urine Trace (Negative); Leukocyte Esterase Urine Negative (Negative); Nitrate Urine Negative (Negative); Protein Urine 1+ (Negative); Specific Gravity, Urine 1.022 (1.005-1.030); Urine Appearance Clear (CLEAR); Urine Color Yellow (Yellow)
[2024-11-16] MEDS: iohexol 350 mg/mL 500 mL Btl (per mL) IV (13:07)
[2024-11-16 13:09] LABS: Add Urine Microscopic? YES; Bacteria Urine None Seen /hpf; Hyaline Casts Urine 28.13 /lpf; Squamous Epithelial Cell Urine 0-5 /hpf (0-5); WBC Urine 0-5 /hpf (0-5)
[2024-11-16 13:32] LABS: UA Slide Review UA Slide Review Perf
[2024-11-16 13:33] LABS: Add Urine Culture? No; Mucus Urine 1+ /hpf
[2024-11-16 14:40] VITALS: BP 145/76; PULSE 81; O2SAT 96
[2024-11-16 18:31] VITALS: BP 188/92; PULSE 79; O2SAT 97
[2024-11-16 21:20] VITALS: BP 182/96; PULSE 77; O2SAT 97
== END 2024-11-16 21:22 | disposition home or self-care (01) ==
PROVIDERS: Emergency Provider Emergency Medicine; PCP Internal Medicine
DX: R10.9 Unspecified abdominal pain (principal); R11.10 Vomiting, unspecified; Z79.01 Long term (current) use of anticoagulants; Z86.73 Personal history of transient ischemic attack (TIA), and cerebral infarction without residual deficits
CPT/HCPCS: 74177; 80053; 81001; 83690; 85025; 99285